=== PATIENT | female | born 1985 | race Caucasian/White ===

== ENCOUNTER → 2018-04-17 10:10 | Outpatient (CLI) | payer OTHER, SELFPAY ==
[2018-04-17 11:45] LABS: Magnesium 2.1 mg/dL (1.6-2.6); T4 Free Direct 0.85 ng/dL (0.76-1.46); Thyroid Stim Hormone (TSH) 1.52 uIU/mL (0.358-3.74)
== END ==
PROVIDERS: Family Provider Family Medicine; PCP Family Medicine; Visit Provider Family Medicine
DX: R00.2 Palpitations (principal)
CPT/HCPCS: 36415; 83735; 84439; 84443

== ENCOUNTER → 2018-06-13 13:14 | Outpatient (CLI) | payer OTHER, SELFPAY ==
--- NOTE | 2018-06-13 13:20 | RAD_ITS ---
STUDY: X-RAY - LEFT FOOT CLINICAL: Female, 32 years old. Left foot pain, predominantly in the heel TECHNIQUE: 3 view(s) of the foot. COMPARISON: None. FINDINGS: No acute fracture or dislocation. Prominent accessory ossicle or unhealed fracture at the base of the fifth metatarsal. No significant plantar spur. Normal soft tissues. RAD/Foot min 3 Views IMPRESSION: No acute findings. No significant plantar spur. Remainder as above Electronically Signed: Marvin Boudreaux DO at 12:10 EDT Tel , Service support ,
== END ==
PROVIDERS: Family Provider Family Medicine; PCP Family Medicine; Referring Provider Family Medicine; Visit Provider Family Medicine
DX: M72.2 Plantar fascial fibromatosis (principal); I49.3 Ventricular premature depolarization; R00.2 Palpitations
CPT/HCPCS: 73630; 93225; 93226

== ENCOUNTER → 2018-06-28 07:49 | Outpatient (CLI) | payer OTHER, SELFPAY ==
[2018-06-27 15:36] VITALS: BMI 54.3
--- NOTE | 2018-06-28 07:52 | ECHOCS_ITS ---
Reason For Study: Palpitations Procedure This was a 2D Doppler, Color Flow transthoracic echocardiogram. The study was technically difficult. Contrast injection was performed. Exam performed in department. Left Ventricle Normal LV size. Left ventricular systolic function is normal. The estimated ejection fraction is 65 %. Normal diastology for age. No regional wall motion abnormalities noted. Right Ventricle Normal RV size. Normal systolic function. Atria Normal left atrium. Normal right atrium. No doppler evidence for ASD. Bubble contrast study negative for right to left interatrial shunt. Mitral Valve There is no mitral annular calcification. Normal mitral valve. Trivial mitral valve insufficiency. Tricuspid Valve Normal tricuspid valve. Trivial tricuspid valve insufficiency. Unable to estimate RV systolic pressure/pulmonary artery pressure due to technically difficult study. Aortic Valve The aortic valve is not well visualized. Pulmonic Valve The pulmonic valve is not well visualized. Great Vessels lThe aortic root is not well visualized. Pericardium/Pleural No pericardial effusion. Medication 22 gauge I.V. with prn adaptor inserted into left arm. Performed a rapid injection of agitated mix of 9 cc saline and 1cc air to assess for atrial septal defect. Diluted definity 4ml given slow IV push to enhance endocardial definition. MMode/2D Measurements & Calculations LVIDd: 4.8 cm IVSd: 1.0 cm LA dimension: 3.7 cm LVIDs: 3.6 cm LVPWd: 1.4 cm RVDd: 4.3 cm FS: 25.1 % LAV(MOD-bp): 65.3 ml LVAd ap4: 37.5 cm2 SV(MOD-sp4): 75.8 ml LAV(MOD-bp) Indexed: 26.6 ml/m2 EDV(MOD-sp4): 129.8 ml LAV(MOD-sp2): 61.4 ml EDV(sp4-el): 133.4 ml LAV(MOD-sp4): 57.7 ml LVAs ap4: 21.5 cm2 ESV(MOD-sp4): 54.1 ml ESV(sp4-el): 55.8 ml EF(MOD-sp4): 58.4 % EF(sp4-el): 58.1 % SV(sp4-el): 77.6 ml LA A4 area: 20.1 cm2 RA A4 area: 9.9 cm2 Time Measurements MV dec time: 0.15 sec Doppler Measurements & Calculations MV E max kaleb: 112.7 cm/sec Lat Peak E' Kaleb: 15.9 cm/sec Med Peak E' Kaleb: 11.6 cm/sec MV A max kaleb: 51.8 cm/sec E/E' lat: 7.1 E/E' med: 9.7 MV E/A: 2.2 Ao V2 max: 158.9 cm/sec LV V1 max: 130.2 cm/sec PA V2 max: 99.2 cm/sec Ao max P.1 mmHg LV V1 max P.8 mmHg Ao V2 mean: 109.6 cm/sec LV V1 mean P.2 mmHg Ao mean P.4 mmHg LV V1 mean: 81.6 cm/sec Ao V2 VTI: 31.2 cm LV V1 VTI: 27.8 cm Interpretation Summary The study was technically difficult. Contrast injection was performed. Left ventricular systolic function is normal. The estimated ejection fraction is 65 %. Trivial mitral valve insufficiency. Trivial tricuspid valve insufficiency. Unable to estimate RV systolic pressure/pulmonary artery pressure due to technically difficult study. Normal diastology for age. Bubble contrast study negative for right to left interatrial shunt. Ordering Physician: Homero Mohan Performed By: Refugio Flores RCS
== END ==
PROVIDERS: Family Provider Internal Medicine; PCP Internal Medicine; Visit Provider Internal Medicine Cardiovascular Disease
DX: I49.3 Ventricular premature depolarization (principal); R00.2 Palpitations
CPT/HCPCS: 93306; Q9957; A4216; C8929

== ENCOUNTER → 2018-07-24 07:40 | Outpatient (CLI) | payer OTHER, SELFPAY ==
[2018-07-12 10:41] VITALS: BMI 54.3
--- NOTE | 2018-07-24 09:37 | RAD_ITS ---
STUDY: X-RAY CHEST REASON FOR EXAM: Female, 32 years old. Shortness of breath. Cough. TECHNIQUE: PA and lateral views of the chest. COMPARISON: November 20, 2015. FINDINGS: Mildly improved inspiratory effort RIBS prior study. There is no infiltrate or mass. There is no demonstrated pleural abnormality. Normal size heart. Normal mediastinum and talat. Normal visualized pulmonary arteries. Normal visualized aortic arch and descending thoracic aorta. Normal visualized thoracic spine. Normal visualized ribs, clavicles, and shoulders. There is no demonstrated abnormality of the visualized soft tissue structures of the upper abdomen. RAD/Chest PA and Lateral IMPRESSION: No acute cardiopulmonary disease. Electronically Signed: Tod Ellis DO at 22:21 EST Tel [phone], Service support ,
--- NOTE | 2018-07-24 16:19 | PFTCOMP_ITS ---
COMPLETE PULMONARY FUNCTION TEST INTERPRETATION Brief HPI: Patient is a 32 year old female, currently under the care of Dr. Mohan, who presents to [facility] for complete pulmonary function tests secondary to diagnosis of dyspnea. Respiratory therapist reports good effort and reproducible results. Interpretation: Forced expiration spirometry shows no large airways obstructive ventilatory defect with an FEV1 of 71% predicted. There is no significant bronchodilator response by strict ATS criteria. Spirograms are of good quality and plateau normally. The respiratory flow volume loop shows decreased expiratory flow rates at high lung volumes consistent with small airways obstruction. Lung volumes by body plethysmography show total lung capacity at the lower limit of normal at 4.67 L, 88% predicted. All other lung volumes are within normal limits. Diffusion capacity by carbon monoxide is slightly decreased at 72% predicted. The airway resistance is normal. Compared to previous pulmonary function tests from 11/08/2016, there has been a significant reduction in FVC, FEV1 and TLC by 14%, 14% and 11% respectively. Impression: These pulmonary function tests are grossly within normal limits, but lung volumes are at the lower limit of normal. Cannot exclude early restrictive lung disease, especially given decrease compared to previous testing.
--- OUTSIDE RECORDS SUMMARY | 2018-09-09 05:41 | XMS RPT_ITS ---
:1985 Author Organization OHIP Support Name Relationship Address Phone GEOVANY GLOVER Unavailable [address] + [place] [address] GABBY CRISTINA Unavailable [address] + [place] [address] [facility] Unavailable [address] + [place] [address] GEOVANY GLOVER Unavailable [address] + [place] [address] GABBY CRISTINA Unavailable [address] + [place] [address] [facility] Unavailable [address] + [place] [address] GEOVANY GLOVER Unavailable [address] + [place] [address] GABBY CRISTINA Unavailable [address] + [place] [address] [facility] Unavailable [address] + [place] [address] ADALBERTO GEOVANY Unavailable [address] + [place] [address] GABBY CRISTINA Unavailable [address] + [place] [address] [facility] Unavailable [address] + [place] [address] ADALBERTO GEOVANY Unavailable [address] + [place] [address] GABBY CRISTINA Unavailable [address] + [place] [address] [facility] Unavailable [address] + [place] [address] GLOVER, GEOVANY Unavailable [address] + [place] [address] JAYANT CRISTINAELL Unavailable [address] + [place] [address] [facility] Unavailable [address] + [place] [address] GLOVER, GEOVANY Unavailable [address] + [place] [address] SHYANNE MACHELL Unavailable [address] + [facility] [place] [address] [facility] Unavailable [address] + [place] [address] GLOVER, GEOVANY Unavailable [address] + [place] [address] JAYANT CRISTINAELL Unavailable [address] + [place] [address] [facility] Unavailable [address] + [place] [address] GLOVER, GEOVANY Unavailable [address] + [place] [address] JAYANT CRISTINAELL Unavailable [address] + [place] [address] [facility] Unavailable [address] + [place] [address] GLOVER, GEOVANY Unavailable [address] + [place] [address] SHYANNE MACHELL Unavailable [address] + [place] [address] [facility] Unavailable [address] + [place] [address] GLOVER, GEOVANY Unavailable [address] + [place] [address] SHYANNE MACHELL Unavailable [address] + [place] [address] [facility] Unavailable [address] + [place] [address] GLOVER, GEOVANY Unavailable [address] + [place] [address] GABBY CRISTINA Unavailable [address] + [place] [address] [facility] Unavailable [address] + [place] [address] [facility] Unavailable [address] + [place] [address] [facility] Unavailable [address] + [place] [address] [facility] Unavailable [address] + [place] [address] GLOVER, KERRIE Unavailable [address] + [place] [address] [facility] Unavailable [address] + [place] [address] [facility] Unavailable [address] + [place] [address] [facility] Unavailable [address] + [place] [address] GLOVER, KERRIE Unavailable [address] + [place] [address] GABBY CRISTINA Unavailable [address] + [place] [address] [facility] Unavailable [address] + [place] [address] GABBY CRISTINA Unavailable [address] + [place] [address] [facility] Unavailable [address] + [place] [address] GABBY CRISTINA Unavailable [address] + [facility] [place] [address] [facility] Unavailable [address] + [place] [address] GABBY CRISTINA Unavailable [address] + [place] [address] [facility] Unavailable [address] + [place] [address] GABBY CRISTINA Unavailable [address] + [place] [address] [facility] Unavailable [address] + [place] [address] Care Team Providers Name Role Phone MINNIE POLO (TOUR OPERATOR) Attending Unavailable POLO, MINNIE (TOUR OPERATOR) Referring Unavailable POLO, MINNIE (TOUR OPERATOR) Attending Unavailable POLO, MINNIE (TOUR OPERATOR) Referring Unavailable Moodispaw, Homero Attending Unavailable Moodispaw, Homero Referring Unavailable Oleghe, Efewongbe Primary Care Unavailable JAMES SUAREZ Attending Unavailable Oleghe, Efewongbe Attending Unavailable Oleghe, Efewongbe Primary Care Unavailable Oleghe, Efewongbe Attending Unavailable Oleghe, Efewongbe Primary Care Unavailable Moodispaw, Homero Attending Unavailable Oleghe, Efewongbe Primary Care Unavailable Moodispasheila, Homero Referring Unavailable Moodispaw, Homero Attending Unavailable Oleghe, Efewongbe Primary Care Unavailable Moodispaw, Homero Referring Unavailable Moodispaw, Homero Attending Unavailable Nadege, Kenyon Referring Unavailable Moodispaw, Homero Attending Unavailable Moodispaw, Homero Referring Unavailable Oleghe, Efewongbe Attending Unavailable Oleghe, Efewongbe Referring Unavailable Nadege, Kenyon Primary Care Unavailable Nadege, Kenyon Attending Unavailable Nadege, Kenyon Referring Unavailable MoodispaHomero sosa Consulting Unavailable MoodispaHomero sosa Attending Unavailable MoodispawHomero Referring Unavailable Oleghe, Efewongbe Primary Care Unavailable Moodlasha, Homero Attending Unavailable NadegeKenyon wallace Referring Unavailable Guicho Hollis Attending Unavailable Mary Riley Referring Unavailable Nadege, Kenyon Attending Unavailable Nadege, Kenyon Referring Unavailable Nadege, Kenyon Primary Care Unavailable NadegeKenyon wallace Attending Unavailable Nadege, Kenyon Primary Care Unavailable Nadege, Kenyon Attending Unavailable Nadege, Kenyon Referring Unavailable Nadege, Kenyon Primary Care Unavailable ASSESSMENT, HEALTH RISK Attending Unavailable ASSESSMENT, HEALTH RISK Referring Unavailable Nadege, Kenyon Primary Care Unavailable Al Prajapati Attending Unavailable Moodispaw, Homero Referring Unavailable Al Prajapati Attending Unavailable Oleghe, Efewongbe Referring Unavailable Moodispaw, Homero Attending Unavailable MoodispawHomero Referring Unavailable Oleghe, Efewongbe Primary Care Unavailable MoodispaHomero sosa Consulting Unavailable Moodispaw, Homero Attending Unavailable OlegheSatishonggalina Primary Care [facility] Unavailable [facility] Referring Unavailable PROBLEMS PROBLEMS DATE TYPE CONDITION / CODE ATTENDING STATUS SOURCE 08/31/2018 Unknown E66.9 - Obesity, Olegallitoe, Active [place] unspecified / ewong[facility] E66.9(ICD-10) Hospital Repository 08/31/2018 Unknown Z71.3 - Dietary Oleghe, Active [place] counseling and [facility] Community surveillance / Hospital Z71.3(ICD-10) Repository 08/29/2018 Unknown M79.672 - Pain in [place], [facility] [place] [facility] M79.672(ICD-10) Hospital Repository 08/23/2018 Unknown I10 - Essential MoodispaHomero sosa Active [place] (primary) Community hypertension / Hospital I10(ICD-10) Repository 08/10/2018 Unknown J18.9 - Pneumonia, HEVER SUAREZLEY Active [place] unspecified organism Community / J18.9(ICD-10) Hospital Repository 08/01/2018 Unknown J45.40 - Moderate AloAl suggs Active [place] persistent asthma, Community uncomplicated / Hospital J45.40(ICD-10) Repository 08/20/2018 Unknown I36.1 - Nonrheumatic Telma, Guicho Active [place] tricuspid (valve) Community insufficiency / Hospital I36.1(ICD-10) Repository 07/27/2018 Unknown I49.3 - Ventricular MoodispaHomero sosa Active [place] premature Community depolarization / Hospital I49.3(ICD-10) Repository 07/27/2018 Unknown R00.2 - Palpitations MoodispaHomero sosa Active [place] / R00.2(ICD-10) Community Hospital Repository 07/27/2018 Unknown I49.1 - Atrial MoodispaHomero sosa Active [place] premature Community depolarization / Hospital I49.1(ICD-10) Repository 08/02/2018 Unknown R06.02 - Shortness AloAl suggs Active [place] of breath / Community R06.02(ICD-10) Hospital Repository 06/27/2018 Unknown I34.1 - Nonrheumatic Oleghe, Active [place] [facility]valve[facility] prolapse [facility] I34.1(ICD-10) Repository 06/25/2018 Unknown 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 [place] fascial fibromatosis [facility] / M72.2(ICD-10) Hospital Repository PROCEDURES PROCEDURES No Procedure Records FoundRESULTS RESULTS RENAL ARTERY DUPLEX Observed: 09/04/2018 Status: F Source: [place] 11:08 PM [facility] REPOSITORY [facility] Cardiovascular Services [address] [place] [address] Renal Artery Duplex Ultrasound 09/03/18 0854 MR#: [id number] Acct: [id number] Name: GARRY GLOVER Rep #: [id number] : 1985 33 From: Manuel Henderson MD Attending Dr: Homero Mohan MD Status: REG CLI Ordering Dr: Homero Mohan MD Date: 09/03/18 Location: [facility] Sex: F C Admitted: Reason For Study: HYPERTENSION Right Renal Artery Left Renal Artery Right renal artery ostium Left renal artery ostium 130.0/35.1 129.0/36.9 RSV/EDV. PSV/EDV. Right renal artery proximal Left renal artery proximal PSV/EDV 122.0/32.6 PSV/EDV. 121.0/32.7 . Right renal artery mid 130.0/28.8 Left renal artery mid 122.0/29.2 PSV/EDV. PSV/EDV . Right renal artery distal Left renal artery distal 122.0/40.1 139.0/41.6 PSV/EDV. PSV/EDV. Right Renal Parenchyma Left Renal Parenchyma Upper Pole Medula 43.8/14.1 Left upper pole medulla 52.9/18.9 PSV/EDV. PSV/EDV . Right upper pole medulla EDR .32 . Left upper pole medulla EDR .36 . Right upper pole medulla R.I. .68 . Left upper pole medulla R.I. .64 . Upper Dipak Cortx 32.7/10.7 PSV/EDV. UP Cortex 29.0/9.2 PSV/EDV. Right upper pole cortex EDR .33 . Left upper pole cortex EDR .32 . Right upper pole cortex R.I. .67 . Left upper pole cortex R.I. .68 . Right lower Pole medulla 31.2/12.8 Left lower Pole medulla 42.8/13.4 PSV/EDV . PSV/EDV . Right lower pole medulla EDR .41 . Left lower pole medulla EDR .31 . Right lower pole medulla R.I. .59 . Left lower pole medulla R.I. .69 . Lower Pole Cortex 32.1/10.1 Lower Pole Cortx 34.8/9.8 PSV/EDV. PSV/EDV. Left lower pole cortex EDR .28 . Right lower pole cortex EDR .31 . Left lower pole cortex R.I. .72 . Right lower pole cortex R.I. .69 . Left Renal Hilar Right Renal Hilar LT Hilar avg 66.6/17.3 PSV/EDV . Right Hilar avg 70.7/26.4 PSV/EDV. Left hilar acceleration time 59 Right hilar acceleration time 59 m/sec. m/sec. Left Renal Dimensions Right Renal Dimensions Left kidney size 11.5 cm . Right kidney size 10.6 cm . Left cortical dimension 1.5 cm . Right cortical dimension 1.5 cm . Aorta Unable to visualize aorta due to body habitus. Interpretation Summary Renal artery velocities are bilaterally normal. Acceleration times are normal bilaterally. There is no evidence of hemodynamically significant renal artery stenosis on either side. Renovascular resistance appears to be bilaterally normal . Cortical dimensions are bilaterally normal. Kidneys appear normal in size bilaterally. The intra-abdominal aorta was not visualized due to the patient's body habitus. Ordering Physician: Homero Mohan Referring Physician: Lisset Ford Performed By: Vonda Fischer RVT 09/04/18 2307 Date Manuel Henderson MD CC: Lisset Ford MD; Homero Mohan MD Date Dictated: 09/03/1854 Date Transcribed: 09/04/182306 [employer] Production Manager: Signed INTERNAL MEDICINE Observed: 08/30/2018 Status: F Source: [place] OFFICE VISIT 1:13 PM [facility] Internal Medicine [address] [place] [address] [place] [address] OFFICE VISIT Date of Service: 08/29/18 MR#: [id number] Acct: [id number] Name: GARRY GLOVER Rep #: [id number] : 1985 Provider: Lisset Ford MD Age/Sex: 33/F Location: [facility] Status: Signed Intake Vital Signs08/29/18 Body Mass Index (BMI) 54.3 08/29/18 Height 5 ft 5.5 in Intake Visit Reasons: 2 MO F/U Chief Complaint: f/u visit Is patient in pain?: Yes (left foot pain) Allergies acetaminophen [From Vicodin] Adverse Reaction (Verified 08/23/18 10:31) Other azithromycin [From Zithromax] Adverse Reaction (Verified 08/23/18 10:31) Rash cortisone Adverse Reaction (Verified 08/23/18 10:31) Hives hydrocodone bitartrate [From Vicodin] Adverse Reaction (Verified 08/23/18 10:31) Other PAPER TAPE Adverse Reaction (Uncoded 08/23/18 10:31) Rash Medications Albuterol IH (ProAir) [Proair Hfa] 1 puff INHALATION Q4H PRN PRN 08/22/14 [History Confirmed 08/23/18] Acetaminophen [Tylenol] 1,000 mg PO Q6H PRN PRN 11/22/15 [History Confirmed 08/23/18] fluticasone 100 mcg-vilanterol 25 mcg/dose powder for inhalation 1 inh INHALATION Q24H #60 ea 08/01/18 [Rx Confirmed 08/23/18] metoprolol tartrate 100 mg tablet 100 mg PO BID 08/01/18 [History Confirmed 08/23/18] amlodipine 2.5 mg tablet 2.5 mg PO DAILY #30 tab 08/23/18 [Rx Confirmed 08/23/18] norethindrone (contraceptive) 0.35 mg tablet 0.35 mg PO DAILY 08/23/18 [History Confirmed 08/23/18] omeprazole 40 mg capsule,delayed release 40 mg PO DAILY PRN 08/23/18 [History Confirmed 08/23/18] Is last menstrual period known: Yes Post menopausal: No PFSH Medical History GERD (gastroesophageal reflux disease) (Chronic) Essential hypertension (Chronic) Hernia (Chronic) Chronic headaches (Chronic) Asthma (Chronic) Arthritis (Chronic) Seasonal allergies (Chronic) Mitral valve prolapse (Chronic) Premature ventricular contraction (Chronic) Palpitations (Chronic) Surgical History History of orthopedic surgery (Acute) History of tonsillectomy and adenoidectomy (Acute) History of wisdom tooth extraction (Acute) Family History Father Cancer Mother Hypertension Thyroid disorder Grandmother Heart disease Social History Smoking Status: Never smoker alcohol intake: current alcohol intake frequency: holidays/special occasions only substance use type: does not use what type of physical activity do you participate in: walking frequency: 3-4 times per week HPI HPI Chief Complaint: f/u visit Details: GARRY GLOVER, is a 33yo F who presents to the office today for follow up. She also has some concerns. She reports a history of plantar fasciitis. However, lately she has noted worsening left foot pain. Said to be worse after standing for prolonged hours and on standing/walking after prolonged period of sitting only. She has tried stretching, wearing tennis shoes and supportive shoes without any significant improvement. Shortness of breath is also said to have improved since getting on Breo. She states that she is better able to do activities without significant limitation. ROS Const Constitutional: No body ache, chills, headache(s), weakness or fever(s) Eyes Eyes: No blurry vision, change in vision, eye pain or discharge ENT ENT: No headache(s), abnormal hearing, ear pain, ear pressure, tinnitus, dizziness/vertigo or balance problems Resp Respiratory: No cough, shortness of breath or wheezing Cardio Cardiology: No chest pain at rest, shortness of breath, dyspnea on exertion or palpitations Gastro GI: No abdominal pain or bloating Neuro Neurology: No headache(s), weakness or abnormal hearing Aller/Imm Allergy/Immunologic: No wheezing Exam Const General: cooperative, no acute distress Orientation: awake, oriented x3, alert HENMT Head: atraumatic, normocephalic Resp Effort AND Inspection: normal respiratory effort, able to speak in complete sentences Auscultation: Bilateral: Clear to Auscultation Cardio Rate: regular rate Rhythm: regular rhythm Heart Sounds: S1 normal, S2 normal GI Inspection: obesity Palpation: soft, no hepatosplenomegaly Neuro General: alert, awake, oriented x3, CN's II-XI intact bilaterally, moves all extremities Extrem General: pedal edema Psych Appearance: grossly normal Mental Status: mental status grossly normal Mood: congruent mood Affect: normal affect Assessment AND Plan 1. Left foot pain M79.672 Plan Most likely secondary to plantar fasciitis. Conservative measures not helpful. Referred to podiatry. Orders Referrals: 2. Shortness of breath R06.02 Plan Improved on Breo. Better tolerance of activity. Continue current management. 3. Essential hypertension I10 Plan Better controlled. Blood pressure in office at 128/88 mmHg. Recently started on amlodipine. Patient however states that typically is in the mid to upper 130s at home. Continue blood pressure log. OK to increase amlodipine to 5 mg daily if it remains in the 130s. Continue lifestyle and dietary modifications. Follow-up in 3 months. 4. Morbid obesity E66.01 Plan Currently following up with the [facility] weight program. Has lost a couple pounds. Patient was encouraged. This note was generated with [employer] dictation software. It may contain incorrect words, spelling, and punctuation that were not noted in checking the note before signing. Coding Level of Care Code Off vis,est,level 3 Diagnoses Left foot pain M79.672 Shortness of breath R06.02 Essential hypertension I10 Morbid obesity E66.01 08/30/18 1313 <Electronically signed by Lisset Ford MD> Date Lisset Ford MD Cosigner Signature: Date (if applicable) CC: CARDIOLOGY VISIT Observed: 08/23/2018 Status: F Source: [place] REPORT 5:57 PM [facility] REPOSITORY [facility] [address] [place] [address] OFFICE VISIT Date of Service: 08/23/18 MR#: [id number] Acct: [id number] Name: GARRY GLOVER Rep #: [id number] : 1985 Provider: Homero Mohan MD Age/Sex: 33/F Location: [facility] Status: Signed HPI HPI Details: GARRY GLOVER, is a 33 F who presents to the office today for outpatient cardiovascular follow up. Overall she states she is doing better with respect of her heart rate on her current medications. She is also undergoing pulmonary evaluation. She believes overall there is some improvement. However in the interim she was diagnosed with pneumonia. She states this did provide her with some setback with respect to her ongoing evaluation care. She is recuperating from that nail. She is feeling better overall. She is now trying to get back on her appropriate dietary adjustments with her dietary consults in order to try and bring her weight under better control. She is not complaining at this time of any classic angina pectoris. There have been no obvious evidence of acute CHF or pulmonary edema. There has been no near syncope or syncope. She was concerned that her blood pressure remains somewhat elevated. She has undergone evaluation for this in the past. In the past her renal artery duplex study was considered negative. Intake Vital Signs08/23/18 Body Mass Index (BMI) 54.3 08/23/18 Height 5 ft 5.5 in 08/23/18 Weight: 335 lb 08/23/18 Body Mass Index (BMI) 54.8 08/23/18 Blood Pressure 152/98 H Intake Visit Reasons: 6 w fu Allergies acetaminophen [From Vicodin] Adverse Reaction (Verified 08/23/18 10:31) Other azithromycin [From Zithromax] Adverse Reaction (Verified 08/23/18 10:31) Rash cortisone Adverse Reaction (Verified 08/23/18 10:31) Hives hydrocodone bitartrate [From Vicodin] Adverse Reaction (Verified 08/23/18 10:31) Other PAPER TAPE Adverse Reaction (Uncoded 08/23/18 10:31) Rash Medications Albuterol IH (ProAir) [Proair Hfa] 1 puff INHALATION Q4H PRN PRN 08/22/14 [History Confirmed 08/23/18] Acetaminophen [Tylenol] 1,000 mg PO Q6H PRN PRN 11/22/15 [History Confirmed 08/23/18] fluticasone 100 mcg-vilanterol 25 mcg/dose powder for inhalation 1 inh INHALATION Q24H #60 ea 08/01/18 [Rx Confirmed 08/23/18] metoprolol tartrate 100 mg tablet 100 mg PO BID 08/01/18 [History Confirmed 08/23/18] amlodipine 2.5 mg tablet 2.5 mg PO DAILY #30 tab 08/23/18 [Rx Confirmed 08/23/18] norethindrone (contraceptive) 0.35 mg tablet 0.35 mg PO DAILY 08/23/18 [History Confirmed 08/23/18] omeprazole 40 mg capsule,delayed release 40 mg PO DAILY PRN 08/23/18 [History Confirmed 08/23/18] PFSH Medical History GERD (gastroesophageal reflux disease) (Chronic) Essential hypertension (Chronic) Hernia (Chronic) Chronic headaches (Chronic) Asthma (Chronic) Arthritis (Chronic) Seasonal allergies (Chronic) Mitral valve prolapse (Chronic) Premature ventricular contraction (Chronic) Palpitations (Chronic) Surgical History History of orthopedic surgery (Acute) History of tonsillectomy and adenoidectomy (Acute) History of wisdom tooth extraction (Acute) Family History Father Cancer Mother Hypertension Thyroid disorder Grandmother Heart disease Social History Smoking Status: Never smoker alcohol intake: current alcohol intake frequency: holidays/special occasions only substance use type: does not use what type of physical activity do you participate in: walking frequency: 3-4 times per week ROS Const Const: Negative for fatigue, weakness, weight gain, weight loss, frequent falls or excessive sweating Eyes Eyes: Negative for change in vision, blurry vision or transient loss of vision ENT ENT: Negative for dizziness or balance problems Cardio Chest Pain: No Palpitations: Yes (every now and then; noted most with activity, not as frequent) feels like its: fast, skipping Edema: None Muscle aches with walking: None Resp Respiratory: Positive for SOB with activity (has improved since starting breo, noted with palpitations); negative for SOB at rest Additional Details: Patient recovering from pneumonia and small pleural effusion which started with back pain. Patient reports that back pain had resolved, however, noted back pain this morning. GI GI: Negative vomiting or vomiting blood/hematemesis : Negative for hematuria Musc Musc: Negative for balance problems, muscle aches/ myalgia, muscle weakness or joint pain Skin Skin: Negative non-healing lesions or rash Neuro Neuro: Negative for weakness, blurry vision, dizziness, lightheadedness, frequent falls or orthostatic symptoms Edson Hematologic/Lymphatic: Negative for easy bleeding Endo Endo: Negative for fatigue or excessive sweating Psych Psych: Negative for anxiety or depression Allergy Allergy/Immunology: Negative for hives, Negative for rash Cardiology Exam Const Appearance: cooperative, healthy appearing, comfortable, no acute distress, well developed and well groomed Nutritional Appearance: obese Orientation: alert, awake and oriented x3 Head Head: normal to inspection, normocephalic and atraumatic Ears: hearing grossly normal bilaterally Nose: external nose normal Mouth: oral mucosae normal Teeth and gingiva: dentition normal Eyes Eyelids: eyelids normal Conjunctivae: conjunctivae normal Pupils: PERRL EOM: EOM intact bilaterally Neck Neck: normal visual inspection and full ROM Carotids: normal carotid upstroke Chest Chest inspection: normal inspection of the chest, symmetric chest movement and normal respiratory effort Auscultation: Bilateral: Clear to Auscultation Cardio Palpation: normal PMI Rate: regular rate Rhythm: regular rhythm Heart sounds: S1 normal and S2 normal GI GI: obese Neuro General: alert, awake, oriented x3, moves all extremities, no focal sensory deficit and no focal motor deficits Skin Skin: no rashes or lesions noted Extremities Pulses: Normal: Right Radial Pulse, Left Radial Pulse Lower Extremity Edema: None: Bilateral Psych Psychological: normal affect Assessment AND Plan 1. Palpitations R00.2 Plan At the present time she will continue her current beta kalina therapy. She will continue to be monitored for any obvious concerns. 2. PAC (premature atrial contraction) I49.1 Plan She does have a history of PACs and PVCs. Again she will continue her beta kalina therapy. 3. Premature ventricular beat I49.3 Plan Again she has a history of ventricular ectopy. Overall her beta kalina she appears to be doing better. She will continue her current therapy. 4. Mitral valve prolapse I34.1 Plan She does have a history of mitral valve prolapse. She has been reevaluated. This has included follow up transthoracic echocardiogram. This did not demonstrate any obvious mitral valve prolapse at the time. She had trivial MR. 5. Essential hypertension I10 Plan Her blood pressure has remained elevated. She will be placed on amlodipine 2.5 mg a day. Orders Orders: Plan Detail Other Medications New: Additional Comments She was encouraged to continue her dietary program to bring her weight under better control which hopefully would help her underlying cardiac rate and rhythm as well as her blood pressure, etc. Thank you for allowing me to participate in the care of your patient. Please don't hesitate to call if any issues arise. This note was generated using a voice recognition system and there may be incorrect words, spelling or punctuation that were not noted when reviewing the office note prior to saving. Follow Up 3 Months (with PFM) Coding Level of Care Code Off vis,est,level 4 Diagnoses Palpitations R00.2 PAC (premature atrial contraction) I49.1 Premature ventricular beat I49.3 Mitral valve prolapse I34.1 Essential hypertension I10 Coding Level of Care Code Off vis,est,level 4 Diagnoses Palpitations R00.2 PAC (premature atrial contraction) I49.1 Premature ventricular beat I49.3 Mitral valve prolapse I34.1 Essential hypertension I10 Supplemental Info Supplemental Information Labs LDL Cholesterol 106 mg/dL (0-130) 04/17/18 HDL Cholesterol 40 mg/dL (40-) 04/17/18 Triglycerides 205 mg/dL (-199) H 04/17/18 VLDL Cholesterol 41 mg/dL (5-40) H 04/17/18 Diagnostics Electrocardiogram 07/12/18 Echocardiogram 06/28/18 Stress Echocardiogram 07/27/18 Chest X-Ray 08/10/18 Pulmonary Pulmonary Function Test 07/24/18 08/23/18 8625 <Electronically signed by Homero Mohan MD> Date Homero Mohan MD Cosign Signature: Date (if applicable) CC: Kenyon Light MD EMERGENCY DEPARTMENT Observed: 08/10/2018 Status: F Source: [place] SUMMARY 6:06 AM [facility] [place] REPOSITORY [facility] Medical Records Department [address] [place] [address] Emergency Department Summary 08/10/18 0316 MR#: [id number] Acct: [id number] Name: GARRY LGOVER Rep #: [id number] : 1985 32 From: James Suarez MD PCP: Lisset Ford MD Status: REG ER History of Present Illness Chief Complaint: Flank Pain Informant: Patient Onset: Yesterday Context: Gradual Onset Timing: Continuous, Waxes and wanes Quality: ache, sharp Location: left low back Current Severity: Severe Maximum Severity: Severe Worsened by: deep inspiration Relieved by: breathing easier Associated Symptoms: feels like occasional spasms in that area Narrative: Does not recall any injury or movements/lifting that could have resulted in a muscle strain. Pain is low in her left low back. It does not radiate into her side, front/abdomen, chest, or lower extremity. No urinary symptoms or hematuria. Never had a kidney stone before. No history of DVT or PE. She has been doing different types of movements to try to reproduce the pain but it does not necessarily make things worse. She states she was diagnosed with an incidentally found a hernia somewhere in her left side on a CT scan that was done for other reasons, and she states it was pointed out to her in a different area than this pain. She denies any nausea or vomiting, she has had normal bowel movements recently. - Past Medical History (1) Arthritis Status: Chronic (2) Asthma Status: Chronic (3) Chronic headaches Status: Chronic (4) Essential hypertension Status: Chronic (5) GERD (gastroesophageal reflux disease) Status: Chronic (6) Hernia Status: Chronic Comment: ULQ (7) Mitral valve prolapse Status: Chronic (8) Premature ventricular contraction Status: Chronic (9) Seasonal allergies Status: Chronic Past Medical History - Allergies and Home Meds Allergies/Adverse Reactions: Allergies acetaminophen [From Vicodin] Adverse Reaction (Verified 08/10/18 02:45) Other azithromycin [From Zithromax] Adverse Reaction (Verified 08/10/18 02:45) Rash cortisone Adverse Reaction (Verified 08/10/18 02:45) Hives hydrocodone bitartrate [From Vicodin] Adverse Reaction (Verified 08/10/18 02:45) Other PAPER TAPE Adverse Reaction (Uncoded 08/10/18 02:45) Rash Primary Care Physician: Lisset Ford MD [Primary Care Provider] - Surgical History: - - recent right ankle surgery, tonsil, wisdom teeth Smoking Status: Never smoker Drugs: None - Family History Maternal Family History: Family History (Last Reviewed 08/01/18 @ 13:14 by Amberly Rich) Father Cancer Mother Hypertension Thyroid disorder Grandmother Heart disease Family History: Reports: Hypertension Paternal Family History: Family History (Last Reviewed 08/01/18 @ 13:14 by Amberly Rich) Father Cancer Mother Hypertension Thyroid disorder Grandmother Heart disease Family History: Reports: - - leukemia, hodgkins lymphoma Review of Systems General: Denies: Chills, Fever, Sweats Cardiovascular: Denies: Chest pain, Palpitations Respiratory: Reports: Dyspnea - due to pain on inspiration only, Cough. Denies: Dyspnea on exertion Gastrointestinal: Denies: Abdominal pain, Nausea, Vomiting, Diarrhea Genitourinary: Denies: Dysuria, Hematuria, Frequency Musculoskeletal: Reports: Back pain. Denies: Extremity Pain Skin: Denies: Rash, Wounds Neurological: Denies: Headache, Weakness, Numbness Physical Exam Vital Signs/Narrative: Vital Signs 08/10/18 02:47 179/99 H 08/10/18 02:40 98.3 F 118 H 16 188/100 H 97 Inital Vital Signs reviewed: Yes General: Well nourished, Well developed, - - Uncomfortable, NAD Head: Normocephalic, Atraumatic Eyes: Perrl, EOMI Neck: Supple, Nontender Cardiovascular: Regular rate, Regular rhythm, No murmurs Respiratory: No distress, CTA bilaterally, Chest nontender Abdomen: Soft, Nontender, Nondistended, Normal bowel sounds Back: Normal Inspection, - - Tender to palpation in her left low back, near or just distal/caudal to the 11th rib tip. No rash here. Negative straight leg raise, but pain slightly increases when her leg is on the way down to the bed. However, extending and flexing the thigh against resistance does not reproduce the pain. No true CVA tenderness.. Negative for: Spinal tenderness Extremities: Nontender, No edema Skin: Normal color, No rash Neurological: Alert, Oriented x3, Cranial nerves II-XII grossly intact, Normal Strength, Normal Sensation Psychological: Normal affect Diagnostic/Tx/Re-eval Impressions Abdomen/Pelvis CT 08/10/18 03:15 IMPRESSION: 1. Left lower lobe airspace consolidation with pleural effusion likely represents pneumonia. 2. Hepatomegaly and hepatic steatosis. Electronically Signed: Myrtle Gomez MD at 4:25 EST , Service support , Chest X-Ray 08/10/18 04:36 IMPRESSION: No radiographic evidence of acute cardiopulmonary disease. Electronically Signed: Myrtle Gomez MD at 5:49 EST , Service support , 08/10/18 03:15 CT Abd [Abdomen/Pelvis without Cont] [CT] Stat 08/10/18 04:36 Chest PA and Lateral [RAD] Stat Laboratory Results Urine Color Yellow Urine Clarity Clear Urine pH 7.0 Ur Specific Busy 1.010 - Medical Decision Making Patient's pain is pleuritic, however it is very low lateral lumbar spine area, more suspicious for musculoskeletal pain, however NSAIDs did not help her pain at all; she took an Aleve multiple hours prior to coming to the ER, and I gave her Toradol 15 mg with no improvement. After morphine she is feeling much better, the pain is significantly dulled and she can breathe better. Her urine was normal, but we had obtained a CT abdomen/pelvis to look for causes of possible renal colic. Incidentally, she has airspace disease in the left lower lobe of the lung, with a small pleural effusion as well. I suspect this is a parapneumonic effusion. She has been having quite a bit of coughing and intermittent dyspnea lately, and in the past 1-2 months this has led to a stress echo that was unremarkable, and pulmonary function tests that led to her being placed on Brio and she is due to follow-up with pulmonology in several months. She states that her coughing is actually improved since she started the Brio a couple weeks ago. The appearance of the airspace disease on the CT is inconsistent with pulmonary infarct, she has no signs of a DVT and no risk for venous thrombo-embolic disease, and I suspect this does represent pneumonia as the radiologist interpreted it. Started her on Levaquin, and will prescribe her some pain medicine in addition to the rest of the antibiotic course, and recommended she follow-up with her real estate assistant or return to the ER if worsening despite the antibiotic. However, as I discussed with the patient, the upper part of the abdominal CT seems to show the entire area of pathology and I do not think she needs a chest CT emergently at this time. I did obtain a chest x-ray since it would be easier to follow this with chest x-ray, however it appears unremarkable. There is some blunting on my interpretation on the lateral, but it is the same appearance as her chest x-ray from 2 weeks ago. ED Disposition - Plan for ED Patient: Disposition: Home or Assisted Living Chief Complaint: Flank Pain Diagnosis: Community acquired pneumonia, Parapneumonic effusion Instructions: ED Effusion Pleural, ED Pneumonia Adult Prescriptions: Oxycodone HCl/Acetaminophen [Percocet 5/325] 1 tablet PO Q6H PRN PRN 3 Days #12 tablet PRN Reason: Pain Levofloxacin [Levaquin] 750 mg PO DAILY #4 tablet Referrals: Lisset Ford MD [Primary Care Provider] - Al Prajapati MD [STAFF PHYSICIAN] - (Call for follow-up appointment information) What to do if you have Problems For any increased pain, shortness of breath, bleeding, nausea or vomiting, chest pain, or any unexpected problems, contact your Primary Care Provider. Call [facility] ([phone]) or report to the closest Emergency Room. Call 911 if necessary. 08/10/18 06 <Electronically signed by James Suarez MD> Date James Suarez MD Cosigner Signature (If Indicated): Date CC: Lisset Ford MD CHEST PA AND LATERAL Observed: 08/10/2018 Status: F Source: [place] 4:37 AM [facility] [place] REPOSITORY [facility] Imaging Services [address] [place] [address] Chest PA and Lateral MR#: [id number] Acct: [id number] Name: GARRY GLOVER Rep #: [id number] : 1985 F 32 From: Myrtle Gomez MD PCP: Lisset Ford MD Status: REG ER Study: Chest PA and Lateral Date of Exam: 08/10/18 Exam# [id number] Ordering Dr: James Suarez MD STUDY: X-RAY CHEST REASON FOR EXAM: Female, 32 years old. Back pain radiating to both sides of the abdomen and flank pain. TECHNIQUE: PA and lateral views of the chest. COMPARISON: July 24, 2018. FINDINGS: The lungs are expanded. There is perihilar interstitial thickening present in both lungs. There is no demonstrated pleural abnormality. There is borderline cardiomegaly. Normal mediastinum and talat. Normal visualized pulmonary arteries. Normal visualized aortic arch and descending thoracic aorta. There is an increased kyphosis of the thoracic spine. Normal visualized ribs, clavicles, and shoulders. There is no demonstrated abnormality of the visualized soft tissue structures of the upper abdomen. RAD/Chest PA and Lateral IMPRESSION: No radiographic evidence of acute cardiopulmonary disease. Electronically Signed: Myrtle Gomez MD at 5:49 EST , Service support , CC: JAMES SUAREZ MD; Lisset Ford MD Biofuels Production Manager: Signed URINALYSIS, COMPLETE Collected: 08/10/2018 Status: F Source: [place] 3:28 AM [facility] [place] REPOSITORY Order Comment: How was Urine Obtained? CLEAN CATCH TYPE CODE TESTS RESULT OUT OF RANGE REFERENCE UNITS LAB L400.3000 Yellow COLOR Normal Yellow LAB L400.3050 Clear Normal CLARITY Clear LAB L400.3200 Normal mg/dl Normal GLUCOSE, UR Normal LAB L400.3300 Negative mg/dL Normal BILIRUBIN URINE Negative LAB L400.3400 Negative mg/dl Normal KETONE UR Negative LAB L400.3465 1.002-1.030 Normal SP.GR. DIPSTX 1.010 LAB L400.3550 5.0 - 8.0 pH UR Normal 7.0 LAB L400.3600 Negative mg/dl PROT Normal DIPSTX Negative LAB L400.3700 Normal mg/dl Normal UROBILI Normal LAB L400.3750 Negative Normal NITRITE UR Negative LAB L400.3780 Negative /ul Normal OCCULT BLOOD-UR Negative LAB L400.3800 Negative /ul LEUK Normal ESTERASE Negative LAB L400.4050 0-5 /hpf WBC 0 Normal SEEN LAB L400.4100 0-5 /hpf 0 Normal RBC-UA SEEN LAB L400.4150 5-10 /hpf SQUAM Normal EPI 0-5 SEEN LAB L400.4300 None Seen /hpf Normal BACTERIA RARE LAB L400.4350 <or=2+ /hpf 0 Normal MUCUS, URINE SEEN Performed By: #### L400.0001 #### [facility] [address] [place], [address] ,URINE Collected: 08/10/2018 Status: F Source: [place] 3:28 [facility] REPOSITORY TYPE CODE TESTS RESULT OUT OF REFERENCE UNITS RANGE LAB L400.8000 Negative Normal HCGUQUAL Negative Result Comment: Very dilute urine specimens, as indicated by a low specific gravity, may not contain field sales representative levels of hCG. If is still suspected, a first morning urine specimen should be collected 48 hours later and tested. Performed By: #### L400.7600 #### [facility] [address] [place], [address] ABDOMEN/PELVIS WITHOUT Observed: 08/10/2018 Status: F Source: [place] CONT 3:16 AM [facility] [place] REPOSITORY [facility] Imaging Services [address] [place] [address] Abdomen/Pelvis without Cont MR#: [id number] Acct: [id number] Name: GARRY GLOVER Rep #: [id number] : 1985 F 32 From: Myrtle Gomez MD PCP: Lisset Ford MD Status: REG ER Study: Abdomen/Pelvis without Cont Date of Exam: 08/10/18 Exam# [id number] Ordering Dr: James Suarez MD STUDY: CT ABDOMEN AND PELVIS WITHOUT CONTRAST REASON FOR EXAM: Female, 32 years old. Left-sided flank pain. RADIATION DOSAGE (If Supplied By Facility): CTDIvol = ( 24.18 ) mGy, DLP = ( 1226.21 ) mGycm TECHNIQUE: Transaxial images were obtained from the dome of the diaphragm to the symphysis pubis without oral contrast, and without intravenous contrast. Sagittal and coronal images were reconstructed. Individualized dose optimization techniques were used for this CT. COMPARISON: None. FINDINGS: There is left lower lobe airspace consolidation possibly representing pneumonia. There is also a small left-sided pleural effusion. The visualized portions of the heart are within normal limits. There is decreased attenuation of the liver consistent with steatosis. The liver is enlarged measuring up to 21.1 cm in greatest dimension. The gallbladder is contracted. Normal spleen. Normal pancreas. Normal bilateral adrenal glands. Normal right kidney. Normal left kidney. Normal visualized stomach. There is no evidence for dilated bowel, ascites or pneumoperitoneum. The small bowel has a grossly normal appearance. There is apparent thickening of the smiley of the mid and distal descending colon possibly related in part to nondistention. Stool is visible elsewhere in the colon with scattered diverticula. The appendix is visualized and appears normal. Normal abdominal aorta. Normal inferior vena cava. Normal retroperitoneum. Urinary bladder is not distended. Normal visualized uterus. There is a small umbilical hernia containing fat. Normal osseous structures. CT/Abdomen/Pelvis without Cont IMPRESSION: 1. Left lower lobe airspace consolidation with pleural effusion likely represents pneumonia. 2. Hepatomegaly and hepatic steatosis. Electronically Signed: Myrtle Gomez MD at 4:25 EST , Service support , CC: JAMES SUAREZ MD; Lisset Ford MD Biofuels Production Manager: Signed PULMONARY VISIT REPORT Observed: 08/01/2018 Status: F Source: [place] 2:23 PM [facility] [place] REPOSITORY [facility] of [address] [place] [address] OFFICE VISIT Date of Service: 08/01/18 MR#: [id number] Acct: [id number] Name: GARRY CRISTINA Rep #: [id number] : 1985 Provider: Al Prajapati MD Age/Sex: 32/F Location: [facility] Status: Signed Assessment AND Plan Problems 1. Moderate persistent asthma without complication J45.40 2. Class 3 severe obesity due to excess calories with serious comorbidity and body mass index (BMI) of 50.0 to 59.9 in adult E66.01; Z68.43 3. Seasonal allergies J30.2 4. Palpitations R00.2 Plan Unclear etiology at this time. Patient has had significant decreases in spirometry flows and lung volumes. Patient may be dealing with uncontrolled asthma at this time. Will place patient on empiric controller therapy. Patient will call back with response. We will repeat pulmonary function test in 6 months to ensure the trend does not continue. If patient has further decline in lung volumes, CAT scan may be necessary to evaluate for pulmonary fibrosis or other restrictive etiology. Patient should remain on metoprolol as this is doing well with her palpitations. Initiate Breo. Okay to continue metoprolol. Obtain complete PFT and 6 months Orders Orders: Medications New: Plan Detail Follow Up 6 Months (BWA) HPI SOB : Chief Complaint: Cough and shortness of breath Details: Patient is a 32-year-old female, currently under the care of Dr. Ford, who presents as a new patient consult from Dr. Mohan secondary to abnormal pulmonary function test. Patient reports that she was seen by cardiology secondary to mitral valve prolapse with palpitations. Patient had noted some dyspnea associated with these palpitations and would get symptoms with any tachycardia above 120 bpm. Patient has undergone an extensive cardiac workup that was unable to elicit any etiology. This did include a pulmonary function test, which is described below. Patient reports a long history of asthma, but typically uses as needed albuterol. Patient states that she will use an albuterol nebulizer during acute illness, but does not typically use a controller medication. Patient works as a respiratory therapist and had taken a pulmonary function test in October 2016 during initiation of new plethysmography unit. Repeat pulmonary function test show significant decline in lung volumes, FVC and FEV1. Patient denies any rashes, joint pains or other rheumatologic symptoms. Patient was working out 3-5 times per week, but currently states that she gets short of breath from walking from the parking lot. Patient does have a history of morbid obesity, but is currently enrolled in the why weight program here at [facility]. Patient has noted widely variable blood pressures over the last 2-3 months. Cardiology is aware. Patient reports that she recently had her metoprolol increased with significant improvement in palpitations. This has not helped her blood pressure. Patient denies any hypersomnia, snoring or trouble sleeping. Testing personally reviewed with the patient Complete PFT (07/25/2018): Grossly normal pulmonary function test, but significant reduction in flows and lung volumes compared to previous (FVC 77%, FEV1 71%, TLC 88%, DLCO 72%) Chest x-ray (07/24/2018): Normal without infiltrate Documentation reviewed 8 pages of documentation from cardiology were reviewed. Patient has had an echo showing an EF of 65%, negative bubble study, but unable to estimate pulmonary artery pressures. Patient was set up with a Holter monitor HPI Comments Details: Intake Vital Signs08/01/18 Blood Pressure 159/99 H Intake Visit Reasons: SOB Accompanied by: Self Allergies acetaminophen [From Vicodin] Adverse Reaction (Verified 08/01/18 13:14) Other azithromycin [From Zithromax] Adverse Reaction (Verified 08/01/18 13:14) Rash cortisone Adverse Reaction (Verified 08/01/18 13:14) Hives hydrocodone bitartrate [From Vicodin] Adverse Reaction (Verified 08/01/18 13:14) Other PAPER TAPE Adverse Reaction (Uncoded 08/01/18 13:14) Rash Medications Albuterol IH (ProAir) [Proair Hfa] 1 puff INHALATION Q4H PRN PRN 08/22/14 [History Confirmed 08/01/18] Omeprazole [Prilosec] 40 mg PO DAILY 08/22/14 [History Confirmed 08/01/18] Acetaminophen [Tylenol] 1,000 mg PO Q6H PRN PRN 11/22/15 [History Confirmed 08/01/18] norethindrone 1 mg-ethinyl estradiol 20 mcg (21)-iron 75 mg (7) tablet 1 tab PO DAILY 06/27/18 [History Confirmed 08/01/18] fluticasone 100 mcg-vilanterol 25 mcg/dose powder for inhalation 1 inh INHALATION Q24H #60 ea 08/01/18 [Rx Confirmed 08/01/18] metoprolol tartrate 100 mg tablet 100 mg PO BID 08/01/18 [History Confirmed 08/01/18] PFSH Medical History GERD (gastroesophageal reflux disease) (Chronic) Essential hypertension (Chronic) Hernia (Chronic) Chronic headaches (Chronic) Asthma (Chronic) Arthritis (Chronic) Seasonal allergies (Chronic) Mitral valve prolapse (Chronic) Premature ventricular contraction (Chronic) Palpitations (Chronic) Surgical History History of orthopedic surgery (Acute) History of tonsillectomy and adenoidectomy (Acute) History of wisdom tooth extraction (Acute) Family History Father Cancer Mother Hypertension Thyroid disorder Grandmother Heart disease Social History Smoking Status: Never smoker alcohol intake: current alcohol intake frequency: holidays/special occasions only substance use type: does not use what type of physical activity do you participate in: walking frequency: 3-4 times per week Review of Systems Const CONSTITUTIONAL: Positive fatigue (medication related. ), seasonal allergies and headache(s) (hormonal); negative anorexia, body ache, chills, daytime sleepiness, fever(s), night sweats, oral thrush, stops breathing during sleep, weight loss, sleeping in chair, weight loss, weight gain, frequent colds, other or orthopnea EETM Ear Nose Throat Mouth: Positive hearing normal and headache(s) (hormonal); negative hard of hearing, hoarseness, dry mouth in morning, change in vision, itchy eyes, eye pain, swallowing Difficulty, ear pain, nose bleed, mouth pain, nasal congestion, nasal discharge, post nasal drip, sinus pain, sinus pressure, sore throat or other Cardio Cardiovascular: Negative chest pain, chest pain at rest, chest pain with activity, irregular heart rhythm, edema, shortness of breath when lying down, palpitations, murmur or other Resp Respiratory: Positive as per HPI, shortness of breath shortness of breath: Positive with activity and other (and at rest ) and cough (she feels it might be medication related. ) cough: Positive non-productive; negative pain with cough, wheezing, chest congestion, chest tightness, pain on inspiration, inhalers, increase use of rescue inhalers, snoring, apnea or other Gastro Gastrointestional: Negative bloody stools, change in appetite, difficulty swallowing, reflux, hematemesis, melena stool, loose stool, constipation or other Genitourinary: Negative blood in urine, nocturia, pain with urination or other Musc Musculoskeletal: Negative body pain, back pain, neck pain or other Skin/Breast Skin/Breast: Negative dry skin, itching, rash, unusual bruising, breast lump or other Neuro Neurological: Negative restless legs, confusion, weakness or other Psych Psychocological: Negative abnormal sleep pattern, anxiety, thoughts of hurting self/others, hopelessness or other Lymph Lymphatic: Negative easy bleeding, easy bruising, swollen lymph nodes or other Exam Const Constitutional: Positive conversant, cooperative, in no acute respiratory distress, healthy appearing, well developed, well nourished, good hygiene and obese; negative appears older than stated age, smells of smoke, dyspenic or ill appearing Head Head: Positive normocephalic and atraumatic; negative cyanosis of lips/distal nose, frontal sinus tenderness or maxillary sinus tenderness Eyes Eye: Positive clear conjunctiva; negative nystagmus, scleral abnormality or cataract present Ears Ear: Positive hearing normal and external ears normal; negative hard of hearing Nose Nose: Positive external nose normal, septum normal and no nasal discharge; negative epistaxis or nasal polyp Mouth Mouth: Positive oral mucosae normal, no lesions, crowded posterior oropharynx and good dentition; negative post nasal drip, malodorous breath or oral thrush present Mallampati Score: IV: Mallampati Score Neck Neck: Positive normal visual inspection, full ROM and trachea midline; negative lymphadenopathy or JVD Chest Wall Chest: Positive normal inspection of the chest and symmetric chest movement; negative crepitus or tenderness Resp lung sounds: Positive clear to auscultation, normal expiratory time, normal respiratory effort and diminished; negative wheezes, rhonchi, rales, use of accessory muscles, wheeze present on forced exhalation or dullness to percussion Cardio Cardiac: Positive regular rate, regular rhythm, S1 normal and S2 normal; negative murmur, rub or gallop GI GI: Positive normal to inspection, normal bowel sounds and obese; negative distended, ascites or epigastric tenderness Genitourinary: Positive deferred Musc Musculoskeletal: Positive steady gait; negative using an assistive device for ambulation, kyphosis or scoliosis Skin Pulmonary Skin Exam: Positive intact; negative rash, lesion, ulcers, erythema or dermal atrophy Pulses Pulse: Yes radial pulses present Extremities Extremities: Yes capillary refill normal, No clubbing, No cyanosis, No edema Neuro Neurologic: Yes conversant, Yes no focal neuro deficits, Yes normal concentration, Yes understands questions, Yes cooperative, Yes normal cognition, Yes normal coordination Lymph Lymphatic: No lymphadenopathy Psych Appearance: Positive grossly normal Mental Status: Positive mental status grossly normal Mood: Positive congruent mood Affect: Positive normal affect Coding Level of Care Code Off vis,new,level 4 Diagnoses Moderate persistent asthma without complication J45.40 Asthma severity: moderate Asthma persistence: persistent Asthma complication type: uncomplicated Class 3 severe obesity due to excess calories with serious comorbidity and body mass index (BMI) of 50.0 to 59.9 in adult E66.01; Z68.43 Obesity type: due to excess calories Obesity classification: adult class 3 (BMI >= 40) Serious obesity comorbidity presence: with serious comorbidity Body mass index: BMI 50.0-59.9 Seasonal allergies J30.2 Palpitations R00.2 08/01/18 1423 <Electronically signed by Al Prajapati MD> Date Al Prajapati MD Cosigner Signature: Date (if applicable) CC: Lisset Ford MD; Homero Mohan MD STRESS TEST ECHO W/ Observed: 07/27/2018 Status: F Source: [place] CONTRAST 5:54 PM [facility] [place] REPOSITORY [facility] Cardiovascular Services [address] [place] [address] Stress Test Echo W/Contrast MR#: [id number] Acct: [id number] Name: GARRY CRISTINA Rep #: [id number] : 1985 32 From: Homero Mohan MD Primary Care: Lisset Ford MD Status: REG CLI Ordering Dr: Homero Mohan MD Sex: F C Reason For Study: Dyspnea/SOB, PVC's, Palpitations Stress Results Protocol: Al Protocol Maximum Predicted HR: 190 bpm Target HR: 162 bpm % Maximum Predicted HR: 91 % DurationHeart Rate Stage (mm:ss) (bpm) BP Comment Baseline 108 172/88No Chest Pain; Diluted Definity 2 ML Given Al Protocol Stage I 3:00 151 180/78No Chest Pain; Mild Dyspnea Al Protocol Stage II 2:30 173 204/80No Chest Pain; Moderate to Severe Dyspnea Recovery 121 166/70No Chest Pain Stress Duration: 5:30 mm:ss Maximum Stress HR: 173 bpm METS: 7 Baseline Echocardiogram Findings Stress Echo Wall motion Data Resting WM Intermediate WM Stress WM Resting Wall Motion Wall Motion Stress All segments Normal. All segments Hyperkinetic. Ejection Fraction 65 %. Ejection Fraction 75 %. Stress Results Heart rate response: appropriate Blood pressure response: resting hypertension - appropriate response Arrhythmias: rare PAC during recovery Functional capacity: decreased Stopped secondary to: dyspnea. EKG Data Baseline ECG: Normal Sinus Rhythm; NS T-Wave Abnormality. Exercise ECG: No Obvious ECG Changes. Symptoms with Stress No c/o chest discomfort c/w angina pectoris during exercise / recovery. Interpretation Summary Negative (Adequate) Stress Echocardiogram Comment: heart rate respone c/w a deconditioned heart rate respone Ordering Physician: Homero Mohan Referring Physician: Homero Mohan Performed By: Cady Griffin, DREW, RVT 07/27/181752 Date Homero Mohan MD CC: Lisset Ford MD; Homero Mohan MD Date Dictated: 07/27/18947 Date Transcribed: 07/27/181752 [employer]fuels Production Manager: Signed PULMONARY FUNCTION Observed: 07/25/2018 Status: F Source: [place] REPORT COMP 5:52 AM [facility] [place] REPOSITORY [facility] Pulmonary Services/Neurology [address] [place] [address] MR#: [id number] Acct: [id number] Name: GARRY CRISTINA Rep #: [id number] : 1985 32 From: Al Prajapati MD Referring Dr: Homero Mohan MD Status: REG CLI Ordering Dr: Date: Location: [facility] Sex: F C COMPLETE PULMONARY FUNCTION TEST INTERPRETATION Brief HPI: Patient is a 32 year old female, currently under the care of Dr. Mohan, who presents to [facility] for complete pulmonary function tests secondary to diagnosis of dyspnea. Respiratory therapist reports good effort and reproducible results. Interpretation: Forced expiration spirometry shows no large airways obstructive ventilatory defect with an FEV1 of 71% predicted. There is no significant bronchodilator response by strict ATS criteria. Spirograms are of good quality and plateau normally. The respiratory flow volume loop shows decreased expiratory flow rates at high lung volumes consistent with small airways obstruction. Lung volumes by body plethysmography show total lung capacity at the lower limit of normal at 4.67 L, 88% predicted. All other lung volumes are within normal limits. Diffusion capacity by carbon monoxide is slightly decreased at 72% predicted. The airway resistance is normal. Compared to previous pulmonary function tests from 11/08/2016, there has been a significant reduction in FVC, FEV1 and TLC by 14%, 14% and 11% respectively. Impression: These pulmonary function tests are grossly within normal limits, but lung volumes are at the lower limit of normal. Cannot exclude early restrictive lung disease, especially given decrease compared to previous testing. 07/25/18 0552 <Electronically signed by Al Prajapati MD> Date Al Prajapati MD CC: Al Prajapati MD; Lisset Ford MD; Homero Mohan MD Date Dictated: 07/24/181615 Date Transcribed: 07/24/181615 Biofuels Production Manager: UMANG Signed CHEST PA AND LATERAL Observed: 07/24/2018 Status: F Source: [place] 8:54 AM [facility] [place] REPOSITORY [facility] Imaging Services [address] [place] [id number] Chest PA and Lateral MR#: [id number] Acct: [id number] Name: GARRY CRISTINA Rep #: [id number] : 1985 F 32 From: Tod Ellis DO PCP: Lisset Ford MD Status: REG CLI Study: Chest PA and Lateral Date of Exam: 07/24/18 Exam# [id number] Ordering Dr: Homero Mohan MD STUDY: X-RAY CHEST REASON FOR EXAM: Female, 32 years old. Shortness of breath. Cough. TECHNIQUE: PA and lateral views of the chest. COMPARISON: November 20, 2015. FINDINGS: Mildly improved inspiratory effort RIBS prior study. There is no infiltrate or mass. There is no demonstrated pleural abnormality. Normal size heart. Normal mediastinum and talat. Normal visualized pulmonary arteries. Normal visualized aortic arch and descending thoracic aorta. Normal visualized thoracic spine. Normal visualized ribs, clavicles, and shoulders. There is no demonstrated abnormality of the visualized soft tissue structures of the upper abdomen. RAD/Chest PA and Lateral IMPRESSION: No acute cardiopulmonary disease. Electronically Signed: Tod EllisDO at 22:21 EST Tel [phone], Service support , CC: Lisset Ford MD; Homero Mohan MD Biofuels Production Manager: Signed CARDIOLOGY VISIT Observed: 07/12/2018 Status: F Source: [place] REPORT 11:46 AM [facility] REPOSITORY [facility] [address] [place] [address]. [address] [place] [address] OFFICE VISIT Date of Service: 07/12/18 MR#: [id number] Acct: [id number] Name: GARRY CRISTINA Rep #: [id number] : 1985 Provider: Homero Mohan MD Age/Sex: 32/F Location: [facility] Status: Signed HPI HPI Details: GARRY CRISTINA, is a 32 F who presents to the office today for outpatient cardiovascular consultation. She had previously been evaluated by the [facility] with her last outpatient cardiovascular visit appearing to been on 12/09/2011. At that time she had been evaluated for concerns of underlying palpitations, chest discomfort/dyspnea, mitral valve prolapse, hypertension, and possible hyperlipidemia. She had undergone noninvasive evaluation which appears to have included ambulatory monitoring, echocardiograms, and a stress echocardiogram. It appears that she was found to have evidence of underlying cardiac ectopy but had symptoms correlating with sinus rhythm and/or sinus tachycardia as opposed to ectopy, overall preserved LV systolic function, mild mitral valve prolapse, no stress-induced myocardial ischemia by ECG or echocardiogram images, and no obvious underlying renal artery stenosis by renal duplex study or catecholamine-induced issues by 24-hour urine for VMA/metanephrines, etc. She was treated medically with beta-blockers. Over time she states she has noticed increased palpitations . She states this occurs at rest but predominantly with activity. She has been concerned of progressive ectopy or dysrhythmias as well as changes with her underlying cardiovascular anatomy/function, etc. She also has concerns of progressive shortness of breath and dyspnea. Again this is more with activity. She has denied orthopnea, PND, or peripheral pitting edema. There is been no near syncope or syncope. She has undergone evaluation. On 06/28/2018 she had a transthoracic echocardiogram performed. There was a technically diminished quality study. Contrast was used. The left ventricle was thought to be normal with an LVEF of 65% with trivial MR and trivial TR. She was thought to have normal diastolic G for age. An agitated saline contrast study was negative. She also had a 24-hour Holter monitor. She had sinus rhythm. She had rare PACs. There was one atrial couplet reported. She had no narrow runs. She had no ventricular ectopy or wide-complex runs. Her symptoms appear to correlate with sinus rhythm to sinus tachycardia predominantly and only 1 with an isolated PAC. She did have a follow-up ECG today. She was noted to be in sinus rhythm with no acute ECG changes. She also states she has now joined the [facility] weight program. She is due to start that in July of this year. Intake Vital Signs07/12/18 Body Mass Index (BMI) 54.3 07/12/18 Height 5 ft 5.5 in 07/12/18 Weight: 335 lb 07/12/18 Body Mass Index (BMI) 54.8 07/12/18 Blood Pressure 138/78 H Intake Visit Reasons: SOB, LAST SAW AWN 2011 Allergies acetaminophen [From Vicodin] Adverse Reaction (Verified 07/12/18 10:23) Other azithromycin [From Zithromax] Adverse Reaction (Verified 07/12/18 10:23) Rash cortisone Adverse Reaction (Verified 07/12/18 10:23) Hives hydrocodone bitartrate [From Vicodin] Adverse Reaction (Verified 07/12/18 10:23) Other PAPER TAPE Adverse Reaction (Uncoded 07/12/18 10:23) Rash Medications Albuterol IH (ProAir) [Proair Hfa] 1 puff INHALATION Q4H PRN PRN 08/22/14 [History Confirmed 07/12/18] Omeprazole [Prilosec] 40 mg PO DAILY 08/22/14 [History Confirmed 07/12/18] Acetaminophen [Tylenol] 1,000 mg PO Q6H PRN PRN 11/22/15 [History Confirmed 07/12/18] metoprolol succinate ER 50 mg tablet,extended release 24 hr 100 mg PO BID tab 06/27/18 [History Confirmed 07/12/18] norethindrone 1 mg-ethinyl estradiol 20 mcg (21)-iron 75 mg (7) tablet 1 tab PO DAILY 06/27/18 [History Confirmed 07/12/18] [facility] Medical History GERD (gastroesophageal reflux disease) (Chronic) Essential hypertension (Chronic) Hernia (Chronic) Chronic headaches (Chronic) Asthma (Chronic) Arthritis (Chronic) Seasonal allergies (Chronic) Mitral valve prolapse (Chronic) Premature ventricular contraction (Chronic) Palpitations (Chronic) Surgical History History of orthopedic surgery (Acute) History of tonsillectomy and adenoidectomy (Acute) History of wisdom tooth extraction (Acute) Family History Father Cancer Mother Hypertension Thyroid disorder Grandmother Heart disease Social History Smoking Status: Never smoker alcohol intake: current alcohol intake frequency: holidays/special occasions only substance use type: does not use what type of physical activity do you participate in: walking frequency: 3-4 times per week ROS Const Const: Positive for headache(s) (HX mirgaines, experiencing ESPARZA x1 week); negative for fatigue, weakness, weight gain, weight loss, frequent falls or excessive sweating Eyes Eyes: Negative for change in vision, blurry vision or transient loss of vision ENT ENT: Positive for dizziness (w/migraine ESPARZA) and headache(s) (HX mirgaines, experiencing ESPARZA x1 week); negative for balance problems Cardio Chest Pain: No Palpitations: Yes (better since increase metoprolol; occasional SOB) feels like its: fast, skipping, pounding Edema: None Muscle aches with walking: None Additional Details: Patient reports that BP's have been fluctuating high/low Resp Respiratory: Positive for SOB with activity (increased with elevated HR), SOB at rest (occasional, HX asthma; doesnt feel like asthma) and wheezing (occasional wheezing) GI GI: Negative vomiting or vomiting blood/hematemesis : Negative for hematuria Musc Musc: Negative for balance problems, muscle aches/ myalgia, muscle weakness or joint pain Skin Skin: Negative non-healing lesions or rash Neuro Neuro: Positive for dizziness (w/migraine ESPARZA), lightheadedness (w/migraine ESPARZA) and headache(s) (HX mirgaines, experiencing ESPARZA x1 week); negative for weakness, blurry vision, frequent falls or orthostatic symptoms Edson Hematologic/Lymphatic: Negative for easy bleeding Endo Endo: Negative for fatigue or excessive sweating Psych Psych: Negative for anxiety or depression Allergy Allergy/Immunology: Negative for hives, Negative for rash Cardiology Exam Const Appearance: cooperative, healthy appearing, comfortable, no acute distress, well developed and well groomed Nutritional Appearance: obese Orientation: alert, awake and oriented x3 Head Head: normal to inspection, normocephalic and atraumatic Ears: hearing grossly normal bilaterally Nose: external nose normal Mouth: oral mucosae normal Teeth and gingiva: dentition normal Eyes Eyelids: eyelids normal Conjunctivae: conjunctivae normal Pupils: PERRL EOM: EOM intact bilaterally Neck Neck: normal visual inspection and full ROM Carotids: normal carotid upstroke Chest Chest inspection: normal inspection of the chest, symmetric chest movement and normal respiratory effort Auscultation: Bilateral: Clear to Auscultation Cardio Palpation: normal PMI Rate: regular rate Rhythm: regular rhythm Heart sounds: S1 normal and S2 normal GI GI: obese, normal to inspection, bowel sounds present and soft Neuro General: alert, awake, oriented x3, moves all extremities, no focal sensory deficit and no focal motor deficits Skin Skin: no rashes or lesions noted Extremities Pulses: Normal: Right Radial Pulse, Left Radial Pulse Lower Extremity Edema: None: Bilateral Psych Psychological: normal affect Supplemental Info Transthoracic echocardiogram: 06/28/2018 Interpretation Summary The study was technically difficult. Contrast injection was performed. Left ventricular systolic function is normal. The estimated ejection fraction is 65 %. Trivial mitral valve insufficiency. Trivial tricuspid valve insufficiency. Unable to estimate RV systolic pressure/pulmonary artery pressure due to technically difficult study. Normal diastology for age. Bubble contrast study negative for right to left interatrial shunt. Assessment AND Plan 1. Palpitations R00.2 Plan At the present time she continues with her palpitations. Again there is concern, as is in the past, it appears that she may be more aware, as previously commented regarding cardiac awareness, of her underlying elevated heart rate with respect to sinus tachycardia and being symptomatic with her underlying PACs. At the present time she has increased her beta-kalina dose as her PCP requested. She states it has helped. She will continue her current medical therapy. She will undergo further evaluation from a cardiovascular status based upon her symptoms as noted below. Orders Orders: 2. PAC (premature atrial contraction) I49.1 Plan She does have PACs. Again it appears her symptoms were more related to sinus tachycardia than her underlying ectopy. She will continue her beta-kalina therapy in the interim. Orders Orders: 3. Premature ventricular beat I49.3 Plan She has had a history of PVCs. Her recent Holter monitor did not demonstrate any ventricular ectopy. Her overall LV systolic function appears to remain stable. She will continue her current medical management. Orders Orders: 4. Mitral valve prolapse I34.1 Plan She has a history of mitral valve prolapse. Her recent echocardiogram did not demonstrate obvious mitral valve prolapse. It is unclear whether her symptoms are related to a mitral valve prolapse syndrome. At the present time she will continue her beta-kalina therapy. 5. Essential hypertension I10 Plan She notes her blood pressure is very up and down. At the moment she is going to enroll in a weight loss program which will help with her blood pressure control. She will also continue her current beta- kalina therapy. However if her blood pressures demonstrate a continuous upward trend then she may need additional medical management. 6. Obesity E66.9 Plan Again she is going to enroll in the [facility] weight loss program. Hopefully if she is able to lose weight this will improve her symptoms, may diminish her sinus tachycardia, and assist with her blood pressure. 7. Shortness of breath R06.02 Plan The etiology of her shortness of breath may be multifactorial. This may be related to a combination of issues including her pulmonary history of asthma as well as unfortunately her body habitus/obesity. However based upon her ongoing symptoms and concerned she will be reevaluated from a cardiopulmonary status. This will include an exercise tolerance test imaging study such as a stress echocardiogram to compared to her study from before to look for any other obvious changes that would indicate further cardiovascular related concerns. It will also include a chest x-ray and a set of PFTs which she does not believe she has ever had done. She may eventually need pulmonology consultation to assist with her concerns of shortness of breath/dyspnea. In the interim she will again proceed with her weight loss program. Orders Orders: Plan Detail Additional Comments Thank you for allowing me to participate in the care of your patient. Please don't hesitate to call if any issues arise. This note was generated using a voice recognition system and there may be incorrect words, spelling or punctuation that were not noted when reviewing the office note prior to saving. Follow Up 6 Weeks (with PFM) Coding Level of Care Code Off vis,new,level 4 Diagnoses Palpitations R00.2 PAC (premature atrial contraction) I49.1 Premature ventricular beat I49.3 Mitral valve prolapse I34.1 Essential hypertension I10 Obesity E66.9 Shortness of breath R06.02 Coding Level of Care Code Off vis,new,level 4 Diagnoses Palpitations R00.2 PAC (premature atrial contraction) I49.1 Premature ventricular beat I49.3 Mitral valve prolapse I34.1 Essential hypertension I10 Obesity E66.9 Shortness of breath R06.02 07/12/18 1146 <Electronically signed by Homero Mohan MD> Date Homero Mohan MD Cosigner Signature: Date (if applicable) CC: Kenyon Light MD 12 LEAD EKG PERFORMED Observed: 07/12/2018 Status: F Source: NII BY [facility] 10:20 AM [facility] [place] REPOSITORY [facility] [address] [place] [address] 12 Lead EKG performed by [facility] 07/12/18 1019 MR#: [id number] Acct: [id number] Name: GARRY CRISTINA Rep #: [id number] : 1985 32 From: Homero Mohan MD Attending Dr: Homero Mohan MD Status: DEP AMB Ordering Dr: Homero Mohan MD Date: 07/12/18 Location: [facility] Sex: F C Admitted: [facility]/12 Lead EKG performed by [facility] ECG Report Interpretation Sinus Rhythm Electronically signed on 07/12/2018 at 11:53 by Homero Mohan Software Version [id number] 07/12/18 1154 Date Homero Mohan MD CC: Kenyon Light MD Date Dictated: 07/12/18 1019 Date Transcribed: 07/12/18 101 Biofuels Production Manager: PM Signed INTERNAL MEDICINE Observed: 07/02/2018 Status: F Source: [place] OFFICE VISIT 1:37 PM [facility] Internal Medicine [facility] [place] [address] [place] [address] OFFICE VISIT Date of Service: 06/27/18 MR#: [id number] Acct: [id number] Name: GARRY CRISTINA Rep #: [id number] : 1985 Provider: Lisset Ford MD Age/Sex: 32/F Location: [facility] Status: Signed Intake Vital Signs06/27/18 Height 5 ft 5.5 in 06/27/18 Weight: 332 lb 06/27/18 Body Mass Index (BMI) 54.3 06/27/18 Blood Pressure 163/102 H Intake Visit Reasons: EST CARE Chief Complaint: Est Care - Prob with Mitral Valve Is patient in pain?: No Allergies acetaminophen [From Vicodin] Adverse Reaction (Verified 06/27/18 15:39) Other azithromycin [From Zithromax] Adverse Reaction (Verified 06/27/18 15:39) Rash cortisone Adverse Reaction (Verified 06/27/18 15:39) Hives hydrocodone bitartrate [From Vicodin] Adverse Reaction (Verified 06/27/18 15:39) Other PAPER TAPE Adverse Reaction (Uncoded 06/27/18 15:39) Rash Medications Albuterol IH (ProAir) [Proair Hfa] 1 puff INHALATION Q4H PRN PRN 08/22/14 [History Confirmed 06/27/18] Omeprazole [Prilosec] 40 mg PO DAILY 08/22/14 [History Confirmed 06/27/18] Acetaminophen [Tylenol] 1,000 mg PO Q6H PRN PRN 11/22/15 [History Confirmed 06/27/18] metoprolol succinate ER 50 mg tablet,extended release 24 hr 100 mg PO BID tab 06/27/18 [History Confirmed 06/27/18] norethindrone 1 mg-ethinyl estradiol 20 mcg (21)-iron 75 mg (7) tablet 1 tab PO DAILY 06/27/18 [History Confirmed 06/27/18] Nurse's Note: Has an appt with Jigsaw Operator. Needs a Referral on 07/12/18 [facility] Medical History Hernia (Chronic) Chronic headaches (Chronic) Asthma (Chronic) Arthritis (Chronic) Seasonal allergies (Chronic) Mitral valve prolapse (Chronic) Premature ventricular contraction (Chronic) Palpitations (Chronic) Surgical History History of orthopedic surgery (Acute) History of tonsillectomy and adenoidectomy (Acute) History of wisdom tooth extraction (Acute) Family History Father Cancer Mother Hypertension Thyroid disorder Grandmother Heart disease Social History Smoking Status: Never smoker alcohol intake: current alcohol intake frequency: holidays/special occasions only substance use type: does not use what type of physical activity do you participate in: walking frequency: 3-4 times per week HPI HPI Chief Complaint: Est Care - Prob with Mitral Valve Details: GARRY CRISTINA, is a 32yo F who presents to the office today to establish care. She is however concerned about worsening SOB which has been on going for at least 8 months. She denies any known precipitating factors. SOB is said to be predominantly with activity and this is said to have impacted her daily activities. She is scheduled to follow up with a Jigsaw Operator soon and a Holter, ECHO and EKG have been ordered. She has a chronic history of hypertension with elevated blood pressure noted during this visit. She has been on Metoprolol which was recently adjusted for better Bp control. ROS Const Constitutional: No chills, fatigue, fever(s), frequent falls, malaise, weakness, sleep problems or change in appetite Eyes Eyes: No blurry vision, change in vision, double vision, discharge or visual disturbances ENT ENT: No abnormal hearing, ear pain, ear pressure, tinnitus or dizziness/vertigo Resp Respiratory: No cough, shortness of breath or wheezing Cardio Cardiology: Positive for shortness of breath, dyspnea on exertion, lightheadedness and palpitations; no chest pain at rest, chest pain with exertion, generalized swelling, irregular heart rhythm, orthopnea or fast heart rate Gastro GI: No abdominal pain, change in bowel habits, constipation, diarrhea, nausea/dyspepsia or vomiting Genitourinary-Female: No difficulty urinating, burning urination, painful urination, urinary incontinence, urinary frequency, urinary urgency, urinary hesitancy, urinary retention, Frequent nighttime urination/ nocturia, sexual problems, genital lesions, abnormal vaginal bleeding, pelvic pain, vaginal dryness, vaginal odor or Vaginal Itching Musc Musculoskeletal: No joint pain, back pain, joint swelling, limited range of motion, numbness or tingling Skin Skin: No change in skin color, itching, rash or wounds Breast Breast: No breast lump or breast pain Neuro Neurology: No frequent falls, weakness, visual disturbances, abnormal hearing, numbness, tingling, unsteady gait/balance, dizziness, loss of vision or memory loss Psych Psychiatric: No change in appetite, No memory loss, No anxiety, No depression, No Thoughts of harming yourself/Others Endo Endocrine: No fatigue, heat intolerance, increased thirst/drinking, increased hunger or increased urination Aller/Imm Allergy/Immunologic: No wheezing, itchy eyes or seasonal allergy symptoms Edson/Lymp Hematologic/Lymphatic: No easy bleeding, easy bruising or enlarged lymph nodes Exam Const General: cooperative, no acute distress Orientation: awake, oriented x3, alert [facility] Head: atraumatic, normocephalic Resp Effort AND Inspection: normal respiratory effort, able to speak in complete sentences Auscultation: Bilateral: Clear to Auscultation Cardio Rate: regular rate Rhythm: regular rhythm Heart Sounds: S1 normal, S2 normal GI Inspection: obesity Palpation: soft, no hepatosplenomegaly Neuro General: alert, awake, oriented x3, CN's II-XI intact bilaterally, moves all extremities Extrem General: pedal edema bilaterally Psych Appearance: grossly normal Mental Status: mental status grossly normal Mood: congruent mood Affect: normal affect Assessment AND Plan 1. Shortness of breath R06.02 Plan With activity and occasionally at rest. Said to have been worsening over the last 8 months. Some episodes of palpitations however, no significant chest pain. Work up is underway with cardiology. Other likely possibilities include restrictive lung disease due to Morbid Obesity. Will await Cardiology workup. Orders Referrals: 2. Hypertension I10 Plan Chronic. Elevated during this visit. Per Patient, her medications were recently adjusted by cardiology. Scheduled to follow up soon for further management. Life style and dietary modifications discussed. Will follow. 3. Obesity E66.9 Plan Morbid. BMI of 54.4. Weight loss will definitely help with her current symptoms. Life style and dietary modifications discussed. Referred to the [facility] weight program. Orders Referrals: Plan Detail Other Orders Referrals: Coding Level of Care Code Off vis,new,level 3 Diagnoses Shortness of breath R06.02 Hypertension I10 Obesity E66.9 07/02/18 1337 <Electronically signed by Lisset Ford MD> Date Lisset Ford MD Cosigner Signature: Date (if applicable) CC: ECHO, COMPLETE W/ Observed: 06/28/2018 Status: F Source: [place] CONTRAST 8:28 PM [facility] REPOSITORY [facility] Cardiovascular Services [address] [place] [address] Echo Complete W/ Contrast 06/28/18 0755 MR#: [id number] Acct: [id number] Name: GARRY CRISTINA Rep #: [id number] : 1985 32 From: Homero Mohan MD Attending Dr: Homero Mohan MD Status: REG CLI Ordering Dr: Homero Mohan MD Date: 06/28/18 Location: [facility] Sex: F C Admitted: Reason For Study: Palpitations Procedure This was a 2D Doppler, Color Flow transthoracic echocardiogram. The study was technically difficult. Contrast injection was performed. Exam performed in department. Left Ventricle Normal LV size. Left ventricular systolic function is normal. The estimated ejection fraction is 65 %. Normal diastology for age. No regional wall motion abnormalities noted. Right Ventricle Normal RV size. Normal systolic function. Atria Normal left atrium. Normal right atrium. No doppler evidence for ASD. Bubble contrast study negative for right to left interatrial shunt. Mitral Valve There is no mitral annular calcification. Normal mitral valve. Trivial mitral valve insufficiency. Tricuspid Valve Normal tricuspid valve. Trivial tricuspid valve insufficiency. Unable to estimate RV systolic pressure/pulmonary artery pressure due to technically difficult study. Aortic Valve The aortic valve is not well visualized. Pulmonic Valve The pulmonic valve is not well visualized. Great Vessels lThe aortic root is not well visualized. Pericardium/Pleural No pericardial effusion. Medication 22 gauge I.V. with prn adaptor inserted into left arm. Performed a rapid injection of agitated mix of 9 cc saline and 1cc air to assess for atrial septal defect. Diluted definity 4ml given slow IV push to enhance endocardial definition. MMode/2D Measurements AND Calculations LVIDd: 4.8 cm IVSd: 1.0 cm LA dimension: 3.7 cm LVIDs: 3.6 cm LVPWd: 1.4 cm RVDd: 4.3 cm FS: 25.1 % LAV(MOD-bp): 65.3 ml LVAd ap4: 37.5 cm2 SV(MOD-sp4): 75.8 ml LAV(MOD-bp) Indexed: 26.6 ml/m2 EDV(MOD-sp4): 129.8 ml LAV(MOD-sp2): 61.4 ml EDV(sp4-el): 133.4 ml LAV(MOD-sp4): 57.7 ml LVAs ap4: 21.5 cm2 ESV(MOD-sp4): 54.1 ml ESV(sp4-el): 55.8 ml EF(MOD-sp4): 58.4 % EF(sp4-el): 58.1 % SV(sp4-el): 77.6 ml LA A4 area: 20.1 cm2 RA A4 area: 9.9 cm2 Time Measurements MV dec time: 0.15 sec Doppler Measurements AND Calculations MV E max kaleb: 112.7 cm/sec Lat Peak E' Kaleb: 15.9 cm/sec Med Peak E' Kaleb: 11.6 cm/sec MV A max kaleb: 51.8 cm/sec E/E' lat: 7.1 E/E' med: 9.7 MV E/A: 2.2 Ao V2 max: 158.9 cm/sec LV V1 max: 130.2 cm/sec PA V2 max: 99.2 cm/sec Ao max P.1 mmHg LV V1 max P.8 mmHg Ao V2 mean: 109.6 cm/sec LV V1 mean P.2 mmHg Ao mean P.4 mmHg LV V1 mean: 81.6 cm/sec Ao V2 VTI: 31.2 cm LV V1 VTI: 27.8 cm Interpretation Summary The study was technically difficult. Contrast injection was performed. Left ventricular systolic function is normal. The estimated ejection fraction is 65 %. Trivial mitral valve insufficiency. Trivial tricuspid valve insufficiency. Unable to estimate RV systolic pressure/pulmonary artery pressure due to technically difficult study. Normal diastology for age. Bubble contrast study negative for right to left interatrial shunt. Ordering Physician: Homero Mohan Performed By: Refugio Flores RCS 06/28/182026 Date Homero Mohan MD CC: Lisset Ford MD; Homero Mohan MD Date Dictated: 06/28/18754 Date Transcribed: 06/28/182026 Biofuels Production Manager: Signed FOOT MIN 3 VIEWS Observed: 06/13/2018 Status: F Source: [place] 1:20 PM [facility] REPOSITORY [facility] Imaging Services [address] [place] [address] Foot min 3 Views MR#: [id number] Acct: [id number] Name: GARRY CRISTINA Rep #: [id number] : 1985 F 32 From: Marvin Boudreaux DO PCP: Kenyon Light MD Status: REG CLI Study: Foot min 3 Views Date of Exam: 06/13/18 Exam# [id number] Ordering Dr: Kenyon Light MD STUDY: X-RAY - LEFT FOOT CLINICAL: Female, 32 years old. Left foot pain, predominantly in the heel TECHNIQUE: 3 view(s) of the foot. COMPARISON: None. FINDINGS: No acute fracture or dislocation. Prominent accessory ossicle or unhealed fracture at the base of the fifth metatarsal. No significant plantar spur. Normal soft tissues. RAD/Foot min 3 Views IMPRESSION: No acute findings. No significant plantar spur. Remainder as above Electronically Signed: Marvin Boudreaux DO at 12:10 EDT Tel , Service support , CC: Kenyon Light MD Biofuels Production Manager: Signed PROGRESS Observed: 04/20/2018 Status: COMPLETED Source: [place] 9:37 AM [facility] REPOSITORY HNO ID: [id number] Author: Minnie (Kari) Aleksandra Service: (none) Author Type: Nurse Practitioner Type: Progress Notes Filed: 04/20/2018 10:34 AM Note Text: Pt is a 32 year old year old female here for follow up 3 months after starting 09/02. Has forgotten a pill occasionally. Would like to continue use. Has taken own BP several times at work - all normal. Side effects: none Blood pressure 110/70, weight (!) 340 lb 12.8 oz (154.6 kg), last menstrual period 02/23/2018. GENERAL: pleasant, female in no apparent distress CHEST: Normal inspiratory effort NEURO: alert and oriented x3,exam grossly non-focal A/P. - Oral contraceptive check-up. Pt is doing well. F/up in 9 months for annual. ASSESSMENT/PLAN: 1. Surveillance for control, oral contraceptives - ICD9: V25.41, ICD10: Z30.41 - discussed with patient on how to take OCP's. - counseled on benefits, risks and possible severe side effects of OCP's. - discussed need to use Condoms to help to prevent STD's including HIV etc. - advised to continue to check BP periodically and notify office if abnormal Follow-up as needed. Minnie Polo APRN.TOUR OPERATOR CNOV Observed: 04/20/2018 Status: COMPLETED Source: [place] 9:30 AM [facility] REPOSITORY Office Visit (WOOB) GARRY CRISTINA ([id number]) 1985 F Date Time Provider Department 04/20/18 9:30 AM MINNIE POLO ([facility]) WOOB During your visit today, we recorded the following information about you: Blood pressure Weight Last Period 110/70 154.6 kg 02/23/18 Minnie Polo APRN.CNP 04/20/2018 10:34 AM Signed Pt is a 32 year old year old female here for follow up 3 months after starting 09/02. Has forgotten a pill occasionally. Would like to continue use. Has taken own BP several times at work - all normal. Side effects: none Blood pressure 110/70, weight (!) 340 lb 12.8 oz (154.6 kg), last menstrual period 02/23/2018. GENERAL: pleasant, female in no apparent distress CHEST: Normal inspiratory effort NEURO: alert and oriented x3,exam grossly non-focal A/P. - Oral contraceptive check-up. Pt is doing well. F/up in 9 months for annual. ASSESSMENT/PLAN: 1. Surveillance for control, oral contraceptives - ICD9: V25.41, ICD10: Z30.41 - discussed with patient on how to take OCP's. - counseled on benefits, risks and possible severe side effects of OCP's. - discussed need to use Condoms to help to prevent STD's including HIV etc. - advised to continue to check BP periodically and notify office if abnormal Follow-up as needed. Minnie Polo APRN.CNP Referring Provider: MINNIE POLO ([facility]) [[id number]] Allergies As of Date: 04/20/2018 Noted Allergy Reaction CINNAMON 10/04/2011 12 - Shortness of Breath CORTISONE ACETATE 01/14/2017 14 - Other: See Comments AZITHROMYCIN 01/31/2018 4 - Hives SEASONAL ALLERGIES 01/13/2015 5 - Intolerance Comments: Seasonal Allergies VICODIN (HYDROCODONE-ACETAMINOPHE*01/31/2018 4 - Hives Date Reviewed: 04/20/2018 Reviewed by: Minnie ([facility]) Aleksandra - Fully Assessed Reason for Visit: Contraception [26] Primary Visit Diagnosis:Surveillance for control, oral contraceptives [Z30.41] Prescriptions as of 04/20/2018 Sig: NORETHINDRONE 1 MG-ETHINYL ES* Take 1 tablet by mouth once d* * METOPROLOL SUCC 50 MG-HYDROCH* Take 1 tablet by mouth twice * ALBUTEROL SULFATE HFA 90 MCG/* Inhale 2 Puffs as instructed * * OMEPRAZOLE 40 MG CAPSULE,LUISA* Take 40 mg by mouth once dotty* HYDROCORTISONE 2.5 % TOPICAL * Apply 1 application to affect* Patient not taking: Reported on 01/31/2018 Problem List As Of Date 04/20/2018 Noted Resolved Palpitations [R00.2] INVALID FOR* Hypertension [I10] INVALID FOR* Headache [R51] INVALID FOR* Asthma [J45.909] INVALID FOR* Encounter Status:Closed by MINNIE POLO on 04/20/18 MAGNESIUM Collected: 04/17/2018 Status: F Source: [place] 10:21 AM [facility] REPOSITORY Order Comment: Has Patient had X-rays with Contrast this admission? N Is Patient on Heparin? N TYPE CODE TESTS RESULT OUT OF RANGE REFERENCE UNITS LAB L501.5200 1.6-2.6 mg/dL Normal MG 2.1 Performed By: #### L501.5200, L501.9520, L506.0400 #### [facility] [address]. [place], [place], [address] THYROID STIM HORMONE Collected: 04/17/2018 Status: F Source: [place] ([place]) 10:21 AM [facility] REPOSITORY Order Comment: Has Patient had X-rays with Contrast this admission? N Is Patient on Heparin? N TYPE CODE TESTS RESULT OUT OF RANGE REFERENCE UNITS LAB L501.9520 0.358-3.74 uIU/mL Normal TSH 1.52 Performed By: #### L501.5200, L501.9520, L506.0400 #### [facility] [address] [place], [address] T4 FREE DIRECT Collected: 04/17/2018 Status: F Source: [place] 10:21 AM [facility] REPOSITORY Order Comment: Has Patient had X-rays with Contrast this admission? N Is Patient on Heparin? N TYPE CODE TESTS RESULT OUT OF RANGE REFERENCE UNITS LAB L506.0400 0.76-1.46 ng/dL Normal T4 FREE 0.85 DIRECT Performed By: #### L501.5200, L501.9520, L506.0400 #### [facility] [address] [place] [address]. [place], [place], [id number] URINALYSIS, EMPLOYEE Collected: 04/17/2018 Status: F Source: [place] 10:20 AM [facility] REPOSITORY TYPE CODE TESTS RESULT OUT OF RANGE REFERENCE UNITS LAB L400.3000 Yellow COLOR Normal Yellow LAB L400.3050 Clear Normal CLARITY Clear LAB L400.3200 Normal mg/dl Normal GLUCOSE, UR Normal LAB L400.3300 Negative mg/dL Normal BILIRUBIN URINE Negative LAB L400.3400 Negative mg/dl Normal KETONE UR Negative LAB L400.3465 1.002-1.030 Normal SP.GR. DIPSTX 1.015 LAB L400.3550 5.0 - 8.0 pH UR Normal 6.5 LAB L400.3600 Negative mg/dl PROT Normal DIPSTX Negative LAB L400.3700 Normal mg/dl Normal UROBILI Normal LAB L400.3750 Negative Normal NITRITE UR Negative LAB L400.3780 Negative /ul Normal OCCULT BLOOD-UR Negative LAB L400.3800 Negative /ul LEUK Normal ESTERASE Negative Performed By: #### L400.0100 #### [facility] [address] [place] [address]. [place], [place], [address] CBC, EMPLOYEE Collected: 04/17/2018 Status: F Source: [place] 10:20 AM [facility] REPOSITORY TYPE CODE TESTS RESULT OUT OF RANGE REFERENCE UNITS LAB L100.1000 4.4-11.0 K/mm3 High WBC 12.6 LAB L100.1200 4.2-5.4 M/mm3 Normal RBC 4.35 LAB L100.1300 12.0-15.0 g/dl Low HGB 11.1 LAB L100.1400 37-47 % Low HCT 36.2 LAB L100.1500 81-99 fL Normal MCV 83.2 LAB L100.1600 27.0-32.0 pg Low MCH 25.5 LAB L100.1700 32-36 g/gl Low MCHC 30.7 LAB L100.1810 11.6-14.6 % High RDW CV 15.0 LAB L100.1820 35.1-43.9 fl High RDW SD 46.1 LAB L100.1900 150-450 K/mm3 Normal PLT 351 LAB L100.2000 6.2-12.0 fl Normal MPV 10.7 LAB L100.2110 47-70 % Normal NEUT% 61.0 LAB L100.2210 19-41 % Normal LY% 31.7 LAB L100.2310 0-10 % Normal MONO% 3.7 LAB L100.2410 0-5 % Normal EO% 3.0 LAB L100.2510 0-1 % Normal BASO% 0.2 LAB L100.2620 2.0-7.7 X10 3/uL Normal Absolute Neut 7.7 LAB L100.2720 0.83-4.51 X10 3/ul Normal Absolute Lymph 4.00 Performed By: #### L100.0200 #### [facility] [address] [place], [place], [id number] NICOTINE URINE DRUG Collected: 04/17/2018 Status: F Source: [place] SCREEN 10:20 AM [facility] REPOSITORY TYPE CODE TESTS RESULT OUT OF RANGE REFERENCE UNITS LAB L505.6250 TO BE Normal CONFIRMED Result Comment: CONFIRMATORY TESTING FOR ALL POSITIVE URINE DRUG SCREEN RESULTS WILL ONLY BE SENT OUT UPON PHYSICIAN ORDER. The results of Urine Drug Screen methods provide only preliminary analytical test results. A more specific alternate chemical method must be used in order to obtain a confirmed analytical result. Gas chromatography/mass spectrometery (GC/MS) is the preferred confirmatory method. Clinical consideration and professional judgement should be applied to any drug of abuse test result, particularly when preliminary positive results are used. LAB L505.6270 <200 ng/mL Normal COT DRG Negative SCREEN Result Comment: Cotinine is the first-stage metabolite of Nicotine. Performed By: #### L505.6240 #### [facility] [address] [place], [place], [id number] EMPLOYEE PROFILE Collected: 04/17/2018 Status: F Source: [place] 10:20 AM [facility] REPOSITORY TYPE CODE TESTS RESULT OUT OF RANGE REFERENCE UNITS LAB L501.0100 74-106 mg/dL Normal GLU 101 Result Comment: Fasting Glucose result from 100 to 125 mg/dL suggests IMPAIRED HOMEOSTASIS per A.D.A. criteria. Please note revised GLUCOSE reference range effective 2017. LAB L501.1000 7-18 mg/dL Normal BUN 12 LAB L501.1100 0.55-1.02 mg/dL Normal CREAT,SERUM 0.72 Result Comment: The validity of the calculated GFR AND GFRAA in patients over 70 years has not been determined. Clinical correlation is essential. LAB L501.1110 >60 mL/min Normal EST GFR 101 Result Comment: Non- GFR Calc LAB L501.1115 >60 mL/min Normal EST GFR - AA 122 Result Comment: GFR Calc LAB L501.1300 10-20 RATIO Normal BUN/CRE 16.6 LAB L501.1400 2.6-6.0 mg/dL Normal URIC 3.9 Result Comment: The drugs N-Acetylcysteine and Metamizole may falsely depress this assay. LAB L501.1500 6.4-8.2 g/dL Normal T PROT 7.7 LAB L501.1800 3.2-5.0 g/dL Low ALB 3.1 LAB L501.1950 2.2-4.2 g/dL High GLOB 4.6 LAB L501.2000 0.9-2.4 RATIO Low A/G 0.7 LAB L501.2200 8.5-10.1 mg/dL Normal CA 8.5 LAB L501.2300 2.5-4.9 mg/dL Normal PHOS 2.9 LAB L501.4100 15-37 U/L Low AST 13 LAB L501.4305 45-117 U/L Normal ALK P 53 LAB L501.4405 13-56 U/L Normal ALT 14 LAB L501.4600 0.20-1.00 mg/dL Normal T BILI 0.20 LAB L501.4700 0.00-0.30 mg/dL Normal D BILI 0.07 LAB L501.4900 200 mg/dL Normal CHOL 187 Result Comment: <200 mg/dL Desirable 200-240 mg/dL Borderline >240 mg/dL High Risk LAB L501.5000 mg/dL High TRIG 205 Result Comment: The drugs N-Acetylcysteine and Metamizole may falsely depress this assay. Serum Triglycerides Reference Interval Normal <150 mg/dL Borderline high 150 - 199 mg/dL High 200 - 499 mg/dL Very High > or = 500 mg/dL LAB L501.5300 136-145 mmol/L Normal NA 138 LAB L501.5600 3.5-5.1 mmol/L Normal K 3.8 LAB L501.5900 98-107 mmol/L Normal CL 105 LAB L501.6100 21.0-32.0 mmol/L Normal CO2 24.0 LAB L501.6200 5-15 Normal 9 GAP LAB L501.6400 mg/dL Normal HDL 40 Result Comment: The drugs N-Acetylcysteine and Metamizole may falsely depress this assay. Reference Range HDL <40 mg/dL Low HDL Cholesterol HDL >or= 60 mg/dL High HDL Cholesterol LAB L501.6475 Normal CHOL:HDL 4.70 LAB L501.6500 0-130 mg/dL Normal LDL 106 LAB L501.6600 5-40 mg/dL High VLDL 41 LAB L504.2610 84-246 U/L Normal LDH 171 Performed By: #### L500.2900 #### [facility] [address] [place], [address] CNOV Observed: 01/31/2018 Status: COMPLETED Source: [place] 4:00 PM [facility] REPOSITORY Office Visit (WOOB) GARRY CRISTINA ([id number]) 1985 F Date Time Provider Department 01/31/18 4:00 PM MINNIE POLO ([facility]) WOOB During your visit today, we recorded the following information about you: Blood pressure Weight Height 130/82 152 kg 1.651 m Minnie Polo APRN.CNP 01/31/2018 4:48 PM Signed Garry Cristina presents for removal of IUD due to expiration of IUD. UNIVERSAL PROTOCOL / SAFETY CHECKLIST Procedure to be performed: removal of IUD Sign in Communication: Completed Time Out: Team Confirms the Correct Patient, Correct Procedure, Correct Site and Site Marking, Correct Position (if applicable), Prep and Dry Time (if applicable). Time: 1603 Affirmation of Time Out: YES Sign Out Discussion: Completed PROCEDURE: Speculum placed in vagina, IUD string visualized and grasped with ring forceps. Denies family history of clotting disorders. Denies personal history of DVT, CVD or migraine with aura. Non- smoker. ASSESSMENT/PLAN: IUD removed without difficult and patient tolerated procedure well. Contraception plans: oral contraceptives 2. Encounter for initial prescription of contraceptive pills - ICD9: V25.01, ICD10: Z30.011 - RX for 09/02 given today. - discussed with patient on how to take OCP's. - counseled on benefits, risks and possible severe side effects of OCP's. - discussed need to use Condoms to help to prevent STD's including HIV etc. - NORETHINDRONE 1 MG-ETHINYL ESTRADIOL 20 MCG (21)-IRON 75 MG (7) TABLET Recommended Mirena due to hypertension - pt would like to try OCP with close monitoring of her own BP. Will begin 09/02 and follow- up in office in 3 months. Minnie Polo APRN.KARI Polo APRN.KARI 01/31/2018 4:25 PM Signed Oral Contraceptives: The Pill Beginning the Pill Pills come in either a 21 day pack or a 28 day pack. With the 21 day pack you will take one pill for 21 days then no pill for 7 days, during which time you will have what is known as withdrawal bleeding. The 28 day pack allows you to take a pill every day of the cycle with no interruptions. The first 21 pills are the pills with the active ingredients and the last 7 are the nonmedical pills (placebo) or they may contain iron. There will be bleeding during the week you are taking the nonmedical pills. The advantage to the 28 day pack is that you don?t have to keep track of when you stopped the pill. ? Unless otherwise instructed, you should start your pills the Monday following your first day of bleeding with your next period (if your period starts on a Monday, you should start pills the same day) ? Read your information packet that comes with the pills. Pill Benefits The pill is the most popular method of reversible control being used today. Millions of women rely on oral contraceptives as their control method. It is important to have an examination by your physician to determine if the pill is safe for you. There are several advantages associated with the pill: it is 97-98% effective; may improve acne; periods are more regular and less painful; there is less iron deficiency anemia in pill users. group home use is associated with a decreased incidence of ovarian and uterine cancer. There is also no evidence that the pill increases the incidence of any cancer. How Oral Contraceptives Work Oral contraceptives come in two varieties. One is the combination pill which contains both estrogen and progesterone. Combination pills are considered 98-99% effective in preventing . This pill comes in either monophasic, which delivers the same amount of estrogen and progesterone throughout the cycle; and triphasic, which try tries to mimic the normal hormone cycle by changing the levels of the hormones in the pills during the month. There is no real advantage to taking the one over the other. The other type of pill only contains progesterone. It is best used for women who can?t take estrogen. This type of pill is slightly less effective than the combination pill in preventing . Oral contraceptives prevent ovulation (release of an egg from the ovary) by suppressing the pituitary gland?s action. The pill does NOT prevent sexually transmitted disease. Obtaining a Prescription ? It is important to see your doctor before starting oral contraceptives so that you can have a full medical history taken and a physical examination given. Certain medical conditions may make the pill inappropriate for you, therefore it is very important to be honest and as complete as possible with the information you share with your doctor. The types of predisposing factors which would make the pill a poor choice of control would include: ? History of blood clots ? Stroke ? Serious liver disease or impaired liver function ? Unexplained vaginal bleeding or ? Cancer of the reproductive system ? Active gall bladder disease ? Hypertension Possible Side Effects It can take up to three months for your body to become adjusted to the pill. The more common side effects experienced at this time are: breakthrough spotting or bleeding, which is bleeding at any other time other than when you should be having a period; nausea or vomiting; breast tenderness; and mild fluid retention. There is no long-term weight gain with the use of the pill. Breakthrough bleeding is the most common complaint of new pill users. There is no way to predict who will have it and there is no way of preventing it. Breakthrough bleeding usually subsides on its own with no further treatment after the first three months of taking the pill. If these symptoms continue to occur after the first three months you should check with your physician to see if there is any physical cause and possibly change to another control pill. Problems: 1. Missed 1 pill: Take 2 pills the next day. 2. Missed 2 pills: Take 2 pills the next day and 2 pills the following day. Also use another form of control (condoms) along with the pill for the rest of the month. 3. Missed 3 or more pills: You have two choices. You can take two pills each day until you are on schedule, plus use an additional form of control along with the pill for the rest of the month. Or you can stop the pill and start a completely new pack of pills the next Monday. You must use another form of control with the pill for at least the first two weeks of the new pack. 4. You?re ill and you have been vomiting or have diarrhea: You must use another form of control with the pill since the pill may not be fully absorbed during your illness. Continue to use the added control until the end of the cycle. 5. Desire to become : Stop using the pill for one month before trying to become . 6. Taking other medications: The control pill is less effective when you take the antibiotic Rifampin, epilepsy (seizure) drugs such as phenytoin, carbamazepine, phenobarbital, topiramate and some medications for HIV. Let your doctor know if you start taking any of these medications while on the pill. Symptoms to Notify Your Doctor with Immediately: 1. Pain in your chest or legs 2. Continuous blurred vision 3. Severe headaches 4. Slurred speech 5. Tingling or weakness on one side of your body 6. Shortness of breath 7. Swelling of one leg Refills of Control Pills You need to see a doctor every year for a refill of your prescription. This is necessary in order that your health can be monitored closely while you are taking control pills. If your prescription should before your next scheduled appointment you can usually get a one month extension from your doctors office if you call during regular business hours about one week before you need to start the new package of pills. This allows the physician to refer to your chart for necessary health information. Referring Provider: MINNIE POLO ([facility]) [[id number]] Allergies As of Date: 01/31/2018 Noted Allergy Reaction CINNAMON 10/04/2011 12 - Shortness of Breath CORTISONE ACETATE 01/14/2017 14 - Other: See Comments AZITHROMYCIN 01/31/2018 4 - Hives SEASONAL ALLERGIES 01/13/2015 5 - Intolerance Comments: Seasonal Allergies VICODIN (HYDROCODONE-ACETAMINOPHE*01/31/2018 4 - Hives Date Reviewed: 01/31/2018 Reviewed by: Minnie Polo - Fully Assessed Reason for Visit: IUD Removal [1948] Primary Visit Diagnosis:Encounter for IUD removal [Z30.432] Other Visit Diagnosis:Encounter for initial prescription of contraceptive pills [Z30.011] Order(s):REMOVE INTRAUTERINE DEVICE [2754442] Order #: [id number] Norethin Tavares-Eth Estrad-FE (09/02, ,) 1 mg-20 mcg (21)/75 mg () per tabletTake 1 tablet by mouth once daily.Disp: 3 PackageRfl: 3 Prescriptions as of 01/31/2018 Sig: * METOPROLOL SUCC 50 MG-HYDROCH* Take 1 tablet by mouth once d* ALBUTEROL SULFATE HFA 90 MCG/* Inhale 2 Puffs as instructed * * OMEPRAZOLE 40 MG CAPSULE,LUISA* Take 40 mg by mouth once dotty* NORETHINDRONE 1 MG-ETHINYL ES* Take 1 tablet by mouth once d* HYDROCORTISONE 2.5 % TOPICAL * Apply 1 application to affect* Patient not taking: Reported on 01/31/2018 Problem List As Of Date 01/31/2018 Noted Resolved Palpitations [R00.2] INVALID FOR* Hypertension [I10] INVALID FOR* Headache [R51] INVALID FOR* Asthma [J45.909] INVALID FOR* Other instructions from your clinician: Oral Contraceptives: The Pill Beginning the Pill Pills come in either a 21 day pack or a 28 day pack. With the 21 day pack you will take one pill for 21 days then no pill for 7 days, during which time you will have what is known as withdrawal bleeding. The 28 day pack allows you to take a pill every day of the cycle with no interruptions. The first 21 pills are the pills with the active ingredients and the last 7 are the nonmedical pills (placebo) or they may contain iron. There will be bleeding during the week you are taking the nonmedical pills. The advantage to the 28 day pack is that you don?t have to keep track of when you stopped the pill. ? Unless otherwise instructed, you should start your pills the Monday following your first day of bleeding with your next period (if your period starts on a Monday, you should start pills the same day) ? Read your information packet that comes with the pills. Pill Benefits The pill is the most popular method of reversible control being used today. Millions of women rely on oral contraceptives as their control method. It is important to have an examination by your physician to determine if the pill is safe for you. There are several advantages associated with the pill: it is 97-98% effective; may improve acne; periods are more regular and less painful; there is less iron deficiency anemia in pill users. termite exterminator use is associated with a decreased incidence of ovarian and uterine cancer. There is also no evidence that the pill increases the incidence of any cancer. How Oral Contraceptives Work Oral contraceptives come in two varieties. One is the combination pill which contains both estrogen and progesterone. Combination pills are considered 98-99% effective in preventing . This pill comes in either monophasic, which delivers the same amount of estrogen and progesterone throughout the cycle; and triphasic, which try tries to mimic the normal hormone cycle by changing the levels of the hormones in the pills during the month. There is no real advantage to taking the one over the other. The other type of pill only contains progesterone. It is best used for women who can?t take estrogen. This type of pill is slightly less effective than the combination pill in preventing . Oral contraceptives prevent ovulation (release of an egg from the ovary) by suppressing the pituitary gland?s action. The pill does NOT prevent sexually transmitted disease. Obtaining a Prescription ? It is important to see your doctor before starting oral contraceptives so that you can have a full medical history taken and a physical examination given. Certain medical conditions may make the pill inappropriate for you, therefore it is very important to be honest and as complete as possible with the information you share with your doctor. The types of predisposing factors which would make the pill a poor choice of control would include: ? History of blood clots ? Stroke ? Serious liver disease or impaired liver function ? Unexplained vaginal bleeding or ? Cancer of the reproductive system ? Active gall bladder disease ? Hypertension Possible Side Effects It can take up to three months for your body to become adjusted to the pill. The more common side effects experienced at this time are: breakthrough spotting or bleeding, which is bleeding at any other time other than when you should be having a period; nausea or vomiting; breast tenderness; and mild fluid retention. There is no long-term weight gain with the use of the pill. Breakthrough bleeding is the most common complaint of new pill users. There is no way to predict who will have it and there is no way of preventing it. Breakthrough bleeding usually subsides on its own with no further treatment after the first three months of taking the pill. If these symptoms continue to occur after the first three months you should check with your physician to see if there is any physical cause and possibly change to another control pill. Problems: 1. Missed 1 pill: Take 2 pills the next day. 2. Missed 2 pills: Take 2 pills the next day and 2 pills the following day. Also use another form of control (condoms) along with the pill for the rest of the month. 3. Missed 3 or more pills: You have two choices. You can take two pills each day until you are on schedule, plus use an additional form of control along with the pill for the rest of the month. Or you can stop the pill and start a completely new pack of pills the next Monday. You must use another form of control with the pill for at least the first two weeks of the new pack. 4. You?re ill and you have been vomiting or have diarrhea: You must use another form of control with the pill since the pill may not be fully absorbed during your illness. Continue to use the added control until the end of the cycle. 5. Desire to become : Stop using the pill for one month before trying to become . 6. Taking other medications: The control pill is less effective when you take the antibiotic Rifampin, epilepsy (seizure) drugs such as phenytoin, carbamazepine, phenobarbital, topiramate and some medications for HIV. Let your doctor know if you start taking any of these medications while on the pill. Symptoms to Notify Your Doctor with Immediately: 1. Pain in your chest or legs 2. Continuous blurred vision 3. Severe headaches 4. Slurred speech 5. Tingling or weakness on one side of your body 6. Shortness of breath 7. Swelling of one leg Refills of Control Pills You need to see a doctor every year for a refill of your prescription. This is necessary in order that your health can be monitored closely while you are taking control pills. If your prescription should before your next scheduled appointment you can usually get a one month extension from your doctors office if you call during regular business hours about one week before you need to start the new package of pills. This allows the physician to refer to your chart for necessary health information. Prescriptions ordered this encounter Disp Refills Start End NORETHINDRONE 1 MG-ETHINYL ESTRADIOL* 3 Pa* 3 01/31/2018 Route: ORAL Sig: Take 1 tablet by mouth once daily. Disposition: Return if symptoms worsen or fail to improve, for Routine annual exam. Follow-up and Disposition History Recorded Encounter Status:Closed by MINNIE POLO on 01/31/18 PROGRESS Observed: 01/31/2018 Status: COMPLETED Source: [place] 3:51 PM [facility] [place] REPOSITORY HNO ID: [id number] Author: Minnie Sen) Aleksandra Service: (none) Author Type: Nurse Practitioner Type: Progress Notes Filed: 01/31/2018 4:48 PM Note Text: Garry Cristina presents for removal of IUD due to expiration of IUD. UNIVERSAL PROTOCOL / SAFETY CHECKLIST Procedure to be performed: removal of IUD Sign in Communication: Completed Time Out: Team Confirms the Correct Patient, Correct Procedure, Correct Site and Site Marking, Correct Position (if applicable), Prep and Dry Time (if applicable). Time: 1603 Affirmation of Time Out: YES Sign Out Discussion: Completed PROCEDURE: Speculum placed in vagina, IUD string visualized and grasped with ring forceps. Denies family history of clotting disorders. Denies personal history of DVT, CVD or migraine with aura. Non- smoker. ASSESSMENT/PLAN: IUD removed without difficult and patient tolerated procedure well. Contraception plans: oral contraceptives 2. Encounter for initial prescription of contraceptive pills - ICD9: V25.01, ICD10: Z30.011 - RX for 09/02 given today. - discussed with patient on how to take OCP's. - counseled on benefits, risks and possible severe side effects of OCP's. - discussed need to use Condoms to help to prevent STD's including HIV etc. - NORETHINDRONE 1 MG-ETHINYL ESTRADIOL 20 MCG (21)-IRON 75 MG (7) TABLET Recommended Mirena due to hypertension - pt would like to try OCP with close monitoring of her own BP. Will begin 09/02 and follow-up in office in 3 months. Minnie Polo APRN.TOUR OPERATOR ALLERGIES ALLERGIES DATE TYPE / CODE NAME / CODE REACTION SEVERITY SOURCE Drug hydrocodone Other Unknown N[facility] 9 Allergy/400124988( bitartrate/D93595 [facility]) 1555(RXNORM) Hospital Repository Drug acetaminophen/F00 Other Unknown [facility] 9 Allergy/878744030( 2745569(RXNORM) [facility] Rep[facility] Drug azithromycin/F006 Rash Unknown [place] 9 Allergy/369829671( 356187(RXNORM) [facility] SNOMED CT) Hospital Repository Drug cortisone/B511557 Hives Unknown [place] 9 Allergy/739454434( 945(RXNORM) [facility] SNOMED CT) Hospital Repository Miscellaneous PAPER TAPE Rash Unknown [place] 9 Allergy/675892981( [facility] SNOMED CT) Hospital Repository DRUG AZITHROMYCIN HIVES [facility] INGREDI/586878643( Clinic Main SNOMED CT) [place] Repository DRUG/243720419(SNO [facility] [address] MINOPHEN Clinic Main [place] Repository DRUG CORTISONE ACETATE OTHER: SEE C [facility] 7 INGREDI/158346989( [facility] Main SNOMED CT) [place] Repository Environ/411569887( SEASONAL INTOLERANCE [facility] [address]) ALLERGIES [facility] Main [place] Repository DRUG CINNAMON SHORTNESS OF [facility] 2 INGREDI/916654517( [facility] Main SNOMED CT) [place] Repository ENCOUNTERS ENCOUNTERS ADMIT/DISCHARGE ACCOUNT ADMITTING ENCOUNTER LOCATION SOURCE NUMBER CLASS 09/03/2018 [id number] Ambulatory General acute hospital ing:[facility] Repository 08/31/2018 [id number] Ambulatory General acute hospital ing:NS Repository 08/29/2018/08/29/19 [id number] Ambulatory BMSBuilding:B [facility]ii 19 [facility] Repository 08/23/2018/08/23/19 [id number] Ambulatory BMSBuilding:B [facility]ii 19 MS.[facility] Repository 08/10/2018/08/10/20 [id number] Emergency [address] HospitalBuild Hospital ing:ED Repository 08/03/2018/08/13/20 [id number] Ambulatory [address] HospitalBuild Hospital ing:NS Repository 08/01/2018/08/01/20 [id number] Ambulatory BMSBuilding:B Nii 18 MS.[facility] Hospital Repository 07/28/2018/07/30/20 [id number] Ambulatory BMSBuilding:W [place] Repository 07/27/2018 [id number] Ambulatory BMSBuilding:B Nii MS.CF.[facility] Repository 07/27/2018 [id number] Ambulatory [facility] ing[facility] Repository 07/24/2018 [id number] Ambulatory [facility] Hospital[facility] Hospital ing:PSN Repository 07/24/2018 [id number] Ambulatory BMSBuilding:W [facility] Hospital Repository 07/12/2018/07/12/20 [id number] Ambulatory BMSBuilding:B [place] 18 MS.[facility] Repository 06/28/2018 [id number] Ambulatory BMSBuilding:W [facility] Hospital Repository 06/28/2018 [id number] Ambulatory [facility] Hospital ing:[facility] Repository 06/27/2018/06/27/20 [id number] Ambulatory BMSBuilding:B [place] 18 MS.[facility] Repository 06/13/2018 [id number] Ambulatory BMSBuilding:W [facility] Hospital Repository 06/13/2018 [id number] Ambulatory [facility] ing:[facility] Repository 06/06/2018 [id number] Ambulatory [facility] Hospital[facility] Hospital ing:RAD.FUTUR Repository E 05/29/2018 [id number] Ambulatory [facility] Hospital ing:LAB.[facility]UTUR Repository E 04/20/2018/04/23/20 [id number] Ambulatory [address] Repository 04/17/2018 [id number] Ambulatory General acute hospital ing:LAB Repository 04/17/2018 [id number] Ambulatory General acute hospital ing:EMPH Repository 01/31/2018/02/03/[id number] Repository PAYERS PAYERS ENCOUNTER GUARANTOR PAYER SUBSCRIBER SOURCE 09/03/2018 GARRY Carver Primary Insurance:[facility] GARRY Bales [id number] [facility] Number: [id number], [place] [id number] Repository [address]Olr: (330) Date:5333-16-36GW [phone] () [address]NGCBPEBYB, [place] [address]RR: CHECK WEBSITE 09/03/2018 Secondary NOT GIVENUNK Nii Insurance:SELF PAY [facility] Number: Effective Repository Date:2018-08-23 08/31/2018 GARRY Carver Primary Insurance:[facility] GARRY Bales [id number] [facility] Number: [id number], [place] [id number] Repository 69854Kbx: (330) Date:2536-89-04WF [phone] () [address]AFLIVXAOB, [place] [address]LH: CHECK WEBSITE 08/31/2018 Secondary NOT GIVENUNK Nii Insurance:SELF PAY [facility] Number: Effective Repository Date:2018-08-14 08/29/2018 GARRY Carver Primary Insurance:[facility] GARRY Bales [id number] [facility] Number: [id number], [place] [id number] Repository [address]Oaw: (330) Date:9690-37-11FG [phone] () [address]687AWMDCRHCB, [place] [address]ZR: CHECK WEBSITE 08/29/2018 Secondary NOT GIVENUNK [place] Insurance:SELF PAY [facility] Number: Effective Repository Date:2018-08-23 08/23/2018 GARRY Carver Primary Insurance:[facility] GARRY [id number] [facility] EDENMANDOB: [facility] Hospitaly Number: [id number], [place] [id number] Repository [address]Fai: (330) Date:7112-88-80NM [phone] () [address]VQQKIZIDY, [place] [address]NY: CHECK WEBSITE 08/23/2018 Secondary NOT GIVENUNK [place] Insurance:SELF PAY [facility] Hospital Number: Effective Repository Date:2018-07-24 08/10/2018 GARRY E Primary Insurance:[facility] GARRY Bales [id number] [facility] Number: [id number], [place] [id number] Repository [address]Ttb: (330) Date:9042-52-08BU [phone] () [address]HAQWKAONG, [place] [address]LX: CHECK WEBSITE 08/10/2018 Secondary NOT GIVENUNK [place] Insurance:SELF PAY [facility] Number: Effective Repository Date:2018-08-10 08/03/2018 GARRY E Primary Insurance:[facility] GARRY Bales [id number] [facility] KELLINGDOB: [facility] Number: [id number], [place] [id number] Repository [address]33[address]Idd: (330) Date:1355-36-52BZ [phone] () [address]KIMDIWGHR, [place] [address]OO: CHECK WEBSITE 08/03/2018 Secondary NOT GIVENUNK Nii Insurance:SELF PAY [facility] Number: Effective Repository Date:2018-07-18 08/01/2018 GARRY E Primary Insurance:[facility] GARRY Bales [id number] [facility] KELLINGDOB: [facility] Number: [id number], [place] [id number] Repository 876[address]Wgy: (330) Date:3472-48-60YZ [phone] () [address]EVXUGHTYT, [place] [address]FZ: CHECK WEBSITE 08/01/2018 Secondary NOT GIVENUNK [place] Insurance:SELF PAY [facility] Number: Effective Repository Date:2018-07-31 07/28/2018 ZAKIA Porter Primary OVI [place]oster [id number] Insurance:MEDICARE KERNDOB: [facility] PART A BPolicy Number: [id number], [place] [id number] Repository [address]Umq: (330) Date:2018-07-28 [phone] () 07/28/2018 Secondary OVI J [place] Insurance:HUMANA KERNDOB: [facility] COMMERCIALHelen M. Simpson Rehabilitation Hospitaly [id number] Hospital Number: Repository [id number] Date:6890-85-45PW [address] [place] [phone]: 07/28/2018 Tertiary NOT GIVENUNK Nii Insurance:SELF PAY [facility] Number: Effective Repository Date:2018-07-28 07/27/2018 GARRY Carver Primary Insurance:[facility] GARRY Carver Nii [id number] [facility]DOB: [facility] Number: [id number], [place] [id number] Repository [address]48[address]Qal: (330) Date:3616-17-20IT [phone] () [address]JXIVZFDVE, [place] [address]VR: CHECK WEBSITE 07/27/2018 Secondary NOT GIVENUNK Nii Insurance:SELF PAY [facility] Hospital Number: Effective Repository Date:2018-07-27 07/27/2018 GARRY Carver Primary Insurance:[facility] GARRY Carver [place] [id number] [facility] TOMBALLLINGDOB: [facility] Number: [id number], [place] [id number] Repository [address]Obm: (330) Date:2790-84-02QP [phone] () [address]SIPASWUJY, [place] [address]GJ: CHECK WEBSITE 07/27/2018 Secondary NOT GIVENUNK N[place] Insurance:SELF PAY [facility] Number: Effective Repository Date:2018-07-12 07/24/2018 GARRY PRUITT Primary Insurance:[facility] GARRYSarah Bales [id number] [facility] KELLINGDOB: [facility] SERVICESPolicy Number: [id number], [place] [id number] Repository 237[address]Pym: (330) Date:4496-15-57RT [phone] () 33306EHSNXHJNE, [place] [address]TJ: CHECK WEBSITE 07/24/2018 Secondary NOT GIVENUNK [place] Insurance:SELF PAY [facility] Number: Effective Repository Date:2018-07-12 07/24/2018 GARRY E Primary Insurance:[facility] GARRY Bales [id number] [facility] KELLINGDOB: [facility] Number: [id number], [place] [id number] Repository 632[address]Lmo: (330) Date:8970-47-69JC [phone] () [address]OERPVURRM, [place] [address]UY: CHECK WEBSITE 07/24/2018 Secondary NOT GIVENUNK [place] Insurance:SELF PAY [facility] Number: Effective Repository Date:2018-07-24 07/12/2018 GARRY SONAL Primary Insurance:[facility] GARRY ACOSTALING1419 [facility] KELLINGDOB: [facility] Number: [id number], [place] [id number] Repository 7[address]Bqy: (330) Date:1478-90-02BX [phone] () 45822LVSZHYECB, [place] [address]VC: CHECK WEBSITE 07/12/2018 Secondary NOT GIVENUNK Nii Insurance:SELF PAY [facility] Number: Effective Repository Date:2018-07-12 06/28/2018 GARRY SONAL Primary Insurance:[facility] GARRY Bales [id number] [facility] KELLINGDOB: [facility] Number: [id number], [place] [id number] Repository [address]Wsl: (330) Date:8906-70-91BH [phone] () [address]GYMDCHHMQ, [place] [address]TM: CHECK WEBSITE 06/28/2018 Secondary NOT GIVENUNK Nii Insurance:SELF PAY [facility] Number: Effective Repository Date:2018-06-28 06/28/2018 GARRY SONAL Primary Insurance:[facility] GARRY CRISTNIA1419 [facility] KELLINGDOB: [facility] Number: [id number], [place] [id number] Repository [address]Rvu: (330) Date:6681-70-73IE [phone] () 260[address]YMSEGVOOS, [place] [address]SJ: CHECK WEBSITE 06/28/2018 Secondary NOT GIVENUNK Nii Insurance:SELF PAY [facility] Number: Effective Repository Date:2018-06-28 06/27/2018 GARRY SONAL Primary Insurance:[facility] GARRY CRISTINA1419 [facility] KELLINGDOB: [facility] Number: [id number], [place] [id number] Repository [address]Aoo: (330) Date:0522-60-17VB [phone] () [address]LJTDSUVII, [place] [address]WG: CHECK WEBSITE 06/27/2018 Secondary NOT GIVENUNK [place] Insurance:SELF PAY [facility] Number: Effective Repository Date:2018-06-12 06/13/2018 GARRY SONAL Primary Insurance:[facility] GARRY CRISTINA1419 [facility] KELLINGDOB: [facility] Number: [id number], [place] [id number] Repository 40[address]Wwa: (330) Date:4474-79-11LD [phone] () 40855YCMWAKBFX, [place] [address]PM: CHECK WEBSITE 06/13/2018 Secondary NOT GIVENUNK Nii Insurance:SELF PAY [facility] Number: Effective Repository Date:2018-06-13 06/13/2018 GARRY SONAL Primary Insurance:[facility] GARRY ACOSTALING1419 [facility] KELLINGDOB: [facility] Number: [id number], [place] [id number] Repository 792[address]Vri: (330) Date:2284-15-65MZ [phone] () [address]SWJTKNCPK, [place] [address]WB: CHECK WEBSITE 06/13/2018 Secondary NOT GIVENUNK Nii Insurance:SELF PAY [facility] Number: Effective Repository Date:2018-06-13 06/06/2018 GARRY SONAL Primary Insurance:[facility] GARRY PRUITT Nii [id number] [facility]usPike [facility]: [id number] [address]Jaw: [id number] Repository Date:[id number] () [address], [place] [address]NW: CHECK WEBSITE 06/06/2018 Secondary NOT GIVENUNK [place] Insurance:SELF PAY [facility] Number: Effective Repository Date:2018-06-06 05/29/2018 Garry Sonal Primary Insurance:[facility] Garry Pruitt [place] [id number] [facility] Number: [id number] County Hospital [address]Szt: [id number] Repository Date:[id number] [address] () [address], [place] [address]PB: CHECK WEBSITE 05/29/2018 Secondary NOT GIVENUNK [place] Insurance:SELF PAY [facility] Number: Effective Repository Date:2018-04-17 04/17/2018 Garry Sonal Primary Insurance:[facility] Garry Pruitt [place] [id number] [facility]: [facility] Number: [id number] County Hospital [address]Kki: [id number] Repository Date:1794-55-20CE [address] () [id number], [place] [address]WK: CHECK WEBSITE 04/17/2018 Secondary NOT GIVENUNK Nii Insurance:SELF PAY [facility] Number: Effective Repository Date:2018-04-17 04/17/2018 Garry Pruitt Primary Insurance:SELF NOT GIVENVICENTE [id number] [facility]ANCE[facility] Alvino Aguirre, Number: Effective [facility] [id number]: Date:2018-04-17 Repository ()
== END ==
PROVIDERS: Family Provider Internal Medicine; PCP Internal Medicine; Referring Provider Internal Medicine Cardiovascular Disease; Visit Provider Internal Medicine Cardiovascular Disease
DX: I49.1 Atrial premature depolarization (principal); I49.3 Ventricular premature depolarization; R06.02 Shortness of breath; R00.2 Palpitations
CPT/HCPCS: 71046; 94060; 94726; 94729

== ENCOUNTER → 2018-07-27 09:28 | Outpatient (CLI) | payer OTHER, SELFPAY ==
[2018-07-12 10:41] VITALS: BMI 54.3
--- NOTE | 2018-07-27 09:31 | STEWCON_ITS ---
Reason For Study: Dyspnea/SOB, PVC's, Palpitations Stress Results Protocol: Al Protocol Maximum Predicted HR: 190 bpm Target HR: 162 bpm % Maximum Predicted HR: 91 % DurationHeart Rate Stage (mm:ss) (bpm) BP Comment Baseline 108 172/88No Chest Pain; Diluted Definity 2 ML Given Al Protocol Stage I 3:00 151 180/78No Chest Pain; Mild Dyspnea Al Protocol Stage II 2:30 173 204/80No Chest Pain; Moderate to Severe Dyspnea Recovery 121 166/70No Chest Pain Stress Duration: 5:30 mm:ss Maximum Stress HR: 173 bpm METS: 7 Baseline Echocardiogram Findings Stress Echo Wall motion Data Resting WM Intermediate WM Stress WM Resting Wall Motion Wall Motion Stress All segments Normal. All segments Hyperkinetic. Ejection Fraction 65 %. Ejection Fraction 75 %. Stress Results Heart rate response: appropriate Blood pressure response: resting hypertension - appropriate response Arrhythmias: rare PAC during recovery Functional capacity: decreased Stopped secondary to: dyspnea. EKG Data Baseline ECG: Normal Sinus Rhythm; NS T-Wave Abnormality. Exercise ECG: No Obvious ECG Changes. Symptoms with Stress No c/o chest discomfort c/w angina pectoris during exercise / recovery. Interpretation Summary Negative (Adequate) Stress Echocardiogram Comment: heart rate respone c/w a deconditioned heart rate respone Ordering Physician: Homero Mohan Referring Physician: Homero Mohan Performed By: Cady Griffin, RDMAHENDRA, RVT
--- OUTSIDE RECORDS SUMMARY | 2018-09-11 22:49 | XMS RPT_ITS ---
:1985 Author Organization OHIP Support Name Relationship Address Phone GEOVANY GLOVER Unavailable [address] + [place] [address] GABBY CRISTINA Unavailable [address] + [place] [address] [facility] Unavailable [address] + [place] [address] GEOVANY GLOVER Unavailable [address] + [place] [address] GABBY CRISTINA Unavailable [address] + [place] [address] [facility] Unavailable [address] + [place] [address] GEOVANY GLOVER Unavailable [address] + [place] [address] GABBY CRISTINA Unavailable [address] + [place] [address] WC Unavailable [address] + [place] [address] ADALBERTO GEOVANY Unavailable [address] + [place] [address] GABBY CRISTINA Unavailable [address] + [place] [address] WC Unavailable [address] + [place] [address] ADALBERTO GEOVANY Unavailable [address] + [place] [address] GABBY CRISTINA Unavailable [address] + [place] [address] [facility] Unavailable [address] + [place] [address] GLOVER, GEOVANY Unavailable [address] + [place] [address] JAYANT CRISTINAELL Unavailable [address] + [place] [address] [facility] Unavailable [address] + [place] [address] GLOVER, GEOVANY Unavailable [address] + [place] [address] SHYANNE MACHELL Unavailable [address] + [place] [address] [facility] Unavailable [address] + [place] [address] GLOVER, GEOVANY Unavailable [address] + [place] [address] JAYANT CRISTINAELL Unavailable [address] + [place] [address] [facility] Unavailable [address] + [place] [address] GLOVER, GEOVANY Unavailable [address] + [place] [address] JAYANT CRISTINAELL Unavailable [address] + [place] [address] [facility] Unavailable [address] + [place] [address] GLOVER, GEOVANY Unavailable [address] + [place] [address] SHYANNE MACHELL Unavailable [address] + [place] [address] [facility] Unavailable [address] + [place] [address] GLOVER, GEOVANY Unavailable [address] + [place] [address] SHYANNE MACHELL Unavailable [address] + [place] [address] [facility] Unavailable [address] + [place] [address] GLOVER, GEOVANY Unavailable [address] + [place] [address] GABBY CRISTINA Unavailable [address] + [place] [address] [facility] Unavailable [address] + [place] [address] [facility] Unavailable [address] + [place] [address] [facility] Unavailable [address] + [place] [address] [facility] Unavailable [address] + [place] [address] GLOVER, KERRIE Unavailable [address] + [place] [address] [facility] Unavailable [address] + [place] [address] [facility] Unavailable [address] + [place] [address] GLOVER, KERRIE Unavailable [address] + [place] [address] GABBY CRISTINA Unavailable [address] + [place] [address] [facility] Unavailable [address] + [place] [address] [facility] Unavailable [address] + [place] [address] GABBY CRISTINA Unavailable [address] + [place] [address] [facility] Unavailable [address] + [place] [address] JAYANT CRISTINAELL Unavailable [address] + [place] [address] [facility] Unavailable [address] + [place] [address] JAYANT CRISTINAELL Unavailable [address] + [place] [address] [facility] Unavailable [address] + [place] [address] GABBY CRISTINA Unavailable [address] + [place] [address] [facility] Unavailable [address] + [place] [address] Care Team Providers Name Role Phone CHRIST, MINNIE (HEAD OF SALES PROMOTION) Attending Unavailable POLO, MINNIE (HEAD OF SALES PROMOTION) Referring Unavailable POLO, MINNIE (HEAD OF SALES PROMOTION) Attending Unavailable POLO, MINNIE (HEAD OF SALES PROMOTION) Referring Unavailable Moodispaw, Homero Attending Unavailable Moodispaw, Homero Referring Unavailable Moodispaw, Homero Attending Unavailable Moodispaw, Homero Referring Unavailable Oleghe, Efewongbe Primary Care Unavailable Moodispaw, Homero Consulting Unavailable Al Prajapati Attending Unavailable Oleghe, Efewongbe Referring Unavailable Al Prajapati Attending Unavailable Moodispaw, Homero Referring Unavailable Oleghe, Efewongbe Primary Care Unavailable JAMES SUAREZ Attending Unavailable Oleghe, Efewongbe Attending Unavailable Oleghe, Efewongbe Primary Care Unavailable ASSESSMENT, HEALTH RISK Attending Unavailable ASSESSMENT, HEALTH RISK Referring Unavailable Nadege, Kenyon Primary Care Unavailable Nadege, Kenyon Attending Unavailable Nadege, Kenyon Referring Unavailable Nadege, Kenyon Primary Care Unavailable Nadege, Kenyon Attending Unavailable Nadege, Kenyon Primary Care Unavailable Nadege, Kenyon Attending Unavailable Nadege, Kenyon Referring Unavailable Nadege, Kenyon Primary Care Unavailable Guicho Hollis Attending Unavailable Mary Riley Referring Unavailable Moodispaw, Homero Attending Unavailable Nadege, Kenyon Referring Unavailable Moodispasheila, Homero Attending Unavailable MoodispawHomero Referring Unavailable Oleghe, Efewongbe Primary Care Unavailable Oleghe, Efewongbe Attending Unavailable Oleghe, Efewongbe Referring Unavailable Nadege, Kenyon Primary Care Unavailable Nadege, Kenyon Attending Unavailable Nadege, Kenyon Referring Unavailable MoodispaHomero sosa Consulting Unavailable Oleghe, Efewongbe Attending Unavailable Oleghe, Efewongbe Referring Unavailable Moodispaw, Homero Attending Unavailable Oleghe, Efewongbe Primary Care Unavailable Moodispaw, Homero Attending Unavailable Moodispaw, Homero Referring Unavailable Moodispaw, Homero Attending Unavailable NadegeKenyon wallace Referring Unavailable Moodispasheila, Homero Attending Unavailable Oleghe, Efewongbe Primary Care Unavailable Moodispaw, Homero Referring Unavailable Moodispaw, Homero Attending Unavailable Oleghe, Efewongbe Primary Care Unavailable MoodistorstenHomero sosa Referring Unavailable [facility] Attending Unavailable [facility] Primary Care Unavailable PROBLEMS PROBLEMS DATE TYPE CONDITION / CODE ATTENDING STATUS SOURCE 08/31/2018 Unknown E66.9 - Obesity, Olegallitoe, Active [facility] E66.9(ICD-10) Hospital Repository 08/31/2018 Unknown Z71.3 - Dietary Olegallitoe, Active [place] counseling and [facility] Community surveillance / Hospital Z71.3(ICD-10) Repository 08/29/2018 Unknown M79.672 - Pain in Oled[place], Active [place] left foot / [facility] M79.672(ICD-10) Hospital Repository 08/23/2018 Unknown I10 - Essential MoodispaHomero sosa Active [place] (primary) Community hypertension / Hospital I10(ICD-10) Repository 08/10/2018 Unknown J18.9 - Pneumonia, HEVER SUAREZLEY Active [facility] unspecified organism Community / J18.9(ICD-10) Hospital Repository 08/01/2018 Unknown J45.40 - Moderate Alo, Al Active [place] persistent asthma, Community uncomplicated / Hospital J45.40(ICD-10) Repository 08/20/2018 Unknown I36.1 - Nonrheumatic Telma, Guicho Active [facility] tricuspid (valve) Community insufficiency / Hospital I36.1(ICD-10) Repository 07/27/2018 Unknown I49.1 - Atrial MoodispaHomero sosa Active [place] premature Community depolarization / Hospital I49.1(ICD-10) Repository 07/27/2018 Unknown I49.3 - Ventricular Moodispaw, Homero Active [place] premature Community depolarization / Hospital I49.3(ICD-10) Repository 07/27/2018 Unknown R00.2 - Palpitations Moodissabrina Homero Active [place] / R00.2(ICD-10) Community Hospital Repository 08/02/2018 Unknown R06.02 - Shortness AloAl suggs Active [place] of breath / Community R06.02(ICD-10) Hospital Repository 06/27/2018 Unknown I34.1 - Nonrheumatic Oleghe, Active [facility] mitral (valve) [facility] Community prolapse / Hospital I34.1(ICD-10) Repository 06/25/2018 Unknown 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 Sex: F C Admitted: Reason For Study: [...] MD Date Dictated: 09/03/1854 Date Transcribed: 09/04/182306 [employer] Field Coordinator: Signed INTERNAL MEDICINE Observed: 08/30/2018 Status: F Source: [place] OFFICE VISIT 1:13 PM [facility] Internal Medicine [address] [place] [address] OFFICE VISIT Date of Service: 08/29/18 MR#: [id number] Acct: [id number] Name: GARRY GLOVER Rep #: [id number] : 1985 Provider: Lisset Ford MD Age/Sex: 33/F Location[facility] Status: Signed Intake Vital Signs08/29/18 Body [...] was encouraged. This note was generated with [employer]ano dictation software. It may contain incorrect words, [...] Status: F Source: [place] REPORT 5:57 PM [facility] REPOSITORY [facility] [address] [place] [address] OFFICE VISIT Date of Service: 08/23/18 MR#: [id number] Acct: [id number] Name: GARRY GLOVER Rep #: [id number] : 1985 Provider: Homero Mohan MD Age/Sex: 33/F Location: [facility] Status: Signed HPI HPI Details: GARRY GLOVER, [...] 08/10/18 Pulmonary Pulmonary Function Test 07/24/18 08/23/18 5510 <Electronically signed by Homero Mohan MD> Date Homero Mohan MD Cosign Signature: Date (if applicable) CC: Kenyon Light MD EMERGENCY DEPARTMENT Observed: 08/10/2018 Status: F Source: [place] SUMMARY 6:06 AM [facility] REPOSITORY [facility] Medical Records Department [address] [place] [address] Emergency Department Summary 08/10/18 0316 MR#: [id number] Acct: [id number] Name: GARRY GLOVER Rep #: [id number] : 1985 32 From: James Suarez MD [...] Clarity Clear Urine pH 7.0 Ur Specific [place] 1.010 - Medical Decision Making Patient's pain [...] course, and recommended she follow-up with her family law specialist or return to the ER if worsening [...] your Primary Care Provider. Call [facility] ([phone]) or report to the closest Emergency Room. Call 911 if necessary. 08/10/18 06 <Electronically signed by James Suarez MD> Date James Suarez MD Cosigner Signature (If Indicated): Date CC: Lisset Ford MD CHEST PA AND LATERAL Observed: 08/10/2018 Status: F Source: [place] 4:37 AM [facility] REPOSITORY [facility] Imaging Services [address] [place] [address] Chest PA and Lateral MR#: [id number] Acct: [id number] Name: GARRY GLOVER Rep #: [id number] : 1985 F 32 From: Myrtle Gomez MD PCP: Lisset Ford MD Status: REG ER Study: Chest PA and Lateral Date of Exam: 08/10/18 Exam# [id number] Ordering Dr: James Suarez MD STUDY: X-RAY [...] CC: JAMES SUAREZ MD; Lisset Ford MD [employer] Field Coordinator: Signed URINALYSIS, COMPLETE Collected: 08/10/2018 Status: F Source: [place] 3:28 AM [facility] REPOSITORY Order Comment: How was Urine Obtained? [...] URINE SEEN Performed By: #### L400.0001 #### [facility] [address] [place], [address] ,URINE Collected: 08/10/2018 Status: F Source: [place] 3:28 [facility] REPOSITORY TYPE CODE TESTS RESULT OUT OF REFERENCE UNITS RANGE LAB L400.8000 Negative Normal HCGUQUAL Negative Result Comment: Very dilute urine specimens, as indicated by a low specific gravity, may not contain commercial pest control representative levels of hCG. If is still suspected, a first morning urine specimen should be collected 48 hours later and tested. Performed By: #### L400.7600 #### [facility] [address] [place], [address] ABDOMEN/PELVIS WITHOUT Observed: 08/10/2018 Status: F Source: [place] CONT 3:16 AM [facility] REPOSITORY [facility] Imaging Services [address] [place] [address] Abdomen/Pelvis without Cont MR#: [id number] Acct: [id number] Name: GARRY GLOVER Rep #: [id number] : 1985 F 32 From: Myrtle Gomez MD PCP: Lisset Ford MD Status: REG ER Study: Abdomen/Pelvis without Cont Date of Exam: 08/10/18 Exam# [id number] Ordering Dr: Jmaes Suarez MD STUDY: CT ABDOMEN AND PELVIS [...] CC: JAMES SUAREZ MD; Lisset Ford MD [employer] Field Coordinator: Signed PULMONARY VISIT REPORT Observed: 08/01/2018 Status: F Source: [place] 2:23 PM [facility] REPOSITORY [facility] Pulmonary Medicine of [address] [place] [address] OFFICE VISIT Date of Service: 08/01/18 MR#: [id number] Acct: [id number] Name: GARRY CRISTINA Rep #: [id number] : 1985 Provider: Al Prajapati MD Age/Sex: 32/F Location: [facility] Status: Signed Assessment AND Plan Problems 1. [...] in the why weight program here at [facility]. Patient has noted widely variable blood pressures [...] Status: F Source: [place] CONTRAST 5:54 PM [facility] REPOSITORY [facility] Cardiovascular Services [address] [place] [address] Stress Test Echo W/Contrast MR#: [id number] Acct: [id number] Name: GARRY CRISTINA Rep #: [id number] : 1985 32 From: Homero Mohan MD [...] MD Date Dictated: 07/27/18947 Date Transcribed: 07/27/181752 [employer] Field Coordinator: Signed PULMONARY FUNCTION Observed: 07/25/2018 Status: F Source: [place] REPORT COMP 5:52 AM [facility] REPOSITORY [facility] Pulmonary Services/Neurology [address] [place] [address] MR#: [id number] Acct: [id number] Name: GARRY CRISTINA Rep #: [id number] : 1985 32 From: Al Prajapati MD Referring Dr: Homero Mohan MD Status: REG CLI Ordering Dr: Date: Location: [facility] Sex: F C COMPLETE PULMONARY FUNCTION TEST INTERPRETATION Brief HPI: Patient is a 32 year old female, currently under the care of Dr. Mohan, who presents to [facility] for complete pulmonary function tests secondary to [...] MD Date Dictated: 07/24/181615 Date Transcribed: 07/24/181615 [employer] Field Coordinator: UMANG Signed CHEST PA AND LATERAL Observed: 07/24/2018 Status: F Source: [place] 8:54 AM [facility] REPOSITORY [facility] Imaging Services [address] [place] [address] Chest PA and Lateral MR#: [id number] Acct: [id number] Name: GARRY CRISTINA Rep #: [id number] : 1985 F 32 From: Tod Ellis DO PCP: Lisset Ford MD Status: REG CLI Study: Chest PA and Lateral Date of Exam: 07/24/18 Exam# [id number] Ordering Dr: Homero Mohan MD STUDY: X-RAY [...] Signed: Tod EllisDO at 22:21 EST Tel [phone], Service support , CC: Lisset Ford MD; Homero Mohan MD [employer] Field Coordinator: Signed CARDIOLOGY VISIT Observed: 07/12/2018 Status: F Source: [place] REPORT 11:46 AM [facility] REPOSITORY [facility] [address] [place] [address]. [address] [place] [address] OFFICE VISIT Date of Service: 07/12/18 MR#: [id number] Acct: [id number] Name: GARRY CRISTINA Rep #: [id number] : 1985 Provider: Homero Mohan MD Age/Sex: 32/F Location: [facility] Status: Signed HPI HPI Details: GARRY CRISTINA, is a 32 F who presents to the office today for outpatient cardiovascular consultation. She had previously been evaluated by the [facility] with her last outpatient cardiovascular [...] also states she has now joined the [facility] Y weight program. She is due to [...] tab PO DAILY 06/27/18 [History Confirmed 07/12/18] [facility] Medical History GERD (gastroesophageal reflux disease) (Chronic) [...] she is going to enroll in the [facility] weight loss program. Hopefully if she is [...] Observed: 07/12/2018 Status: F Source: [place] BY [facility] 10:20 AM [facility] REPOSITORY [facility] [address] [place] [address] 12 Lead EKG performed by [facility] 07/12/18 1019 MR#: [id number] Acct: [id number] Name: GARRY CRISTINA Rep #: [id number] : 1985 32 From: Homero Mohan MD Attending Dr: Homero Mohan MD Status: DEP AMB Ordering Dr: Homero Mohan MD Date: 07/12/18 Location: [facility] Sex: F C Admitted: [facility]/12 Lead EKG performed by [facility] ECG Report Interpretation Sinus Rhythm Electronically signed on 07/12/2018 at 11:53 by Homero Mohan Software Version [id number] 07/12/18 1154 Date Homero Mohan MD CC: Kenyon Light MD Date Dictated: 07/12/18 1019 Date Transcribed: 07/12/18 101 [employer] Field Coordinator: PM Signed INTERNAL MEDICINE Observed: 07/02/2018 Status: F Source: [place] OFFICE VISIT 1:37 PM [facility] Internal Medicine [facility] [place] [address] [place] [address] OFFICE VISIT Date of Service: 06/27/18 MR#: [id number] Acct: [id number] Name: GARRY CRISTINA Rep #: [id number] : 1985 Provider: Lisset Ford MD Age/Sex: 32/F Location[facility] Status: Signed Intake Vital Signs06/27/18 Height [...] 06/27/18] Nurse's Note: Has an appt with Medication Coordinator. Needs a Referral on 07/12/18 [facility] Medical History Hernia (Chronic) Chronic headaches (Chronic) [...] is scheduled to follow up with a Medication Coordinator soon and a Holter, ECHO and EKG [...] acute distress Orientation: awake, oriented x3, alert [facility] Head: atraumatic, normocephalic Resp Effort AND Inspection: [...] COMPLETE W/ Observed: 06/28/2018 Status: F Source: [place] CONTRAST 8:28 PM [facility] REPOSITORY [facility] Cardiovascular Services [address] [place] [address] Echo Complete W/ Contrast 06/28/18 0755 MR#: [id number] Acct: [id number] Name: GARRY CRISTINA Rep #: [id number] : 1985 32 From: Homero Mohan MD Attending Dr: Homero Mohan MD Status: REG CLI Ordering Dr: Homero Mohan MD Date: 06/28/18 Location: [facility] Sex: F C Admitted: Reason For Study: [...] MD Date Dictated: 06/28/18754 Date Transcribed: 06/28/182026 [employer] Field Coordinator: Signed FOOT MIN 3 VIEWS Observed: 06/13/2018 Status: F Source: [place] 1:20 PM [facility] REPOSITORY [facility] Imaging Services [address] [place] [address] Foot min 3 Views MR#: [id number] Acct: [id number] Name: GARRY CRISTINA Rep #: [id number] : 1985 F 32 From: Marvin Boudreaux DO PCP: Kenyon Light MD Status: REG CLI Study: Foot min 3 Views Date of Exam: 06/13/18 Exam# [id number] Ordering Dr: Kenyon Light MD STUDY: X-RAY [...] Service support , CC: Kenyon Light MD [employer] Field Coordinator: Signed PROGRESS Observed: 04/20/2018 Status: COMPLETED Source: [place] 9:37 AM [facility] REPOSITORY HNO ID: [id number] Author: Minnie (Kari) Christ Service: (none) Author Type: Nurse Practitioner Type: [...] if abnormal Follow-up as needed. Minnie Polo APRN.HEAD OF SALES PROMOTION CNOV Observed: 04/20/2018 Status: COMPLETED Source: [place] 9:30 AM [facility] REPOSITORY Office Visit (WOOB) GARRY CRISTINA ([id number]) 1985 F Date Time Provider Department 04/20/18 9:30 AM MINNIE POLO ([facility]) WOOB During your visit today, we [...] Minnie Polo APRN.CNP Referring Provider: MINNIE POLO ([facility]) [[id number]] Allergies As of Date: 04/20/2018 Noted Allergy Reaction CINNAMON 10/04/2011 12 - Shortness of Breath CORTISONE ACETATE 01/14/2017 14 - Other: See Comments AZITHROMYCIN 01/31/2018 4 - Hives SEASONAL ALLERGIES 01/13/2015 5 - Intolerance Comments: Seasonal Allergies VICODIN (HYDROCODONE-ACETAMINOPHE*01/31/2018 4 - Hives Date Reviewed: 04/20/2018 Reviewed by: Minnie ([facility]) Christ - Fully Assessed Reason for Visit: Contraception [...] 04/17/2018 Status: F Source: [place] 10:21 AM [facility] REPOSITORY Order Comment: Has Patient had X-rays with Contrast this admission? N Is Patient on Heparin? N TYPE CODE TESTS RESULT OUT OF RANGE REFERENCE UNITS LAB L501.5200 1.6-2.6 mg/dL Normal MG 2.1 Performed By: #### L501.5200, L501.9520, L506.0400 #### [facility] [address] [place], [place], [address] THYROID STIM HORMONE Collected: 04/17/2018 Status: F Source: [place] (TSH) 10:21 AM [facility] REPOSITORY Order Comment: Has Patient had X-rays with Contrast this admission? N Is Patient on Heparin? N TYPE CODE TESTS RESULT OUT OF RANGE REFERENCE UNITS LAB L501.9520 0.358-3.74 uIU/mL Normal TSH 1.52 Performed By: #### L501.5200, L501.9520, L506.0400 #### [facility] [address] [place], [address] T4 FREE DIRECT Collected: 04/17/2018 Status: F Source: [place] 10:21 AM [facility] REPOSITORY Order Comment: Has Patient had X-rays with Contrast this admission? N Is Patient on Heparin? N TYPE CODE TESTS RESULT OUT OF RANGE REFERENCE UNITS LAB L506.0400 0.76-1.46 ng/dL Normal T4 FREE 0.85 DIRECT Performed By: #### L501.5200, L501.9520, L506.0400 #### [facility] [address] [place] [address]. [place], [place], [address] URINALYSIS, EMPLOYEE Collected: 04/17/2018 Status: F Source: [place] 10:20 AM [facility] REPOSITORY TYPE CODE TESTS RESULT OUT OF [...] ESTERASE Negative Performed By: #### L400.0100 #### [facility] [address] [place] [address]. [place], [place], [address] CBC, EMPLOYEE Collected: 04/17/2018 Status: F Source: [place] 10:20 AM [facility] REPOSITORY TYPE CODE TESTS RESULT OUT OF [...] Lymph 4.00 Performed By: #### L100.0200 #### [facility] [address] [place], [place], [id number] NICOTINE URINE DRUG Collected: 04/17/2018 Status: F Source: [place] SCREEN 10:20 AM [facility] REPOSITORY TYPE CODE TESTS RESULT OUT OF [...] of Nicotine. Performed By: #### L505.6240 #### [facility] [address] [place], [place], [id number] EMPLOYEE PROFILE Collected: 04/17/2018 Status: F Source: [place] 10:20 AM [facility] REPOSITORY TYPE CODE TESTS RESULT OUT OF [...] LDH 171 Performed By: #### L500.2900 #### [facility] [address] [place], [address] CNOV Observed: 01/31/2018 Status: COMPLETED Source: [place] 4:00 PM [facility] REPOSITORY Office Visit (WOOB) GARRY CRISTINA ([id number]) 1985 F Date Time Provider Department 01/31/18 [...] less iron deficiency anemia in pill users. residential use is associated with a decreased incidence [...] and mild fluid retention. There is no fdc weight gain with the use of the [...] necessary health information. Referring Provider: MINNIE POLO ([facility]) [[id number]] Allergies As of Date: 01/31/2018 Noted Allergy [...] of contraceptive pills [Z30.011] Order(s):REMOVE INTRAUTERINE DEVICE [[id number]] Order #: [id number] Norethin Tavares-Eth Estrad-FE (09/02, ,) 1 mg-20 [...] less iron deficiency anemia in pill users. vermin exterminator use is associated with a decreased [...] and mild fluid retention. There is no fdc weight gain with the use of the [...] 01/31/18 PROGRESS Observed: 01/31/2018 Status: COMPLETED Source: [place] 3:51 PM [facility] REPOSITORY HNO ID: [id number] Author: Minnie Sen) Christ Service: (none) Author Type: Nurse Practitioner Type: [...] in office in 3 months. Minnie Polo APRN.HEAD OF SALES PROMOTION ALLERGIES ALLERGIES DATE TYPE / CODE NAME / CODE REACTION SEVERITY SOURCE Drug hydrocodone Other Unknown Nii 9 Allergy/873198839( bitartrate/Y54017 Community SNOM[facility]) 1555(RXNORM) Hospital Repository Drug acetaminophen/F00 Other Unknown Nii 9 Allergy/760003517( 2014213(RXNORM) Community SNOMED CT) Hospital Repository Drug azithromycin/F006 Rash Unknown [place] 9 Allergy/031200843( 565110(RXNORM) Replaced By [facility] SNOMED [facility]) Hospital Repository Drug cortisone/S618614 Hives Unknown [place] 9 Allergy/230003719( 945(RXNORM) Replaced By [facility] SNOMED CT) Hospital Repository Miscellaneous PAPER TAPE Rash Unknown [place] 9 Allergy/437203251( Replaced By [facility] SNOMED CT) Hospital Repository DRUG AZITHROMYCIN HIVES [place] 8 INGREDI/343638025( Clinic Main SNOMED CT) [place] Repository DRUG/269080653(S[facility] [place] [address] MINOPHEN Clinic Main [place] Repository DRUG CORTISONE ACETATE OTHER: SEE C [facility] 7 INGREDI/562717024( [facility] Main SNOMED CT) [place] Repository Environ/785324044( SEASONAL INTOLERANCE [place] [address]) ALLERGIES [facility] Main [place] Repository DRUG CINNAMON SHORTNESS OF [facility] 2 INGREDI/260688504( [facility] Main SNOMED CT) [place] Repository ENCOUNTERS ENCOUNTERS ADMIT/DISCHARGE ACCOUNT ADMITTING ENCOUNTER LOCATION SOURCE NUMBER CLASS 09/03/2018 [id number] Ambulatory [facility] ing:CVS Repository 08/31/2018 [id number] Ambulatory [facility] ing:NS Repository 08/29/2018/08/29/19 [id number] Ambulatory BMSBuilding:B Nii 19 MS.[facility] Repository 08/23/2018/08/23/19 [id number] Ambulatory BMSBuilding:B Nii 19 MS.[facility] Repository 08/10/2018/08/10/20 [id number] Emergency [address] HospitalBuild Hospital ing:ED Repository 08/03/2018/08/13/20 [id number] Ambulatory [address] HospitalBuild Hospital ing:NS Repository 08/01/2018/08/01/20 [id number] Ambulatory BMSBuilding:B Nii 18 MS.[facility] Repository 07/28/2018/07/30/20 [id number] Ambulatory BMSBuilding:W [place] Repository 07/27/2018 [id number] Ambulatory BMSBuilding:B Nii MS.[facility] Repository 07/27/2018 [id number] Ambulatory [facility] HospitalBuild Hospital ing:CVS Repository 07/24/2018 [id number] Ambulatory BMSBuilding:W [facility] Repository 07/24/2018 [id number] Ambulatory [facility] HospitalBuild Hospital ing:PSN Repository 07/12/2018/07/12/20 [id number] Ambulatory BMSBuilding:B Nii 18 MS.[facility] Repository 06/28/2018 [id number] Ambulatory [facility]MS[facility] Repository 06/28/2018 [id number] Ambulatory [facility] HospitalBuild Hospital ing:CVS Repository 06/27/2018/06/27/20 [id number] Ambulatory BMSBuilding:B [place] 18 MS.[facility] Repository 06/13/2018 [id number] Ambulatory [facility] HospitalBuild Hospital ing:CVS Repository 06/13/2018 [id number] Ambulatory [facility]MS[facility] Repository 06/06/2018 [id number] Ambulatory [facility] HospitalBuild Hospital ing:RAD.FUTUR Repository E 05/29/2018 [id number] Ambulatory [facility] HospitalBuild Hospital ing:LAB.FUTUR Repository E 04/20/2018/04/23/20 [id number] Ambulatory [address] Repository 04/17/2018 [id number] Ambulatory [facility] ing:LAB Repository 04/17/2018 [id number] Ambulatory [facility] ing:EMPH Repository 01/31/2018/02/03/[id number] Repository PAYERS PAYERS ENCOUNTER GUARANTOR PAYER SUBSCRIBER SOURCE 09/03/2018 GARRY Cortez Primary Insurance:[facility] GARRY Bales [id number] [facility] Number: [id number], [place] [id number] Repository 95078Ech: (330) Date:6967-43-54UG [phone] () 34504JYZSZDSHQ, [place] [address]CF: CHECK WEBSITE 09/03/2018 Secondary NOT GIVENUNK Nii Insurance:SELF PAY [facility] Number: Effective Repository Date:2018-08-23 08/31/2018 GARRY Cortez Primary Insurance:[facility] GARRY Bales [id number] [facility] Number: [id number], [place] [id number] Repository 97[address]Czl: (330) Date:8389-45-97YF [phone] () 05004TKTVECPMG, [place] [address]GI: CHECK WEBSITE 08/31/2018 Secondary NOT GIVENUNK Nii Insurance:SELF PAY [facility] Number: Effective Repository Date:2018-08-14 08/29/2018 GARRY Crotez Primary Insurance:[facility] GARRY Bales [id number] [facility] Number: [id number], [place] [id number] Repository 12973Ktb: (330) Date:3499-77-48BM [phone] () [address]279QEGFPCJUJ, [place] [address]LR: CHECK WEBSITE 08/29/2018 Secondary NOT GIVENUNK [place] Insurance:SELF PAY [facility] Number: Effective Repository Date:2018-08-23 08/23/2018 GARRY Cortez Primary Insurance:[facility] GARRY [id number] [facility] EDENMANDOB: [facility] SERVICES[facility]ylvan[facility] Number: [id number], [place] [id number] Repository 76900Zmt: (330) Date:6727-34-85WR [phone] () 38304FLHETLFSX, [place] [address]BB: CHECK WEBSITE 08/23/2018 Secondary NOT GIVENUNK [place] Insurance:SELF PAY [facility] Number: Effective Repository Date:2018-07-24 08/10/2018 GARRY E Primary Insurance:[facility] GARRY Bales [id number] [facility]: [facility] SERVICES[facility] Number: [id number], [place] [id number] Repository 275[address]Juq: (330) Date:7378-88-35YB [phone] () 44005RFHNZQEDV, [place] [address]OE: CHECK WEBSITE 08/10/2018 Secondary NOT GIVENUNK [place] Insurance:SELF PAY [facility] Number: Effective Repository Date:2018-08-10 08/03/2018 GARRY E Primary Insurance:[facility] GARRY Bales [id number] [facility] KELLINGDOB: [facility] SERVICES[facility] Number: [id number], [place] [id number] Repository 278[address]Jgn: (330) Date:8797-97-97LP [phone] () 51687FHNWYIWHB, [place] [address]TQ: CHECK WEBSITE 08/03/2018 Secondary NOT GIVENUNK Nii Insurance:SELF PAY [facility] Number: Effective Repository Date:2018-07-18 08/01/2018 GARRY E Primary Insurance:[facility] GARRY Bales [id number] [facility] KELLINGDOB: [facility] Number: [id number], [place] [id number] Repository 64[address]Stn: (330) Date:5770-11-92HH [phone] () 93400VMKCASPUJ, [place] [address]PU: CHECK WEBSITE 08/01/2018 Secondary NOT GIVENUNK [place] Insurance:SELF PAY [facility] Number: Effective Repository Date:2018-07-31 07/28/2018 ZAKIA Porter Primary OVI De Jesusoster [id number] Insurance:MEDICARE KERNDOB: [facility] PART A BPolicy Number: [id number], [place] [id number] Repository 34464Col: (330) Date:2018-07-28 [phone] () 07/28/2018 Secondary OVI J [place] Insurance:HUMANA KERNDOB: Replaced By [facility] COMMERCIALHospital Of [facility]ylvaniay [id number] Number: Repository [id number] Date:6754-70-08IJ [address] [place] [address]QF: 07/28/2018 Tertiary NOT GIVENUNK Nii Insurance:SELF PAY [facility] Number: Effective Repository Date:2018-07-28 07/27/2018 GARRY Cortez Primary Insurance:[facility] GARRY Mehul Nii [id number] [facility] KELLINGDOB: [facility] Number: [id number], [place] [id number] Repository [address]Uhr: (330) Date:8966-88-33WF [phone] () 92885FYPKYXCZV, [place] [address]PA: CHECK WEBSITE 07/27/2018 Secondary NOT GIVENUNK Nii Insurance:SELF PAY [facility] Number: Effective Repository Date:2018-07-27 07/27/2018 GARRY Cortez Primary Insurance:[facility] GARRY Cortez [place] [id number] [facility] KELLINGDOB: [facility] Number: [id number], [place] [id number] Repository 45[address]Fbm: (330) Date:1106-50-53EG [phone] () 11438IAJSZGHJD, [place] [address]SU: CHECK WEBSITE 07/27/2018 Secondary NOT GIVENUNK Nii Insurance:SELF PAY [facility] Number: Effective Repository Date:2018-07-12 07/24/2018 GARRY Cortez Primary Insurance:[facility] GARRY E Nii [id number] [facility] KELLINGDOB: [facility] SERVICESPolicy Number: [id number], [place] [id number] Repository 63[address]Xbh: (330) Date:4139-99-34WC [phone] () [address]OGPYNEWET, [place] [address]LM: CHECK WEBSITE 07/24/2018 Secondary NOT GIVENUNK [place] Insurance:SELF PAY Replaced By [facility] Number: Effective Repository Date:2018-07-24 07/24/2018 GARRY SONAL Primary Insurance:[facility] GARRY Bales [id number] [facility] KELLINGDOB: [facility] SERVICESPolicy Number: [id number], [place] [id number] Repository 85[address]Hbm: (330) Date:5450-28-22RC [phone] () 57053TDRPYZBCG, [place] [address]YL: CHECK WEBSITE 07/24/2018 Secondary NOT GIVENUNK [place] Insurance:SELF PAY Replaced By [facility] Number: Effective Repository Date:2018-07-12 07/12/2018 GARRY SONAL Primary Insurance:[facility] GARRY ACOSTALING1419 [facility] KELLINGDOB: [facility] SERVICESDignity Health [facility] Centericy Number: [id number], [place] [id number] Repository 89[address]Blz: (330) Date:8566-51-08KM [phone] () [address]NYDAIWXWF, [place] [address]KV: CHECK WEBSITE 07/12/2018 Secondary NOT GIVENUNK Nii Insurance:SELF PAY [facility] Number: Effective Repository Date:2018-07-12 06/28/2018 GARRY SONAL Primary Insurance:[facility] GARRY De Jesusoster [id number] [facility] KELLINGDOB: [facility] SERVICESDignity Health Mer[facility] Gilbert Medical Centericy Number: [id number], [place] [id number] Repository 37[address]Uvb: (330) Date:8096-80-57VT [phone] () 82687LKFNICCPS, [place] [address]ES: CHECK WEBSITE 06/28/2018 Secondary NOT GIVENUNK Nii Insurance:SELF PAY [facility] Number: Effective Repository Date:2018-06-28 06/28/2018 GARRY SONAL Primary Insurance:[facility] GARRY CRISTINA1419 [facility] KELLINGDOB: [facility] Number: [id number], [place] [id number] Repository 657[address]Yux: (330) Date:8929-53-91NG [phone] () 38837ZEJWHTGSB, [place] [address]IB: CHECK WEBSITE 06/28/2018 Secondary NOT GIVENUNK Nii Insurance:SELF PAY [facility] Number: Effective Repository Date:2018-06-28 06/27/2018 GARRY SONAL Primary Insurance:[facility] GARRY CRISTINA1419 [facility] KELLINGDOB: [facility] Number: [id number], [place] [id number] Repository 80491Icq: (330) Date:8816-33-74VO [phone] () [address]PHRDCOGKK, [place] [address]UK: CHECK WEBSITE 06/27/2018 Secondary NOT GIVENUNK [place] Insurance:SELF PAY [facility] Number: Effective Repository Date:2018-06-12 06/13/2018 GARRY SONAL Primary Insurance:[facility] GARRY CRISTINA1419 [facility] KELLINGDOB: [facility] Number: [id number], [place] [id number] Repository 46[address]Lkd: (330) Date:8957-65-41DX [phone] () 238[address]SWTHDOAZJ, [place] [address]IP: CHECK WEBSITE 06/13/2018 Secondary NOT GIVENUNK Nii Insurance:SELF PAY [facility] Number: Effective Repository Date:2018-06-13 06/13/2018 GARRY SONAL Primary Insurance:[facility] GARRY ACOSTALING1419 [facility]DOB: [facility] Number: [id number], [place] [id number] Repository 75418Xlg: (330) Date:6225-46-87HR [phone] () 39404FGKZLEGBE, [place] [address]BQ: CHECK WEBSITE 06/13/2018 Secondary NOT GIVENUNK Nii Insurance:SELF PAY [facility] Number: Effective Repository Date:2018-06-13 06/06/2018 GARRY SONAL Primary Insurance:[facility] GARRY PRUITT Nii [id number] [facility]IT[facility]INGD[facility]: [facility] Number: [id number] County General Hospital [address]Pja: [id number] Repository Date:3715-18-12DT [address] () 39509FGYKBKYNX, [place] [address]BR: CHECK WEBSITE 06/06/2018 Secondary NOT GIVENUNK [place] Insurance:SELF PAY [facility] Number: Effective Repository Date:2018-06-06 05/29/2018 Garry Sonal Primary Insurance:[facility] Garry Pruitt [place] [id number] [facility] CenterlingD[facility]: [facility] Number: [id number] County General Hospital [address]Kfu: [id number] Repository Date:3635-87-11HX [address]OX () [address]TUEINSPWG, [place] [address]LD: CHECK WEBSITE 05/29/2018 Secondary NOT GIVENUNK Nii Insurance:SELF PAY [facility] Number: Effective Repository Date:2018-04-17 04/17/2018 Garry Sonal Primary Insurance:[facility] Garry Pruitt Lyons [id number] [facility]: [facility] Number: [id number] County General Hospital [address]Lyn: [id number] Repository Date:2561-68-89RI [address] () [address]86JJOYIRRFE, [place] [address]MU: CHECK WEBSITE 04/17/2018 Secondary NOT GIVENUNK Nii Insurance:SELF PAY [facility] Number: Effective Repository Date:2018-04-17 04/17/2018 Garry Pruitt Primary Insurance:SELF NOT GIVENVICENTE [id number] [facility] Alvino Aguirre, Number: Effective [facility] [address]Fbk: Date:2018-04-17 Repository ()
== END ==
PROVIDERS: Family Provider Internal Medicine; PCP Internal Medicine; Referring Provider Internal Medicine Cardiovascular Disease; Visit Provider Internal Medicine Cardiovascular Disease
DX: I49.1 Atrial premature depolarization (principal); I49.3 Ventricular premature depolarization; R06.02 Shortness of breath; R00.2 Palpitations
CPT/HCPCS: 93017; 93350; Q9957; A4216; C8928

== ENCOUNTER 2018-08-03 09:30 | Outpatient (RCR) | payer OTHER, SELFPAY ==
[2018-07-12 10:41] VITALS: BMI 54.3
== END 2018-08-13 23:59 ==
LOC: NS 09:30
PROVIDERS: Family Provider Internal Medicine; PCP Internal Medicine; Visit Provider Internal Medicine
DX: E66.9 Obesity, unspecified (principal); Z71.3 Dietary counseling and surveillance
CPT/HCPCS: 97802; 97803

== ENCOUNTER 2018-08-10 02:39 | Emergency (ER) | payer OTHER, SELFPAY ==
[2018-08-01 13:12] VITALS: BMI 54.3
[2018-08-10 02:40] VITALS: BP 188/100; PULSE 118; RESP 16; TEMP 36.8; O2SAT 97; BMI 54.9
[2018-08-10 02:47] VITALS: BP 179/99
--- NOTE | 2018-08-10 03:15 | CT_ITS ---
STUDY: CT ABDOMEN AND PELVIS WITHOUT CONTRAST REASON FOR EXAM: Female, 32 years old. Left-sided flank pain. RADIATION DOSAGE (If Supplied By Facility): CTDIvol = ( 24.18 ) mGy, DLP = ( 1226.21 ) mGycm TECHNIQUE: Transaxial images were obtained from the dome of the diaphragm to the symphysis pubis without oral contrast, and without intravenous contrast. Sagittal and coronal images were reconstructed. Individualized dose optimization techniques were used for this CT. COMPARISON: None. FINDINGS: There is left lower lobe airspace consolidation possibly representing pneumonia. There is also a small left-sided pleural effusion. The visualized portions of the heart are within normal limits. There is decreased attenuation of the liver consistent with steatosis. The liver is enlarged measuring up to 21.1 cm in greatest dimension. The gallbladder is contracted. Normal spleen. Normal pancreas. Normal bilateral adrenal glands. Normal right kidney. Normal left kidney. Normal visualized stomach. There is no evidence for dilated bowel, ascites or pneumoperitoneum. The small bowel has a grossly normal appearance. There is apparent thickening of the smiley of the mid and distal descending colon possibly related in part to nondistention. Stool is visible elsewhere in the colon with scattered diverticula. The appendix is visualized and appears normal. Normal abdominal aorta. Normal inferior vena cava. Normal retroperitoneum. Urinary bladder is not distended. Normal visualized uterus. There is a small umbilical hernia containing fat. Normal osseous structures. CT/Abdomen/Pelvis without Cont IMPRESSION: 1. Left lower lobe airspace consolidation with pleural effusion likely represents pneumonia. 2. Hepatomegaly and hepatic steatosis. Electronically Signed: Myrtle Gomez MD at 4:25 EST , Service support ,
--- NOTE | 2018-08-10 03:16 | ED.VIS.GEN ---
History of Present Illness Chief Complaint: Flank Pain Informant: Patient Onset: Yesterday Context: Gradual Onset Timing: Continuous, Waxes and wanes Quality: ache, sharp Location: left low back Current Severity: Severe Maximum Severity: Severe Worsened by: deep inspiration Relieved by: breathing easier Associated Symptoms: feels like occasional spasms in that area Narrative: Does not recall any injury or movements/lifting that could have resulted in a muscle strain. Pain is low in her left low back. It does not radiate into her side, front/abdomen, chest, or lower extremity. No urinary symptoms or hematuria. Never had a kidney stone before. No history of DVT or PE. She has been doing different types of movements to try to reproduce the pain but it does not necessarily make things worse. She states she was diagnosed with an incidentally found a hernia somewhere in her left side on a CT scan that was done for other reasons, and she states it was pointed out to her in a different area than this pain. She denies any nausea or vomiting, she has had normal bowel movements recently. - Past Medical History (1) Arthritis Status: Chronic (2) Asthma Status: Chronic (3) Chronic headaches Status: Chronic (4) Essential hypertension Status: Chronic (5) GERD (gastroesophageal reflux disease) Status: Chronic (6) Hernia Status: Chronic Comment: ULQ (7) Mitral valve prolapse Status: Chronic (8) Premature ventricular contraction Status: Chronic (9) Seasonal allergies Status: Chronic Past Medical History - Allergies and Home Meds Allergies/Adverse Reactions: Allergies acetaminophen [From Vicodin] Adverse Reaction (Verified 08/10/18 02:45) Other azithromycin [From Zithromax] Adverse Reaction (Verified 08/10/18 02:45) Rash cortisone Adverse Reaction (Verified 08/10/18 02:45) Hives hydrocodone bitartrate [From Vicodin] Adverse Reaction (Verified 08/10/18 02:45) Other PAPER TAPE Adverse Reaction (Uncoded 08/10/18 02:45) Rash Primary Care Physician: Lisset Ford MD [Primary Care Provider] - Surgical History: - - recent right ankle surgery, tonsil, wisdom teeth Smoking Status: Never smoker Drugs: None - Family History Maternal Family History: Family History (Last Reviewed 08/01/18 @ 13:14 by Amberly Rich) Father Cancer Mother Hypertension Thyroid disorder Grandmother Heart disease Family History: Reports: Hypertension Paternal Family History: Family History (Last Reviewed 08/01/18 @ 13:14 by Amberly Rich) Father Cancer Mother Hypertension Thyroid disorder Grandmother Heart disease Family History: Reports: - - leukemia, hodgkins lymphoma Review of Systems General: Denies: Chills, Fever, Sweats Cardiovascular: Denies: Chest pain, Palpitations Respiratory: Reports: Dyspnea - due to pain on inspiration only, Cough. Denies: Dyspnea on exertion Gastrointestinal: Denies: Abdominal pain, Nausea, Vomiting, Diarrhea Genitourinary: Denies: Dysuria, Hematuria, Frequency Musculoskeletal: Reports: Back pain. Denies: Extremity Pain Skin: Denies: Rash, Wounds Neurological: Denies: Headache, Weakness, Numbness Physical Exam Vital Signs/Narrative: Vital Signs Temp Pulse Resp BP Pulse Ox 08/10/18 02:47 179/99 H 08/10/18 02:40 98.3 F 118 H 16 188/100 H 97 Inital Vital Signs reviewed: Yes General: Well nourished, Well developed, - - Uncomfortable, NAD Head: Normocephalic, Atraumatic Eyes: Perrl, EOMI Neck: Supple, Nontender Cardiovascular: Regular rate, Regular rhythm, No murmurs Respiratory: No distress, CTA bilaterally, Chest nontender Abdomen: Soft, Nontender, Nondistended, Normal bowel sounds Back: Normal Inspection, - - Tender to palpation in her left low back, near or just distal/caudal to the 11th rib tip. No rash here. Negative straight leg raise, but pain slightly increases when her leg is on the way down to the bed. However, extending and flexing the thigh against resistance does not reproduce the pain. No true CVA tenderness.. Negative for: Spinal tenderness Extremities: Nontender, No edema Skin: Normal color, No rash Neurological: Alert, Oriented x3, Cranial nerves II-XII grossly intact, Normal Strength, Normal Sensation Psychological: Normal affect Diagnostic/Tx/Re-eval Impressions Abdomen/Pelvis CT 08/10/18 03:15 IMPRESSION: 1. Left lower lobe airspace consolidation with pleural effusion likely represents pneumonia. 2. Hepatomegaly and hepatic steatosis. Electronically Signed: Myrtle Gomez MD at 4:25 EST , Service support , Chest X-Ray 08/10/18 04:36 IMPRESSION: No radiographic evidence of acute cardiopulmonary disease. Electronically Signed: Myrtle Gomez MD at 5:49 EST , Service support , 08/10/18 03:15 CT Abd [Abdomen/Pelvis without Cont] [CT] Stat 08/10/18 04:36 Chest PA and Lateral [RAD] Stat Laboratory Results 08/10/18 08/10/18 03:28 03:28 Urine Color Yellow Urine Clarity Clear Urine pH 7.0 Ur Specific Edison 1.010 Urine Protein Negative Urine Glucose (UA) Normal Urine Ketones Negative Urine Occult Blood Negative Urine Nitrite Negative Urine Bilirubin Negative Urine Urobilinogen Normal Ur Leukocyte Esterase Negative Urine RBC 0 SEEN Urine WBC 0 SEEN Ur Squamous Epith Cells 0-5 SEEN Urine Bacteria RARE Urine Mucus 0 SEEN Urine Test Negative - Medical Decision Making Patient's pain is pleuritic, however it is very low lateral lumbar spine area, more suspicious for musculoskeletal pain, however NSAIDs did not help her pain at all; she took an Aleve multiple hours prior to coming to the ER, and I gave her Toradol 15 mg with no improvement. After morphine she is feeling much better, the pain is significantly dulled and she can breathe better. Her urine was normal, but we had obtained a CT abdomen/pelvis to look for causes of possible renal colic. Incidentally, she has airspace disease in the left lower lobe of the lung, with a small pleural effusion as well. I suspect this is a parapneumonic effusion. She has been having quite a bit of coughing and intermittent dyspnea lately, and in the past 1-2 months this has led to a stress echo that was unremarkable, and pulmonary function tests that led to her being placed on Brio and she is due to follow-up with pulmonology in several months. She states that her coughing is actually improved since she started the Brio a couple weeks ago. The appearance of the airspace disease on the CT is inconsistent with pulmonary infarct, she has no signs of a DVT and no risk for venous thrombo-embolic disease, and I suspect this does represent pneumonia as the radiologist interpreted it. Started her on Levaquin, and will prescribe her some pain medicine in addition to the rest of the antibiotic course, and recommended she follow-up with her environmental studies faculty member or return to the ER if worsening despite the antibiotic. However, as I discussed with the patient, the upper part of the abdominal CT seems to show the entire area of pathology and I do not think she needs a chest CT emergently at this time. I did obtain a chest x-ray since it would be easier to follow this with chest x-ray, however it appears unremarkable. There is some blunting on my interpretation on the lateral, but it is the same appearance as her chest x-ray from 2 weeks ago. ED Disposition - Plan for ED Patient: Disposition: Home or Assisted Living Chief Complaint: Flank Pain Diagnosis: Community acquired pneumonia, Parapneumonic effusion Instructions: ED Effusion Pleural, ED Pneumonia Adult Prescriptions: Oxycodone HCl/Acetaminophen [Percocet 5/325] 1 tablet PO Q6H PRN PRN 3 Days #12 tablet PRN Reason: Pain Levofloxacin [Levaquin] 750 mg PO DAILY #4 tablet Referrals: Lisset Ford MD [Primary Care Provider] - Al Prajapati MD [STAFF PHYSICIAN] - (Call for follow-up appointment information)
[2018-08-10] MEDS: Ketorolac 15 MG/ML Vial IV (03:20)
--- NOTE | 2018-08-10 03:20 | ED.DCSUM_ITS ---
History of Present Illness Chief Complaint: Flank Pain Informant: Patient Onset: Yesterday Context: Gradual Onset Timing: Continuous, Waxes and wanes Quality: ache, sharp Location: left low back Current Severity: Severe Maximum Severity: Severe Worsened by: deep inspiration Relieved by: breathing easier Associated Symptoms: feels like occasional spasms in that area Narrative: Does not recall any injury or movements/lifting that could have resulted in a muscle strain. Pain is low in her left low back. It does not radiate into her side, front/abdomen, chest, or lower extremity. No urinary symptoms or hematuria. Never had a kidney stone before. No history of DVT or PE. She has been doing different types of movements to try to reproduce the pain but it does not necessarily make things worse. She states she was diagnosed with an in cidentally found a hernia somewhere in her left side on a CT scan that was done for other reasons, and she states it was pointed out to her in a different area than this pain. She denies any nausea or vomiting, she has had normal bowel movements recently. - Past Medical History (1) Arthritis Status: Chronic (2) Asthma Status: Chronic (3) Chronic headaches Status: Chronic (4) Essential hypertension Status: Chronic (5) GERD (gastroesophageal reflux disease) Status: Chronic (6) Hernia Status: Chronic Comment: ULQ (7) Mitral valve prolapse Status: Chronic (8) Premature ventricular contraction Status: Chronic (9) Seasonal allergies Status: Chronic Past Medical History - Allergies and Home Meds Allergies/Adverse Reactions: Allergies acetaminophen [From Vicodin] Adverse Reaction (Verified 08/10/18 02:45) Other azithromycin [From Zithromax] Adverse Reaction (Verified 08/10/18 02:45) Rash cortisone Adverse Reaction (Verified 08/10/18 02:45) Hives hydrocodone bitartrate [From Vicodin] Adverse Reaction (Verified 08/10/18 02:45) Other PAPER TAPE Adverse Reaction (Uncoded 08/10/18 02:45) Rash Primary Care Physician: Lisset Ford MD [Primary Care Provider] - Surgical History: - - recent right ankle surgery, tonsil, wisdom teeth Smoking Status: Never smoker Drugs: None - Family History Maternal Family History: Family History (Last Reviewed 08/01/18 @ 13:14 by Amberly Rich) Father Cancer Mother Hypertension Thyroid disorder Grandmother Heart disease Family History: Reports: Hypertension Paternal Family History: Family History (Last Reviewed 08/01/18 @ 13:14 by Amberly Rich) Father Cancer Mother Hypertension Thyroid disorder Grandmother Heart disease Family History: Reports: - - leukemia, hodgkins lymphoma Review of Systems General: Denies: Chills, Fever, Sweats Cardiovascular: Denies: Chest pain, Palpitations Respiratory: Reports: Dyspnea - due to pain on inspiration only, Cough. Denies: Dyspnea on exertion Gastrointestinal: Denies: Abdominal pain, Nausea, Vomiting, Diarrhea Genitourinary: Denies: Dysuria, Hematuria, Frequency Musculoskeletal: Reports: Back pain. Denies: Extremity Pain Skin: Denies: Rash, Wounds Neurological: Denies: Headache, Weakness, Numbness Physical Exam Vital Signs/Narrative: Vital Signs Temp Pulse Resp BP Pulse Ox 08/10/18 02:47 179/99 H 08/10/18 02:40 98.3 F 118 H 16 188/100 H 97 Inital Vital Signs reviewed: Yes General: Well nourished, Well developed, - - Uncomfortable, NAD Head: Normocephalic, Atraumatic Eyes: Perrl, EOMI Neck: Supple, Nontender Cardiovascular: Regular rate, Regular rhythm, No murmurs Respiratory: No distress, CTA bilaterally, Chest nontender Abdomen: Soft, Nontender, Nondistended, Normal bowel sounds Back: Normal Inspection, - - Tender to palpation in her left low back, near or just distal/caudal to the 11th rib tip. No rash here. Negative straight leg raise, but pain slightly increases when her leg is on the way down to the bed. However, extending and flexing the thigh against resistance does not reproduce the pain. No true CVA tenderness.. Negative for: Spinal tenderness Extremities: Nontender, No edema Skin: Normal color, No rash Neurological: Alert, Oriented x3, Cranial nerves II-XII grossly intact, Normal Strength, Normal Sensation Psychological: Normal affect Diagnostic/Tx/Re-eval Impressions Abdomen/Pelvis CT 08/10/18 03:15 IMPRESSION: 1. Left lower lobe airspace consolidation with pleural effusion likely represents pneumonia. 2. Hepatomegaly and hepatic steatosis. Electronically Signed: Myrtle Gomez MD at 4:25 EST , Service support , Chest X-Ray 08/10/18 04:36 IMPRESSION: No radiographic evidence of acute cardiopulmonary disease. Electronically Signed: Myrtle Gomez MD at 5:49 EST , Service support , 08/10/18 03:15 CT Abd [Abdomen/Pelvis without Cont] [CT] Stat 08/10/18 04:36 Chest PA and Lateral [RAD] Stat Laboratory Results 08/10/18 08/10/18 03:28 03:28 Urine Color Yellow Urine Clarity Clear Urine pH 7.0 Ur Specific [place] 1.010 Urine Protein Negative Urine Glucose (UA) Normal Urine Ketones Negative Urine Occult Blood Negative Urine Nitrite Negative Urine Bilirubin Negative Urine Urobilinogen Normal Ur Leukocyte Esterase Negative Urine RBC 0 SEEN Urine WBC 0 SEEN Ur Squamous Epith Cells 0-5 SEEN Urine Bacteria RARE Urine Mucus 0 SEEN Urine Test Negative - Medical Decision Making Patient's pain is pleuritic, however it is very low lateral lumbar spine area, more suspicious for musculoskeletal pain, however NSAIDs did not help her pain at all; she took an Aleve multiple hours prior to coming to the ER, and I gave her Toradol 15 mg with no improvement. After morphine she is feeling much better, the pain is significantly dulled and she can breathe better. Her urine was normal, but we had obtained a CT abdomen/pelvis to look for causes of possible renal colic. Incidentally, she has airspace disease in the left lower lobe of the lung, with a small pleural effusion as well. I suspect this is a parapneumonic effusion. She has been having quite a bit of coughing and intermittent dyspnea lately, and in the past 1-2 months this has led to a stress echo that was unremarkable, and pulmonary function tests that led to her being placed on Brio and she is due to follow-up with pulmonology in several months. She states that her coughing is actually improved since she started the Brio a couple weeks ago. The appearance of the airspace disease on the CT is inconsistent with pulmonary infarct, she has no signs of a DVT and no risk for venous thrombo-embolic disease, and I suspect this does represent pneumonia as the radiologist interpreted it. Started her on Levaquin, and will prescribe her some pain medicine in addition to the rest of the antibiotic course, and recommended she follow-up with her venetian blind mechanic or return to the ER if worsening despite the antibiotic. However, as I discussed with the patient, the upper part of the abdominal CT seems to show the entire area of pathology and I do not think she needs a chest CT emergently at this time. I did obtain a chest x-ray since it would be easier to follow this with chest x-ray, however it appears unremarkable. There is some blunting on my interpretation on the lateral, but it is the same appearance as her chest x-ray from 2 weeks ago. ED Disposition - Plan for ED Patient: Disposition: Home or Assisted Living Chief Complaint: Flank Pain Diagnosis: Community acquired pneumonia, Parapneumonic effusion Instructions: ED Effusion Pleural, ED Pneumonia Adult Prescriptions: Oxycodone HCl/Acetaminophen [Percocet 5/325] 1 tablet PO Q6H PRN PRN 3 Days #12 tablet PRN Reason: Pain Levofloxacin [Levaquin] 750 mg PO DAILY #4 tablet Referrals: Lisset Ford MD [Primary Care Provider] - Al Prajapati MD [STAFF PHYSICIAN] - (Call for follow-up appointment information)
[2018-08-10 03:36] LABS: Mucous, Urine 0 SEEN /hpf (<or=2+); Red Blood Cells-Urine 0 SEEN /hpf (0-5); White Blood Cells 0 SEEN /hpf (0-5)
[2018-08-10 03:37] LABS: Color, Urine Yellow (Yellow); Glucose, Dipstick Normal (Normal); Ketone-Dipstick Negative (Negative); Leukocyte Esterase-Dipstick Negative /ul (Negative); Nitrite-Dipstick Negative (Negative); Occult Blood-Urine Negative /ul (Negative); Protein-Dipstick Negative (Negative); Urine Bilirubin Dipstick Negative (Negative); Urine Clarity Clear (Clear); Urine Urobilinogen Normal (Normal)
[2018-08-10 03:41] LABS: Internal QC Validated? YES +Cl - CLEAR BKGD; Pregnancy, Urine Negative Negative
[2018-08-10 03:45] LABS: Bacteria RARE /hpf (None Seen); Squamous Epithelial Cells - UA 0-5 SEEN /hpf (5-10)
--- NOTE | 2018-08-10 04:36 | RAD_ITS ---
STUDY: X-RAY CHEST REASON FOR EXAM: Female, 32 years old. Back pain radiating to both sides of the abdomen and flank pain. TECHNIQUE: PA and lateral views of the chest. COMPARISON: July 24, 2018. FINDINGS: The lungs are expanded. There is perihilar interstitial thickening present in both lungs. There is no demonstrated pleural abnormality. There is borderline cardiomegaly. Normal mediastinum and talat. Normal visualized pulmonary arteries. Normal visualized aortic arch and descending thoracic aorta. There is an increased kyphosis of the thoracic spine. Normal visualized ribs, clavicles, and shoulders. There is no demonstrated abnormality of the visualized soft tissue structures of the upper abdomen. RAD/Chest PA and Lateral IMPRESSION: No radiographic evidence of acute cardiopulmonary disease. Electronically Signed: Myrtle Gomez MD at 5:49 EST , Service support ,
[2018-08-10] MEDS: Morphine 4 MG/ML Syringe IV (04:56)
[2018-08-10] MEDS: levoFLOXacin 750 MG Tablet PO (04:59)
[2018-08-10 06:13] VITALS: BP 156/84; PULSE 107; RESP 20; O2SAT 94
== END 2018-08-10 06:14 | disposition home or self-care (01) ==
PROVIDERS: Emergency Provider Emergency Medicine; Family Provider Internal Medicine; PCP Internal Medicine
DX: J18.9 Pneumonia, unspecified organism (principal); J91.8 Pleural effusion in other conditions classified elsewhere; J45.909 Unspecified asthma, uncomplicated; I34.1 Nonrheumatic mitral (valve) prolapse; I49.3 Ventricular premature depolarization; I10 Essential (primary) hypertension; K21.9 Gastro-esophageal reflux disease without esophagitis; M19.90 Unspecified osteoarthritis, unspecified site; Z79.899 Other long term (current) drug therapy
CPT/HCPCS: 71046; 74176; 81001; 81025; 96374; 96375; 99284; A4216

== ENCOUNTER 2018-08-31 10:00 | Outpatient (RCR) | payer OTHER, SELFPAY ==
[2018-08-14 01:29] VITALS: BMI 54.3
== END 2018-08-31 23:59 ==
LOC: NS 10:00
PROVIDERS: Family Provider Internal Medicine; PCP Internal Medicine; Visit Provider Internal Medicine
DX: E66.9 Obesity, unspecified (principal); Z71.3 Dietary counseling and surveillance
CPT/HCPCS: 97803

== ENCOUNTER → 2018-09-03 08:47 | Outpatient (CLI) | payer OTHER, SELFPAY ==
[2018-08-23 10:46] VITALS: BMI 54.3
[2018-08-29 15:18] VITALS: BMI 54.3
--- NOTE | 2018-09-03 08:51 | RDU_ITS ---
Reason For Study: HYPERTENSION Right Renal Artery Left Renal Artery Right renal artery ostium Left renal artery ostium 130.0/35.1 129.0/36.9 RSV/EDV. PSV/EDV. Right renal artery proximal Left renal artery proximal PSV/EDV 122.0/32.6 PSV/EDV. 121.0/32.7 . Right renal artery mid 130.0/28.8 Left renal artery mid 122.0/29.2 PSV/EDV. PSV/EDV . Right renal artery distal Left renal artery distal 122.0/40.1 139.0/41.6 PSV/EDV. PSV/EDV. Right Renal Parenchyma Left Renal Parenchyma Upper Pole Medula 43.8/14.1 Left upper pole medulla 52.9/18.9 PSV/EDV. PSV/EDV . Right upper pole medulla EDR .32 . Left upper pole medulla EDR .36 . Right upper pole medulla R.I. .68 . Left upper pole medulla R.I. .64 . Upper Dipak Cortx 32.7/10.7 PSV/EDV. UP Cortex 29.0/9.2 PSV/EDV. Right upper pole cortex EDR .33 . Left upper pole cortex EDR .32 . Right upper pole cortex R.I. .67 . Left upper pole cortex R.I. .68 . Right lower Pole medulla 31.2/12.8 Left lower Pole medulla 42.8/13.4 PSV/EDV . PSV/EDV . Right lower pole medulla EDR .41 . Left lower pole medulla EDR .31 . Right lower pole medulla R.I. .59 . Left lower pole medulla R.I. .69 . Lower Pole Cortex 32.1/10.1 Lower Pole Cortx 34.8/9.8 PSV/EDV. PSV/EDV. Left lower pole cortex EDR .28 . Right lower pole cortex EDR .31 . Left lower pole cortex R.I. .72 . Right lower pole cortex R.I. .69 . Left Renal Hilar Right Renal Hilar LT Hilar avg 66.6/17.3 PSV/EDV . Right Hilar avg 70.7/26.4 PSV/EDV. Left hilar acceleration time 59 Right hilar acceleration time 59 m/sec. m/sec. Left Renal Dimensions Right Renal Dimensions Left kidney size 11.5 cm . Right kidney size 10.6 cm . Left cortical dimension 1.5 cm . Right cortical dimension 1.5 cm . Aorta Unable to visualize aorta due to body habitus. Interpretation Summary Renal artery velocities are bilaterally normal. Acceleration times are normal bilaterally. There is no evidence of hemodynamically significant renal artery stenosis on either side. Renovascular resistance appears to be bilaterally normal . Cortical dimensions are bilaterally normal. Kidneys appear normal in size bilaterally. The intra-abdominal aorta was not visualized due to the patient's body habitus. Ordering Physician: Homero Mohan Referring Physician: Lisset Ford Performed By: Vonda Fischer RVT
--- OUTSIDE RECORDS SUMMARY | 2018-11-05 15:55 | XMS RPT_ITS ---
:1985 Author Organization OHIP Support Name Relationship Address Phone GEOVANY GLOVER Unavailable [address] + [place] [address] GABBY CRISTINA Unavailable [address] + [place] [address] [facility] Unavailable [address] + [place] [address] GEOVANY GLOVER Unavailable [address] + [place] [address] GABBY CRISTINA Unavailable [address] + [place] [address] [facility] Unavailable [address] + [place] [address] GEOVANY GLOVER Unavailable [address] + [place] [address] GABBY CRISTINA Unavailable [address] + [place] [address] [facility] Unavailable [address] + [place] [address] ADALBERTO GEOVANY Unavailable [address] + [place] [address] GABBY CRISTINA Unavailable [address] + [place] [address] WC Unavailable [address] + [place] [address] ADALBERTO GEOVANY Unavailable [address] + [place] [address] GABBY CRISTINA Unavailable [address] + [place] [address] [facility] Unavailable [address] + [place] [address] GLOVER, GEOVANY Unavailable [address] + [place] [address] JAYANT CRISTINAELL Unavailable [address] [address] + [place] [address] [facility] Unavailable [address] + [place] [address] GLOVER, GEOVANY Unavailable [address] + [place] [address] SHYANNE MACHELL Unavailable [address] [address] + [place] [address] [facility] Unavailable [address] + [place] [address] GLOVER, GEOVANY Unavailable [address] + [place] [address] JAYANT CRISTINAELL Unavailable [address] + [place] [address] [facility] Unavailable [address] + [place] [address] GLOVER, GEOVANY Unavailable [address] + [place] [address] JAYANT CRISTINAELL Unavailable [address] [address] + [place] [address] [facility] Unavailable [address] + [place] [address] GLOVER, GEOVANY Unavailable [address] + [place] [address] SHYANNE MACHELL Unavailable [address] [address] + [place] [address] [facility] Unavailable [address] + [place] [address] GLOVER, GEOVANY Unavailable [address] + [place] [address] SHYANNE MACHELL Unavailable [address] [address] + [place] [address] [facility] Unavailable [address] + [place] [address] GLOVER, GEOVANY Unavailable [address] + [place] [address] GABBY CRISTINA Unavailable [address] + [place] [address] [facility] Unavailable [address] + [place] [address] [facility] Unavailable [address] + [place] [address] [facility] Unavailable [address] + [place] [address] [facility] Unavailable [address] + [place] [address] GLOVER, KERRIE Unavailable [address] + [place] [address] [facility] Unavailable [address] + [place] [address] [facility] Unavailable [address] + [place] [address] GLOVER, KERRIE Unavailable [address] + [place] [address] GABBY CRISTINA Unavailable [address] + [place] [address] [facility] Unavailable [address] + [place] [address] [facility] Unavailable [address] + [place] [address] GABBY CRISTINA Unavailable [address] + [place] [address] [facility] Unavailable [address] + [place] [address] JAYANT CRISTINAELL Unavailable [address] + [place] [address] [facility] Unavailable [address] + [place] [address] JAYANT CRISTINAELL Unavailable [address] + [place] [address] [facility] Unavailable [address] + [place] [address] GABBY CRISTINA Unavailable [address] + [place] [address] [facility] Unavailable [address] + [place] [address] Care Team Providers Name Role Phone MINNIE POLO (HIGH SCHOOL AUTO REPAIR TEACHER) Attending Unavailable POLO, MINNIE (HIGH SCHOOL AUTO REPAIR TEACHER) Referring Unavailable POLO, MINNIE (HIGH SCHOOL AUTO REPAIR TEACHER) Attending Unavailable POLO, MINNIE (HIGH SCHOOL AUTO REPAIR TEACHER) Referring Unavailable Moodispaw, Homero Attending Unavailable Moodispaw, Homero Referring Unavailable Moodispaw, Homero Attending Unavailable Moodispaw, Homero Referring Unavailable Oleghe, Efewongbe Primary Care Unavailable Moodispasheila, Homero Consulting Unavailable Al Prajapati Attending Unavailable Oleghe, Efewongbe Referring Unavailable Al Prajapati Attending Unavailable Moodispaw, Homero Referring Unavailable Oleghe, Efewongbe Primary Care Unavailable JAMES SUAREZ Attending Unavailable Oleghe, Efewongbe Attending Unavailable Oleghe, Efewongbe Primary Care Unavailable Guicho Hollis Attending Unavailable Mary Riley Referring Unavailable Moodispaw, Homero Attending Unavailable NadegeKenyon Referring Unavailable Moodispasheila, Homero Attending Unavailable Moodispasheila, Homero Referring Unavailable Oleghe, Efewongbe Primary Care Unavailable Oleghe, Efewongbe Attending Unavailable Oleghe, Efewongbe Referring Unavailable ASSESSMENT, HEALTH RISK Attending Unavailable ASSESSMENT, HEALTH RISK Referring Unavailable Nadege, Kenyon Primary Care Unavailable Nadege, Kenyon Attending Unavailable Kenyon Light Referring Unavailable Nadege, Kenyon Primary Care Unavailable Nadege, Kenyon Attending Unavailable Kenyon Light Primary Care Unavailable Nadege, Kenyon Attending Unavailable Kenyon Light Referring Unavailable Kenyon Light Primary Care Unavailable Nadege, Kenyon Primary Care Unavailable Nadege, Kenyon Attending Unavailable Kenyon Light Referring Unavailable MoodispaHomero sosa Consulting Unavailable Oleghe, Efewongbe Attending Unavailable Oleghe, Efewongbe Referring Unavailable Moodispaw, Homero Attending Unavailable Oleghe, Efewongbe Primary Care Unavailable Briandaissabrina, Homero Attending Unavailable MoodispaHomero sosa Referring Unavailable Moodispasheila, Homero Attending Unavailable Kenyon Light Referring Unavailable Moodispasheila, Homero Attending Unavailable Oleghe, Efewongbe Primary Care Unavailable BriandaispaHomero sosa Referring Unavailable Moodispaw, Homero Attending Unavailable Oleghe, Efewongbe Primary Care Unavailable MoodistorstenHomero sosa [facility]erring [facility] Attending Unavailable [facility] Primary Care Unavailable PROBLEMS PROBLEMS DATE TYPE CONDITION / CODE ATTENDING STATUS SOURCE 08/31/2018 Unknown E66.9 - Obesity, Olegallitoe, Active [facility] E66.9(ICD-10) Hospital Repository 08/31/2018 Unknown Z71.3 - Dietary Olegallitoe, Active [place] [facility] and [facility] Community surveillance / Hospital Z71.3(ICD-10) Repository 08/29/2018 Unknown M79.672 - Pain in Oledave, Active [place] left foot / [facility] M79.672(ICD-10) Hospital Repository 08/23/2018 Unknown I10 - Essential MoodispaHomero sosa Active [place] (primary) Community hypertension / Hospital I10(ICD-10) Repository 08/10/2018 Unknown J18.9 - Pneumonia, HEVER SUAREZLEY Active [facility] unspecified organism Community / J18.9(ICD-10) Hospital Repository 08/01/2018 Unknown J45.40 - Moderate Alo, Al Active [place] persistent asthma, Community uncomplicated / Hospital J45.40(ICD-10) Repository 08/20/2018 Unknown I36.1 - Nonrheumatic Telma, Guicho Active [facility] tricuspid (valve) Community insufficiency / Hospital I36.1(ICD-10) [...] 06/27/2018 Unknown I34.1 - Nonrheumatic Oleghe, Active [facility] mitral (valve) [facility] Community prolapse / Hospital I34.1(ICD-10) Repository 06/25/2018 Unknown 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 Pending Sale To [facility] / M72.2(ICD-10) Hospital Repository PROCEDURES PROCEDURES No Procedure Records FoundRESULTS RESULTS RENAL ARTERY DUPLEX Observed: 09/04/2018 Status: F Source: [place] 11:08 PM [facility] Cardiovascular Services [address] [place] [address] Renal Artery Duplex Ultrasound 09/03/18 0854 MR#: [id number] Acct: [id number] Name: GARRY GLOVER Rep #: [id number] : 1985 33 From: Manuel Henderson MD Attending Dr: Homero Mohan MD Status: REG CLI Ordering Dr: Homero Mohan MD Date: 09/03/18 Location: [facility] Sex: F C Admitted: Reason For [...] MD Date Dictated: 09/03/1854 Date Transcribed: 09/04/182306 Credit Control Assistant: Signed INTERNAL MEDICINE Observed: 08/30/2018 Status: F Source: [place] OFFICE VISIT 1:13 PM [facility] Internal Medicine [address] [place] [address] OFFICE VISIT Date of Service: 08/29/18 MR#: [id number] Acct: [id number] Name: GARRY GLOVER Rep #: [id number] : 1985 Provider: Lisset Ford MD Age/Sex: 33/F Location: [facility] Status: Signed Intake Vital Signs08/29/18 Body [...] was encouraged. This note was generated with [employer] dictation software. It may contain incorrect words, [...] Status: F Source: [place] REPORT 5:57 PM [facility] [address] [place] [address] OFFICE VISIT Date of Service: 08/23/18 MR#: [id number] Acct: [id number] Name: GARRY GLOVER Rep #: [id number] : 1985 Provider: Homero Mohan MD Age/Sex: 33/F Location: [facility] Status: Signed HPI HPI Details: GARRY GLOVER, [...] history of ventricular ectopy. Overall her beta klaina she appears to be doing better. She [...] 08/10/18 Pulmonary Pulmonary Function Test 07/24/18 08/23/18 7705 <Electronically signed by Homero Mohan MD> Date Homero Mohan MD Cosign Signature: Date (if applicable) CC: Kenyon Light MD EMERGENCY DEPARTMENT Observed: 08/10/2018 Status: F Source: [place] SUMMARY 6:06 AM [facility] Medical Records Department [address] [place] [address] Emergency Department Summary 08/10/18 0316 MR#: [id number] Acct: [id number] Name: GARRY GLOVER Rep #: [id number] : 1985 32 From: James Suarez MD [...] Clarity Clear Urine pH 7.0 Ur Specific Hardesty 1.010 - Medical Decision Making Patient's pain [...] course, and recommended 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 Call [facility] ([phone]) or report to the closest Emergency Room. Call 911 if necessary. 08/10/18 06 <Electronically signed by James Suarez MD> Date James Suarez MD Cosigner Signature (If Indicated): Date CC: Lisset Ford MD CHEST PA AND LATERAL Observed: 08/10/2018 Status: F Source: [place] 4:37 AM [facility] Imaging Services [address] [place] [address] Chest PA and Lateral MR#: [id number] Acct: [id number] Name: GARRY GLOVER Rep #: [id number] : 1985 F 32 From: Myrtle Gomez MD PCP: Lisset Ford MD Status: REG ER Study: Chest PA and Lateral Date of Exam: 08/10/18 Exam# [id number] Ordering Dr: James Suarez MD STUDY: X-RAY [...] CC: JAMES SUAREZ MD; Lisset Ford MD Credit Control Assistant: Signed URINALYSIS, COMPLETE Collected: 08/10/2018 Status: F Source: [place] 3:28 AM [facility] Order Comment: How was Urine Obtained? [...] URINE SEEN Performed By: #### L400.0001 #### [facility] [address] [place], [address] ,URINE Collected: 08/10/2018 Status: F Source: [place] 3:28 [facility] REPOSITORY TYPE CODE TESTS RESULT OUT OF REFERENCE UNITS RANGE LAB L400.8000 Negative Normal HCGUQUAL Negative Result Comment: Very dilute urine specimens, as indicated by a low specific gravity, may not contain service representative levels of hCG. If is still suspected, a first morning urine specimen should be collected 48 hours later and tested. Performed By: #### L400.7600 #### [facility] [address] [place], [address] ABDOMEN/PELVIS WITHOUT Observed: 08/10/2018 Status: F Source: [place] CONT 3:16 AM [facility] Imaging Services [address] [place] [address] Abdomen/Pelvis without Cont MR#: [id number] Acct: [id number] Name: GARRY GLOVER Rep #: [id number] : 1985 F 32 From: Myrtle Gomez MD PCP: Lisset Ford MD Status: REG ER Study: Abdomen/Pelvis without Cont Date of Exam: 08/10/18 Exam# [id number] Ordering Dr: James Suarez MD STUDY: CT [...] CC: JAMES SUAREZ MD; Lisset Ford MD Credit Control Assistant: Signed PULMONARY VISIT REPORT Observed: 08/01/2018 Status: F Source: [place] 2:23 PM [facility] Pulmonary Medicine of [address] [place] [address] OFFICE VISIT Date of Service: 08/01/18 MR#: [id number] Acct: [id number] Name: GARRY CRISTINA Rep #: [id number] : 1985 Provider: Al Prajapati MD Age/Sex: 32/F Location: [facility] Status: Signed Assessment AND Plan Problems 1. [...] in the why weight program here at [facility]. Patient has noted widely variable blood [...] Status: F Source: [place] CONTRAST 5:54 PM [facility] Cardiovascular Services [address] [place] [address] Stress Test Echo W/Contrast MR#: [id number] Acct: [id number] Name: GARRY CRISTINA Rep #: [id number] : 1985 32 From: Homero Mohan MD [...] MD Date Dictated: 07/27/18947 Date Transcribed: 07/27/181752 Credit Control Assistant: Signed PULMONARY FUNCTION Observed: 07/25/2018 Status: F Source: [place] REPORT COMP 5:52 AM [facility] Pulmonary Services/Neurology [address] [place] [address] MR#: [id number] Acct: [id number] Name: GARRY CRISTINA Rep #: [id number] : 1985 32 From: Al Prajapati MD Referring Dr: Homero Mohan MD Status: REG CLI Ordering Dr: Date: Location: [facility] Sex: F C COMPLETE PULMONARY FUNCTION TEST INTERPRETATION Brief HPI: Patient is a 32 year old female, currently under the care of Dr. Mohan, who presents to [facility] for complete pulmonary function tests secondary [...] MD Date Dictated: 07/24/181615 Date Transcribed: 07/24/181615 Credit Control Assistant: UMANG Signed CHEST PA AND LATERAL Observed: 07/24/2018 Status: F Source: [place] 8:54 AM [facility] Imaging Services [address] [place] [address] Chest PA and Lateral MR#: [id number] Acct: [id number] Name: GARRY CRISTINA Rep #: [id number] : 1985 F 32 From: Tod Ellis DO PCP: Lisset Ford MD Status: REG CLI Study: Chest PA and Lateral Date of Exam: 07/24/18 Exam# [id number] Ordering Dr: Homero Mohan MD STUDY: X-RAY [...] Signed: Tod EllisDO at 22:21 EST Tel [phone], Service support , CC: Lisset Ford MD; Homero Mohan MD Credit Control Assistant: Signed CARDIOLOGY VISIT Observed: 07/12/2018 Status: F Source: [place] REPORT 11:46 AM [facility] [address] [place] [address]. [address] [place] [address] OFFICE VISIT Date of Service: 07/12/18 MR#: [id number] Acct: [id number] Name: GARRY CRISTINA Rep #: [id number] : 1985 Provider: Homero Mohan MD Age/Sex: 32/F Location: [facility] Status: Signed HPI HPI Details: GARRY CRISTINA, is a 32 F who presents to the office today for outpatient cardiovascular consultation. She had previously been evaluated by the [facility] with her last outpatient cardiovascular [...] also states she has now joined the [facility] Y weight program. She is due [...] PO DAILY 06/27/18 [History Confirmed 07/12/18] [facility]LY [facility] Medical History GERD (gastroesophageal reflux disease) (Chronic) [...] she is going to enroll in the [facility] weight loss program. Hopefully if she [...] Observed: 07/12/2018 Status: F Source: [place] BY [facility] 10:20 AM [facility] [address] [place] [address] [address] performed by [facility] 07/12/18 1019 MR#: [id number] Acct: [id number] Name: GARRY CRISTINA Rep #: [id number] : 1985 32 From: Homero Mohan MD Attending Dr: Homero Mohan MD Status: DEP AMB Ordering Dr: Homero Mohan MD Date: 07/12/18 Location: [facility] Sex: F C Admitted: [facility]/12 Lead EKG performed by [facility] ECG Report Interpretation Sinus Rhythm Electronically signed on 07/12/2018 at 11:53 by Homero Mohan Software Version [id number] 07/12/18 1154 Date Homero Mohan MD CC: Kenyon Light MD Date Dictated: 07/12/18 1019 Date Transcribed: 07/12/18 101 Credit Control Assistant: PM Signed INTERNAL MEDICINE Observed: 07/02/2018 Status: F Source: [place] OFFICE VISIT 1:37 PM [facility] Internal Medicine [facility] [place] [address] [place] [address] OFFICE VISIT Date of Service: 06/27/18 MR#: [id number] Acct: [id number] Name: GARRY CRISTINA Rep #: [id number] : 1985 Provider: Lisset Ford MD Age/Sex: 32/F Location: [facility] Status: Signed Intake Vital Signs06/27/18 Height [...] 06/27/18] Nurse's Note: Has an appt with [employer] [facility]. Needs a Referral on 07/12/18 [facility] Medical History Hernia (Chronic) Chronic headaches (Chronic) [...] is scheduled to follow up with a [employer] [facility] soon and a Holter, ECHO and EKG [...] acute distress Orientation: awake, oriented x3, alert [facility] Head: atraumatic, normocephalic Resp Effort AND Inspection: [...] COMPLETE W/ Observed: 06/28/2018 Status: F Source: [place] CONTRAST 8:28 PM [facility] Cardiovascular Services [address] [place] [address] Echo Complete W/ Contrast 06/28/18 0755 MR#: [id number] Acct: [id number] Name: GARRY CRISTINA Rep #: [id number] : 1985 32 From: Homero Mohan MD Attending Dr: Homero Mohan MD Status: REG CLI Ordering Dr: Homero Mohan MD Date: 06/28/18 Location: [facility] Sex: F C Admitted: Reason For [...] MD Date Dictated: 06/28/18754 Date Transcribed: 06/28/182026 Credit Control Assistant: Signed FOOT MIN 3 VIEWS Observed: 06/13/2018 Status: F Source: [place] 1:20 PM [facility] Imaging Services [address] [place] [address] Foot min 3 Views MR#: [id number] Acct: [id number] Name: GARRY CRISTINA Rep #: [id number] : 1985 F 32 From: Marvin Boudreaux DO PCP: Kenyon Light MD Status: REG CLI Study: Foot min 3 Views Date of Exam: 06/13/18 Exam# [id number] Ordering Dr: Kenyon Light MD STUDY: X-RAY [...] Service support , CC: Kenyon Light MD Credit Control Assistant: Signed PROGRESS Observed: 04/20/2018 Status: COMPLETED Source: [place] 9:37 AM [facility] REPOSITORY HNO ID: [id number] Author: Minnie (Kari) Aleksandra Service: (none) Author [...] if abnormal Follow-up as needed. Minnie Polo APRN.HIGH SCHOOL AUTO REPAIR TEACHER CNOV Observed: 04/20/2018 Status: COMPLETED Source: [place] 9:30 AM [facility] REPOSITORY Office Visit (WOOB) GARRY CRISTINA ([id number]) 1985 F Date Time Provider Department 04/20/18 9:30 AM MINNIE POLO ([facility]) WOOB During your visit today, we [...] Minnie Polo APRN.CNP Referring Provider: MINNIE POLO ([facility]) [[id number]] Allergies As of Date: 04/20/2018 Noted Allergy Reaction CINNAMON 10/04/2011 12 - Shortness of Breath CORTISONE ACETATE 01/14/2017 14 - Other: See Comments AZITHROMYCIN 01/31/2018 4 - Hives SEASONAL ALLERGIES 01/13/2015 5 - Intolerance Comments: Seasonal Allergies VICODIN (HYDROCODONE-ACETAMINOPHE*01/31/2018 4 - Hives Date Reviewed: 04/20/2018 Reviewed by: Minnie ([facility]) Aleksandra - Fully Assessed Reason for [...] 04/17/2018 Status: F Source: [place] 10:21 AM [facility] Order Comment: Has Patient had X-rays with Contrast this admission? N Is Patient on Heparin? N TYPE CODE TESTS RESULT OUT OF RANGE REFERENCE UNITS LAB L501.5200 1.6-2.6 mg/dL Normal MG 2.1 Performed By: #### L501.5200, L501.9520, L506.0400 #### [facility] [address] [facility]. [place], [place], [address] THYROID STIM HORMONE Collected: 04/17/2018 Status: F Source: [place] ([facility]) 10:21 AM [facility] Order Comment: Has Patient had X-rays with Contrast this admission? N Is Patient on Heparin? N TYPE CODE TESTS RESULT OUT OF RANGE REFERENCE UNITS LAB L501.9520 0.358-3.74 uIU/mL Normal TSH 1.52 Performed By: #### L501.5200, L501.9520, L506.0400 #### [facility] [address] [facility] [place], [address] T4 FREE DIRECT Collected: 04/17/2018 Status: F Source: [place] 10:21 AM [facility] Order Comment: Has Patient had X-rays with Contrast this admission? N Is Patient on Heparin? N TYPE CODE TESTS RESULT OUT OF RANGE REFERENCE UNITS LAB L506.0400 0.76-1.46 ng/dL Normal T4 FREE 0.85 DIRECT Performed By: #### L501.5200, L501.9520, L506.0400 #### [facility] [address] [place] [address]. [place], [place], [address] URINALYSIS, EMPLOYEE Collected: 04/17/2018 Status: F Source: [place] 10:20 AM [facility] TYPE CODE TESTS RESULT OUT OF [...] ESTERASE Negative Performed By: #### L400.0100 #### [facility] [address] [place] [address]. [place], [place], [address] CBC, EMPLOYEE Collected: 04/17/2018 Status: F Source: [place] 10:20 AM [facility] TYPE CODE TESTS RESULT OUT OF [...] Lymph 4.00 Performed By: #### L100.0200 #### [facility] [address] [facility]. [place], [place], [address] NICOTINE URINE DRUG Collected: 04/17/2018 Status: F Source: [place] SCREEN 10:20 AM [facility] TYPE CODE TESTS RESULT OUT OF [...] of Nicotine. Performed By: #### L505.6240 #### [facility] [address] [facility]. [place], [place], [address] EMPLOYEE PROFILE Collected: 04/17/2018 Status: F Source: [place] 10:20 AM [facility] TYPE CODE TESTS RESULT OUT OF [...] LDH 171 Performed By: #### L500.2900 #### [facility] [address] [place], [address] CNOV Observed: 01/31/2018 Status: COMPLETED Source: [place] 4:00 PM [facility] REPOSITORY Office Visit (WOOB) GARRY CRISTINA ([id number]) 1985 F Date Time Provider Department 01/31/18 [...] less iron deficiency anemia in pill users. half-way use is associated with a decreased incidence [...] and mild fluid retention. There is no shelter weight gain with the use of the [...] necessary health information. Referring Provider: MINNIE POLO ([facility]) [[id number]] Allergies As of Date: 01/31/2018 Noted Allergy [...] of contraceptive pills [Z30.011] Order(s):REMOVE INTRAUTERINE DEVICE [[id number]] Order #: [id number] Norethin Tavares-Eth Estrad-FE (09/02, ,) 1 mg-20 [...] less iron deficiency anemia in pill users. doughnut batter mixer use is associated with a decreased incidence [...] and mild fluid retention. There is no shelter weight gain with the use of the [...] 01/31/18 PROGRESS Observed: 01/31/2018 Status: COMPLETED Source: [place] 3:51 PM [facility] REPOSITORY HNO ID: [id number] Author: Minnie Sen) Aleksandra Service: (none) Author [...] in office in 3 months. Minnie Polo APRN.HIGH SCHOOL AUTO REPAIR TEACHER ALLERGIES ALLERGIES DATE TYPE / CODE NAME / CODE REACTION SEVERITY SOURCE Drug hydrocodone Other Unknown [place] 9 Allergy/[id number]( bitartrate/J12040 Community SNOMED [facility]) 1555(RXNORM) Hospital Repository Drug acetaminophen/F00 Other Unknown Nii 9 Allergy/037023009( 1579804(RXNORM) Community SNOM[facility]) Hospital Repository Drug azithromycin/F006 Rash Unknown Dierks 9 Allergy/606357061( 614889(RXNORM) Pending Sale To [facility] SNOMED CT) Hospital Repository Drug cortisone/B509530 Hives Unknown Dierks 9 Allergy/373436869( 945(RXNORM) Pending Sale To [facility] SNOMED CT) Hospital Repository Miscellaneous PAPER TAPE Rash Unknown [place]ierks 9 Allergy/104403826( Pending Sale To [facility] SNOMED CT) Hospital Repository DRUG AZITHROMYCIN HIVES [place] 8 INGREDI/386514824( Clinic Main SNOMED CT) [place] Repository DRUG/128632128(SNO [facility] [place] [address]) MINOPHEN Clinic Main [place] Repository DRUG CORTISONE ACETATE OTHER: SEE C [facility] 7 INGREDI/336299057( [facility] Main SNOMED CT) [place] Repository Environ/380522908( SEASONAL INTOLERANCE [place] [address]) ALLERGIES [facility] Main [place] Repository DRUG CINNAMON SHORTNESS OF [facility] 2 INGREDI/290937762( [facility] Main SNOMED CT) [place] Repository ENCOUNTERS ENCOUNTERS ADMIT/DISCHARGE ACCOUNT ADMITTING ENCOUNTER LOCATION SOURCE NUMBER CLASS 09/03/2018 [id number] Ambulatory [facility] ing:[facility] Repository 08/31/2018 [id number] Ambulatory [facility] ing:NS Repository 08/29/2018/08/29/19 [id number] Ambulatory BMSBuilding:B Nii 19 MS.[facility] Repository 08/23/2018/08/23/19 [id number] Ambulatory BMSBuilding:B Nii [address] MS[address] Hospital Repository 08/10/2018/08/10/20 [id number] Emergency [address] HospitalBuild Hospital ing:ED Repository 08/03/2018/08/13/20 [id number] Ambulatory [address] HospitalBuild Hospital ing:NS Repository 08/01/2018/08/01/20 [id number] Ambulatory BMSBuilding:B Nii 18 MS.[facility] Repository 07/28/2018/07/30/20 [id number] Ambulatory BMSBuilding:W [place] Repository 07/27/2018 [id number] Ambulatory BMSBuilding:B Nii MS.CF.[facility] Repository 07/27/2018 [id number] Ambulatory [facility] HospitalBuild Hospital ing:CVS Repository 07/24/2018 [id number] Ambulatory BMSBuilding:W [facility] Repository 07/24/2018 [id number] Ambulatory [facility] HospitalBuild Hospital ing:PSN Repository 07/12/2018/07/12/20 [id number] Ambulatory BMSBuilding:B Nii 18 MS.[facility] Repository 06/28/2018 [id number] Ambulatory BMSBuilding:W [facility] Repository 06/28/2018 [id number] Ambulatory [facility] HospitalBuild Hospital ing:CVS Repository 06/27/2018/06/27/20 [id number] Ambulatory BMSBuilding:B [place] 18 MS.[facility] Repository 06/13/2018 [id number] Ambulatory [facility] HospitalBuild Hospital ing:CVS Repository 06/13/2018 [id number] Ambulatory BMSBuilding:W [facility] Repository 06/06/2018 [id number] Ambulatory [facility] HospitalBuild Hospital ing:RAD.FUTUR Repository E 05/29/2018 [id number] Ambulatory [facility] HospitalBuild Hospital ing:LAB.FUTUR Repository E 04/20/2018/04/23/20 [id number] Ambulatory [address] Repository 04/17/2018 [id number] Ambulatory [facility] ing:LAB Repository 04/17/2018 [id number] Ambulatory [facility] ing:EMPH Repository 01/31/2018/02/03/[id number] Repository PAYERS PAYERS ENCOUNTER GUARANTOR PAYER SUBSCRIBER SOURCE 09/03/2018 GARRY Cortez Primary Insurance:[facility] GARRY Bales [id number] [facility] Number: [id number], [place] [id number] Repository [address]Rei: (330) Date:6242-16-92[phone] () 8[address]41BLEIAOSMC, [place] [address]BK: CHECK WEBSITE 09/03/2018 Secondary NOT GIVENUNK Nii Insurance:SELF PAY [facility] Number: Effective Repository Date:2018-08-23 08/31/2018 GARRY Cortez Primary Insurance:[facility] GARRY Bales [id number] [facility] Number: [id number], [place] [id number] Repository [address]Wkp: (330) Date:0942-54-58RV [phone] () 19598GXVOVZOXM, [place] [address]IE: CHECK WEBSITE 08/31/2018 Secondary NOT GIVENUNK Nii Insurance:SELF PAY [facility] Number: Effective Repository Date:2018-08-14 08/29/2018 GARRY Cortez Primary Insurance:[facility] GARRY Bales [id number] [facility] Number: [id number], [place] [id number] Repository [address]Nxi: (330) Date:4645-80-95GV [phone] () 94808AUFAUDZTA, [place] [address]DL: CHECK WEBSITE 08/29/2018 Secondary NOT GIVENUNK [place]ierks Insurance:SELF PAY [facility] Number: Effective Repository Date:2018-08-23 08/23/2018 GARRY Cortez Primary Insurance:[facility] GARRY [id number] [facility] SERVICES[facility] Cent[facility] Number: [id number], [place] [id number] Repository [address]Jnt: (330) Date:2663-74-22HZ [phone] () [address]1516IOOBFTOJV, [place] [address]FD: CHECK WEBSITE 08/23/2018 Secondary NOT GIVENUNK Dierks Insurance:SELF PAY [facility] Number: Effective Repository Date:2018-07-24 08/10/2018 GARRY E Primary Insurance:[facility] GARRY Bales [id number] [facility] Number: [id number], [place] [id number] Repository [address]Qqj: (330) Date:4580-11-27DX [phone] () [address]KYPAOBJBR, [place] [address]OW: CHECK WEBSITE 08/10/2018 Secondary NOT GIVENUNK Dierks Insurance:SELF PAY [facility] Number: Effective Repository Date:2018-08-10 08/03/2018 GARRY E Primary Insurance:[facility] GARRY Bales [id number] [facility] Number: [id number], [place] [id number] Repository [address]Ygd: (330) Date:1569-44-55WS [phone] () 27611NMPAUGFRK, [place] [address]LA: CHECK WEBSITE 08/03/2018 Secondary NOT GIVENUNK Nii Insurance:SELF PAY [facility] Number: Effective Repository Date:2018-07-18 08/01/2018 GARRY E Primary Insurance:[facility] GARRY Bales [id number] [facility] Number: [id number], [place] [id number] Repository [address]Lfq: (330) Date:8727-63-15MK [phone] () 52814WUWDBENKR, [place] [address]AI: CHECK WEBSITE 08/01/2018 Secondary NOT GIVENUNK Dierks Insurance:SELF PAY [facility] Number: Effective Repository Date:2018-07-31 07/28/2018 ZAKIA Porter Primary OVI De Jesusoster [id number] Insurance:MEDICARE KERNDOB: [facility] PART A BPolicy Number: [id number], [place] [id number] Repository [address]Ipw: (330) Date:2018-07-28 [phone] () 07/28/2018 Secondary OVI J Dierks Insurance:HUMANA KERNDOB: [facility] [id number] Hospital Number: Repository [id number] Date:1081-66-66OP [address] [place] [address]ZG: 07/28/2018 Tertiary NOT GIVENUNK Nii Insurance:SELF PAY [facility] Number: Effective Repository Date:2018-07-28 07/27/2018 GARRY Cortez Primary Insurance:[facility] GARRY Mehul Nii [id number] [facility] Number: [id number], [place] [id number] Repository [address]Ssw: (330) Date:0534-71-19PS [phone] () 24875JGXYKNBCU, [place] [address]BF: CHECK WEBSITE 07/27/2018 Secondary NOT GIVENUNK Nii Insurance:SELF PAY [facility] Number: Effective Repository Date:2018-07-27 07/27/2018 GARRY Cortez Primary Insurance:[facility] GARRY Cortez Dierks [id number] [facility]: [facility] Number: [id number], [place] [id number] Repository [address]Voz: (330) Date:6418-86-72GC [phone] () 36586OHSWHJEOJ, [place] [address]GW: CHECK WEBSITE 07/27/2018 Secondary NOT GIVENUNK Nii Insurance:SELF PAY [facility] Number: Effective Repository Date:2018-07-12 07/24/2018 GARRY Cortez Primary Insurance:[facility] GARRY E Nii [id number] [facility] SERVICESPolicy Number: [id number], [place] [id number] Repository [address]Kxy: (330) Date:3143-55-05VY [phone] () [address]89VOLJHFPEX, [place] [address]QY: CHECK WEBSITE 07/24/2018 Secondary NOT GIVENUNK Dierks Insurance:SELF PAY [facility] Number: Effective Repository Date:2018-07-24 07/24/2018 GARRY SONAL Primary Insurance:[facility] GARRY Bales [id number] [facility]: [facility] SERVICESPolicy Number: [id number], [place] [id number] Repository [address]Rgn: (330) Date:2298-84-40LK [phone] () 632[address]GTJYQDUQU, [place] [address]DI: CHECK WEBSITE 07/24/2018 Secondary NOT GIVENUNK Dierks Insurance:SELF PAY [facility]: Effective Repository Date:2018-07-12 07/12/2018 GARRY SONAL Primary Insurance:[facility] GARRY ACOSTALING1419 [facility]: [facility] Number: [id number], [place] [id number] Repository [address]Zpw: (330) Date:4372-95-92MI [phone] () 385[address]HJZABIGUE, [place] [address]VA: CHECK WEBSITE 07/12/2018 Secondary NOT GIVENUNK Nii Insurance:SELF PAY [facility]: Effective Repository Date:2018-07-12 06/28/2018 GARRY SONAL Primary Insurance:[facility] GARRY De Jesusoster [id number] [facility]: [facility] SERVICES[facility]icy Number: [id number], [place] [id number] Repository 899[address]Qzv: (330) Date:7667-28-30FH [phone] () 25374EBZCFOGNX, [place] [address]WR: CHECK WEBSITE 06/28/2018 Secondary NOT GIVENUNK Nii Insurance:SELF PAY [facility] Number: Effective Repository Date:2018-06-28 06/28/2018 GARRY SONAL Primary Insurance:[facility] GARRY CRISTINA1419 [facility]: [facility] Number: [id number], [place] [id number] Repository 135[address]Tzf: (330) Date:7098-14-90KO [phone] () 544[address]ZNIASXRVN, [place] [address]AM: CHECK WEBSITE 06/28/2018 Secondary NOT GIVENUNK Nii Insurance:SELF PAY [facility] Number: Effective Repository Date:2018-06-28 06/27/2018 GARRY SONAL Primary Insurance:[facility] GARRY CRISTINA1419 [facility]: [facility] Number: [id number], [place] [id number] Repository [address]Mtv: (330) Date:5454-50-98JR [phone] () 84169HEQTMGGWV, [place] [address]QV: CHECK WEBSITE 06/27/2018 Secondary NOT GIVENUNK Dierks Insurance:SELF PAY [facility] Number: Effective Repository Date:2018-06-12 06/13/2018 GARRY SONAL Primary Insurance:[facility] GARRY CRISTINA1419 [facility]: [facility] Number: [id number], [place] [id number] Repository [address]Met: (330) Date:3024-60-50XJ [phone] () 33860TCYXLXTJL, [place] [address]YR: CHECK WEBSITE 06/13/2018 Secondary NOT GIVENUNK Nii Insurance:SELF PAY [facility] Number: Effective Repository Date:2018-06-13 06/13/2018 GARRY SONAL Primary Insurance:[facility] GARRY ACOSTALING1419 [facility]: [facility] Number: [id number], [place] [id number] Repository [address]29[address]Vdz: (330) Date:3976-35-82BN [phone] () [address]CBVECASIE, [place] [address]PR: CHECK WEBSITE 06/13/2018 Secondary NOT GIVENUNK Nii Insurance:SELF PAY [facility] Number: Effective Repository Date:2018-06-13 06/06/2018 GARRY SONAL Primary Insurance:[facility] GARRY PRUITT Nii [id number] [facility]ENTERLINGDOB: [facility] [place] Number: [id number] Health Care Facility [address]Htu: [id number] Repository Date:3054-35-91PO [address] () [address]5546ZNJXEOUME, [place] [address]JM: CHECK WEBSITE 06/06/2018 Secondary NOT GIVENUNK Dierks Insurance:SELF PAY [facility] Number: Effective Repository Date:2018-06-06 05/29/2018 Garry Sonal Primary Insurance:[facility] Garry Pruitt Dierks [id number] [facility] HealthlingD[facility]: [facility] Number: [id number] Health Care Facility [address]Gmi: [id number] Repository Date:4028-54-59FT [address] () [address]KQAJXONUX, [place] [address]TQ: CHECK WEBSITE 05/29/2018 Secondary NOT GIVENUNK Nii Insurance:SELF PAY [facility] Number: Effective Repository Date:2018-04-17 04/17/2018 Garry Sonal Primary Insurance:[facility] Garry Pruitt Dierks [id number] [facility]: [facility], [place] Number: [id number] Health Care Facility [address]Tkg: [id number] Repository Date:1798-82-80HV [address]OX () [address]5767LHDICNZMB, [place] [address]ZP: CHECK WEBSITE 04/17/2018 Secondary NOT GIVENUNK Nii Insurance:SELF PAY [facility] Number: Effective Repository Date:2018-04-17 04/17/2018 Garry Pruitt Primary Insurance:SELF NOT GIVENVICENTE [id number] [facility] Alvino Aguirre, Number: Effective [facility] [address]Bue: Date:2018-04-17 Repository ()
== END ==
PROVIDERS: Family Provider Internal Medicine; PCP Internal Medicine; Referring Provider Internal Medicine Cardiovascular Disease; Visit Provider Internal Medicine Cardiovascular Disease
DX: I10 Essential (primary) hypertension (principal)
CPT/HCPCS: 93975

== ENCOUNTER → 2018-11-06 07:19 | Outpatient (CLI) | payer OTHER, SELFPAY ==
[2018-10-25 13:04] VITALS: BMI 54.3
--- NOTE | 2018-11-06 07:25 | MRI_ITS ---
STUDY: MRI RIGHT ANKLE WITHOUT CONTRAST REASON FOR EXAM: Female, 33 years old. Ankle sprain. Osteochondral defect. Prior arthroscopy. Peroneal tendons Breitman. Lateral ankle stabilization. TECHNIQUE: Standardized fat and water weighted pulse sequences were obtained in all 3 orthogonal planes. COMPARISON: October 09, 2015. FINDINGS: Postsurgical changes at the lateral malleolus extending into the talus (axial images 19 through 23 series 3 and coronal images 16 through 18 series 8). Chronic severe thickening of the anterior talofibular ligament (axial images 2122 series 3). Chronic severe thickening of the posterior talofibular ligament. Chronic severe thickening of the calcaneofibular ligament. Mild soft tissue swelling. No focal fluid collection. Stable mild plantar fascial thickening (sagittal image 16 series 9). Normal plantar calcaneal tubercles. Normal intrinsic muscles of the rearfoot. Small Achilles tendon enthesophyte with normal Achilles tendon. Normal posterior tibialis tendon. Normal flexor digitorum longus tendon. Normal flexor hallucis longus tendon. Intact peroneus longus and brevis tendons. Normal tibialis anterior tendon. Normal extensor hallucis longus tendon. Normal extensor digitorum longus tendons. Mild distal tibiofibular syndesmotic ligamentous complex thickening anteriorly and posteriorly. Edema at the sinus Tarsi (sagittal image 10 series 10). Normal deltoid ligamentous complexes. Normal plantar calcaneonavicular (spring) ligament. Intact Lisfranc treatment (axial image 18 series 11). Normal tibiotalar articulation. Normal talar dome. Mild subtalar arthrosis (sagittal image 10 series 9 and coronal image 15 series 8). Normal talonavicular articulation. Normal calcaneocuboid articulation. Normal navicular-cuneiform articulations. MRI/Lower Ext Joint Only (Routine) IMPRESSION: Stable mild plantar fascial thickening versus small fibroma Severe chronic lateral ankle sprains Mild chronic syndesmotic ligament thickening Lateral surgical fixation/stabilization with mild subtalar arthrosis Small Achilles enthesophyte Mild soft tissue swelling with sinus Tarsi edema Electronically Signed: Gregor Wong DO at 11:51 EDT Tel , Service support ,
== END ==
PROVIDERS: Family Provider Internal Medicine; PCP Internal Medicine; Referring Provider Podiatrist; Visit Provider Podiatrist
DX: S93.409S Sprain of unspecified ligament of unspecified ankle, sequela (principal); S93.439A Sprain of tibiofibular ligament of unspecified ankle, initial encounter; M25.571 Pain in right ankle and joints of right foot; M93.279 Osteochondritis dissecans, unspecified ankle and joints of foot
CPT/HCPCS: 73721

== ENCOUNTER → 2019-01-21 06:42 | Outpatient (CLI) | payer OTHER, SELFPAY ==
[2018-08-01 13:12] VITALS: BMI 54.3
[2019-01-16 12:32] VITALS: BMI 55.0
--- NOTE | 2019-01-21 12:58 | PFTCOMP ---
COMPLETE PULMONARY FUNCTION TEST INTERPRETATION Brief HPI: Patient is a 33 year old female, currently under the care of myself, who presents to [facility] for complete pulmonary function tests secondary to diagnosis of asthma. Respiratory therapist reports good effort and reproducible results. Interpretation: Forced expiration spirometry shows no large airways obstructive ventilatory defect with an FEV1 of 70% predicted. There is no significant bronchodilator response by strict ATS criteria. Spirograms are of good quality and plateau normally. The respiratory flow volume loop shows decreased expiratory flow rates at high lung volumes consistent with small airways obstruction. Lung volumes by body plethysmography show a decreased total lung capacity at 4.32 L, 81% predicted. All other lung volumes are reduced symmetrically. Diffusion capacity by carbon monoxide is decreased at 71% predicted. The airway resistance is normal. Compared to previous pulmonary function tests from 07/24/2018, there has been no significant change. Impression: Mild restrictive ventilatory defect with a symmetric reduction diffusing capacity, but no changes compared to previous testing in July 2018.
== END ==
PROVIDERS: Family Provider Internal Medicine; PCP Internal Medicine; Referring Provider Internal Medicine Critical Care Medicine; Visit Provider Internal Medicine Critical Care Medicine
DX: J45.40 Moderate persistent asthma, uncomplicated (principal)
CPT/HCPCS: 94060; 94726; 94729

== ENCOUNTER → 2019-02-12 13:28 | Outpatient (CLI) | payer OTHER, SELFPAY ==
[2019-02-12 12:46] VITALS: BMI 55.5
--- NOTE | 2019-02-12 13:30 | RAD_ITS ---
STUDY: X-RAY CHEST REASON FOR EXAM: Female, 33 years old. Shortness of breath TECHNIQUE: PA and lateral views of the chest. COMPARISON: 08/10/2018 FINDINGS: The lungs are clear and expanded. There is no demonstrated pleural abnormality. Normal size heart. Normal mediastinum and talat. Normal visualized pulmonary arteries. Normal visualized aortic arch and descending thoracic aorta. Normal visualized thoracic spine. Normal visualized ribs, clavicles, and shoulders. There is no demonstrated abnormality of the visualized soft tissue structures of the upper abdomen. RAD/Chest PA and Lateral IMPRESSION: Normal x-ray examination of the chest. Electronically Signed: Keith Sanon, at 13:49 EDT Tel , Service support ,
[2019-02-12 15:53] LABS: Absolute Neutrophil Count 6.4 X10^3/uL (2.0-7.7); Basophil% 0.4 % (0-1); Neutrophil # 6.42 X10^3/uL (2.7-7.7); White Blood Count 11.4 K/mm3 (4.4-11.0)
[2019-02-12 16:04] LABS: Eosinophils% 6.2 % (0-5); Hemoglobin 11.4 g/dl (12.0-15.0); Lymphocyte % 30.5 % (19-41); Mean Corp Hgb Conc 31.7 g/gl (32-36); Mean Corpuscular Hgb 25.9 pg (27.0-32.0); Mean Corpuscular Volume 81.6 fL (81-99); Mean Platelet Vol. 9.8 fl (6.2-12.0); Monocyte% 5.6 % (0-10); Neutrophil % 56.5 % (47-70); POSITIVE COUNT NO; POSITIVE DIFFERENTIAL NO; POSITIVE MORPHOLOGY NO; Platelet Count 438 K/mm3 (150-450); RBC Distribution Width CV 15.3 % (11.6-14.6); RBC Distribution Width SD 45.4 fl (35.1-43.9); Red Blood Count 4.41 M/mm3 (4.2-5.4)
[2019-02-12 16:05] LABS: Absolute Lymphocyte Count 3.47 X10^3/ul (0.83-4.51); Basophil# 0.04 X10^3/uL; Eosinophil# 0.71 X10^3/uL; Lymphocyte # 3.47 X10^3/ul (4.0); Monocyte# 0.64 X10^3/uL
[2019-02-17 14:06] LABS: Alternaria alternata <0.10 kU/L (Class 0); Aspirgillus flavus Negative (Neg:<1:1); Aspirgillus fumigatus Negative (Neg:<1:1); Aspirgillus niger Negative (Neg:<1:1); Bermuda Grass 0.27 kU/L (Class 0/I); Bluegrass, Kentucky 1.43 kU/L (Class III); Cat Hair/Dander, Standard 2.18 kU/L (Class III); D farinae Mite 3.24 kU/L (Class III); D pteronyssinus 3.47 kU/L (Class III); Elm, American White 0.11 kU/L (Class 0/I); Oak, White <0.10 kU/L (Class 0); Plantain, English <0.10 kU/L (Class 0); Ragweed, Short/Common 0.37 kU/L (Class I)
[2019-02-17 16:33] LABS: Immunoglobulin E 104 IU/mL (6-495); Mouse Urine 0.74 kU/L (Class II)
== END ==
PROVIDERS: Family Provider Internal Medicine; PCP Internal Medicine; Referring Provider Nurse Practitioner Acute Care; Visit Provider Nurse Practitioner Acute Care
DX: J45.909 Unspecified asthma, uncomplicated (principal)
CPT/HCPCS: 36415; 71046; 82785; 85025; 86003; 86606